=== PATIENT | male | born 1965 | race Caucasian/White ===

== ENCOUNTER 2017-10-18 07:49 | Emergency (ER) | payer BC ==
[~2017-10-18] VITALS: Ht 177.8 cm; Wt 150.3 kg
[~2017-10-18 07:49] MED LIST: ALBU1AER9 INH; ASPI81TA28 PO; ATOR-26 PO; CRG25 PO; LSX20 PO; MELO15TA4 PO
[2017-10-18 07:55] VITALS: TEMP 36.4; Ht 177.8 cm; Wt 150.3 kg
--- NOTE | 2017-10-18 08:31 | EMERGENCY ROOM VISIT NOTE ---
History First contact with patient: 07:56 Chief Complaint: KNEEPAIN Stated Complaint: PAIN IN LEFT KNEE History of Present Illness The patient is a 52 year old male who presents to the Emergency Room with complaints of left knee pain that started 2 days ago. He reports a general aching in his knee that has progressively worsened, now he is having increased pain in the leg with bending and walking, states it hurt too much to walk on the leg. He states the pain is constant, aching and throbbing, worse with bending the knee, better with straightening and resting the knee, 8/10. He has tried Tylenol without relief. He reports a history of a cracked knee Of the left knee approximately 20 years ago, but has not had any ongoing complications related to that. He denies any injuries, twisting motions or falling on the knee. He denies any fevers or chills, nausea, vomiting, chest pain, shortness of breath, swelling in the leg on a numbness or tingling in the leg, rashes. He does state that he has been out hunting, he is unsure of any exposure to tick bites. He also reports a possible history of gout. Review of Systems A complete 10 point review of systems was reviewed with the patient with pertinent positives and negatives as per history of present illness. All else were negative. Past Medical/Surgical History Medical Problems: (1) Calculus Of Ureter (2) Cardiac Dysrhythmias Nec (3) Congestive Heart Failure Nos (4) Diastolic heart failure Family History Diabetes mellitus FH: heart disease FHx: cancer FHx: gallbladder disease Hypertension Kidney disease Social History Smoking Status: Never Smoker Alcohol Use: heavy Drug Use: none Marital Status: Housing Status: lives with significant other Occupation Status: employed Current/Historical Medications Scheduled Cephalexin Monohydrate (Keflex), 500 MG PO QID Sulfamethoxazole-Trimethoprim (Bactrim Ds 800MG/160MG), 1 TAB PO BID Scheduled PRN Hydrocodone/Acetaminophen 5MG/325MG ([place] 5MG/325MG), 1-2 TABLET PO Q6 PRN for Pain Allergies Reviewed in chart Physical Exam Vital Signs Date Time Temp Pulse Resp B/P (MAP) Pulse Ox O2 Delivery O2 Flow Rate FiO2 10/18/17 11:09 98 20 138/79 97 10/18/17 10:09 70 20 183/103 96 10/18/17 07:55 36.4 76 22 205/125 97 Room Air Physical Exam CONSTITUTIONAL: No acute distress, but does appear in some pain. Nontoxic appearing. Well appearing and well nourished. Alert and oriented X 4 with normal affect. Morbidly obese. HEENT: Normocephalic, atraumatic. Pupils equal, round and reactive to light, EOMI. TMs normal. Pharynx normal. Moist mucous membranes. NECK: Supple, full active range of motion without discomfort. RESPIRATORY: Clear to auscultation bilaterally with no wheezing, crackles, rhonchi or stridor. Equal expansion bilaterally. CARDIOVASCULAR: Regular rate and rhythm with no murmurs, rubs or gallops. Normal peripheral perfusion. No edema. GASTROINTESTINAL: Soft, nontender, nondistended. Bowel sounds present in all quadrants. MUSCULOSKELETAL: There is an area of patchy erythema across the anterior knee, tender to palpation, hot to touch. No fluctuance or drainable abscess. No significant effusion within the left knee joint. Patient can fully extend his knee, but has pain with attempts to Floxin knee beyond 45. No pain or swelling in the left ankle. Full range of motion of all other joints without discomfort. INTEGUMENTARY: No rash or other significant dermatologic conditions noted. NEUROLOGIC: Cranial nerves II-XII grossly intact. No focal neurologic deficits noted. Medical Decision & Procedures ER Provider Diagnostic Interpretation: L KNEE 3 VIEWS CLINICAL HISTORY: Left knee pain. History of patellar fracture. COMPARISON: None FINDINGS: Alignment of the left knee is anatomic. No fracture or joint effusion is identified. No osseous lesion is noted. Joint spaces are preserved. There is minimal osteophytosis of the left knee. IMPRESSION: No acute fracture or joint effusion of the left knee. Laboratory Results 10/18/17 09:02 Red Blood Count 4.04, Mean Corpuscular Volume 100.7, Mean Corpuscular Hemoglobin 35.6, Mean Corpuscular Hemoglobin Concent 35.4, Mean Platelet Volume 10.2, Neutrophils (%) (Auto) 69.3, Lymphocytes (%) (Auto) 17.2, Monocytes (%) ( Auto) 11.3, Eosinophils (%) (Auto) 1.3, Basophils (%) (Auto) 0.7, Neutrophils # (Auto) 4.24, Lymphocytes # (Auto) 1.05, Monocytes # (Auto) 0.69, Eosinophils # ( Auto) 0.08, Basophils # (Auto) 0.04 10/18/17 09:02 Test 10/18/17 09:02 White Blood Count 6.11 K/uL (4.8-10.8) Red Blood Count 4.04 M/uL (4.7-6.1) Hemoglobin 14.4 g/dL (14.0-18.0) Hematocrit 40.7 % (42-52) Mean Corpuscular Volume 100.7 fL (80-100) Mean Corpuscular Hemoglobin 35.6 pg (25-34) Mean Corpuscular Hemoglobin Concent 35.4 g/dl (32-36) Platelet Count 197 K/uL (130-400) Mean Platelet Volume 10.2 fL (7.4-10.4) Neutrophils (%) (Auto) 69.3 % Lymphocytes (%) (Auto) 17.2 % Monocytes (%) (Auto) 11.3 % Eosinophils (%) (Auto) 1.3 % Basophils (%) (Auto) 0.7 % Neutrophils # (Auto) 4.24 K/uL (1.4-6.5) Lymphocytes # (Auto) 1.05 K/uL (1.2-3.4) Monocytes # (Auto) 0.69 K/uL (0.11-0.59) Eosinophils # (Auto) 0.08 K/uL (0-0.5) Basophils # (Auto) 0.04 K/uL (0-0.2) RDW Standard Deviation 46.8 fL (36.4-46.3) RDW Coefficient of Variation 12.7 % (11.5-14.5) Immature Granulocyte % (Auto) 0.2 % Immature Granulocyte # (Auto) 0.01 K/uL (0.00-0.02) Erythrocyte Sedimentation Rate 24 mm/hr (0-14) Anion Gap 5.0 mmol/L (3-11) Est Creatinine Clear Calc Drug Dose 156.7 ml/min Estimated GFR () 118.7 Estimated GFR (Non- 102.4 BUN/Creatinine Ratio 18.4 (10-20) Uric Acid 6.6 mg/dl (2.6-7.2) Calcium Level 9.1 mg/dl (8.5-10.1) Total Bilirubin 0.4 mg/dl (0.2-1) Aspartate Amino Transf (AST/SGOT) 64 U/L (15-37) Alanine Aminotransferase (ALT/SGPT) 78 U/L (12-78) Alkaline Phosphatase 70 U/L (45-117) C-Reactive Protein 0.93 mg/dl (0-0.29) Total Protein 6.7 gm/dl (6.4-8.2) Albumin 3.3 gm/dl (3.4-5.0) Globulin 3.4 gm/dl (2.5-4.0) Albumin/Globulin Ratio 1.0 (0.9-2) Lyme Disease IgG Antibody NEG (NEG) Lyme Disease IgM Antibody NEG (NEG) Medications Administered Medications (Trade) Dose Ordered Sig/Ashley Route Start Time Stop Time Status Last Admin Dose Admin Hydromorphone HCl (Dilaudid Inj) 0.5 mg NOW STAT IV 10/18/17 09:18 10/18/17 09:19 DC 10/18/17 09:36 0.5 MG Trimethoprim/ Sulfamethoxazole (Septra Ds 800/ 160MG Tab) 1 tab NOW STAT PO 10/18/17 09:19 10/18/17 09:20 DC 10/18/17 09:35 1 TAB Ceftriaxone Sodium 2000 mg/ Dextrose 70 ml @ 140 mls/hr ONE ONCE IV 10/18/17 09:45 10/18/17 10:14 DC 10/18/17 10:08 140 MLS/HR Medical Decision CC: Patient presenting with complaint of left knee pain Interpretation of Labs: No leukocytosis, no anemia, no significant electrolyte abnormality, normal renal function. Mildly elevated CRP and ESR. Uric acid within normal limits. Negative Lyme testing. Differential Diagnosis: Includes, but not limited to knee sprain/strain, contusion, abrasion, ligamentous injury, fracture, cellulitis, gouty arthritis, Lyme, septic joint, among others. Medication Reconciliation: I attest that I have personally reviewed the patient' s current medication list. Vital signs review: I reviewed the patient's vital signs and interpret them as follows: T: Afebrile; BP: Hypertensive; HR: Tachycardic; RR: Mildly tachypneic; Pulse Ox: Within normal limits on room air. Blood pressure screening: The patient was found to have an elevated blood pressure and was referred to their primary doctor for recheck and further treatment. Summary: Patient was evaluated at bedside, history and physical exam performed. Patient alert and oriented, no acute distress but does appear uncomfortable and in pain. Resting comfortably in the stretcher. There is erythema of the anterior left knee, hot and tender to palpation, pain worsened with flexion, but improved with extension. There is no significant joint effusion or swelling of the knee. Neurovascularly intact distal to the knee. Orders were placed at bedside for labs, IV fluid for hydration, x-ray of the left knee to evaluate for bony abnormality. Patient discussed with Dr. Deleon, who agrees with my assessment and plan. Labs reviewed as above, no significant abnormalities. X-ray imaging negative for any bony abnormality. Exam findings consistent for cellulitis of the knee, I doubt septic knee joint at this time. Patient was covered with IV Rocephin and given a dose of PO Bactrim, sent out with Rx for Bactrim and Keflex. The patient was placed in a knee immobilizer and offered crutches, he states he has crutches at home. He is neurovascularly intact after placement of the immobilizer. Patient reassessed multiple times throughout ED stay, he reports improved pain after medications and immobilization. Tachycardia resolved. He remains afebrile. He was updated on all results and plan for discharge home, he was instructed to follow closely with his PCP and orthopedics. He was also given strict return precautions should his symptoms worsen in any way, he verbalized understanding. Patient was discharged home in stable condition and ambulatory with a knee immobilizer. Medication Reconcilliation Current Medication List: was personally reviewed by me Patient states he is currently not taking any medications Blood Pressure Screening Patient's blood pressure: Elevated blood pressure Blood pressure disposition: Referred to PCP Impression Primary Impression: Cellulitis of left knee Additional Impression: Left knee pain Departure Information Dispostion Home / Self-Care Condition GOOD Prescriptions Hydrocodone/Acetaminophen 5MG/325MG ([place] 5MG/325MG) Tab 1-2 TABLET PO Q6 Y for Pain, #20 TAB PRN PAIN Prov: Vee Bañuelos CRNP 10/18/17 Sulfamethoxazole-Trimethoprim (Bactrim Ds 800MG/160MG) 1 Tab Tab 1 TAB PO BID for 10 Days, #20 TAB Prov: Vee Bañuelos CRNP 10/18/17 Cephalexin Monohydrate (Keflex) 500 Mg Cap 500 MG PO QID for 10 Days, #40 CAP Prov: Abby Bañuelosah RICARDO Norton 10/18/17 Referrals No Doctor, Assigned (PCP) Tony Willett D.O. Patient Instructions ED Infec Skin Cellulitis, ED Knee Pain [place], [place]ine[facility] Additional Instructions You were seen in the Emergency Department for his left knee pain and was found to have cellulitis (skin infection). You have been prescribed Keflex and Bactrim to be taken for 10 days. Both of these medications are antibiotics. Stop these medications and contact a medical provider if you were to develop any significant adverse side effects including: wheezing, shortness of breath, passing out, vomiting, or a diffuse rash. Always take antibiotics as directed and COMPLETE the ENTIRE course regardless of the improvement of your symptoms. Look for signs of worsening infection of the wound including: increased pain, swelling, foul discharge, streaking up the leg, or fevers/chills/feeling ill. If any of these are noticed you should return to the Emergency Department for further assessment and treatment. For pain control, you can use the following [id number] medicines (if >12 yo): - Extra strength (500mg/tab) Tylenol (acetaminophen) 1-2 tabs every 6-8 hours as needed. Do not exceed 6 tablets in a 24 hour period. Avoid taking more than 3 grams (3000 mg) of Tylenol per day. This includes any other sources of acetaminophen you may take on a regular basis. - Regular strength (200 mg/tab) Advil (ibuprofen) 1-2 tabs every 4-6 hours as needed. Do not exceed a dose of 3200 mg per day. Apply warm compresses to the area to help with pain and also to help improve the infection. Review the knee immobilizer for comfort and a able to walk on the knee normally without any pain. Follow-up with the orthopedic surgeon if you continue have knee pain for more than 4-5 days. Follow up with your PCP in 2 days for recheck of your infection, or sooner for worsening symptoms. Return to the emergency department if your symptoms worsen despite treatment course outlined above. Work Instructions Return To Work: 1 day Problem Qualifiers Additional Impression: Left knee pain Chronicity: acute Qualified Codes: M25.562 - Pain in left knee
[2017-10-18] MEDS ORDERED: MoRPHine SULFATE 10 MG/ML CARP/VIAL IV STA (08:47)
--- NOTE | 2017-10-18 09:03 | DIAGNOSTIC IMAGING REPORT ---
L KNEE 3 VIEWS CLINICAL HISTORY: Left knee pain. History of patellar fracture. COMPARISON: None FINDINGS: Alignment of the left knee is anatomic. No fracture or joint effusion is identified. No osseous lesion is noted. Joint spaces are preserved. There is minimal osteophytosis of the left knee. IMPRESSION: No acute fracture or joint effusion of the left knee. Electronically signed by: Anmol Diaz M.D. 10/18/2017 9:02 AM Dictated Date/Time: 10/18/2017 9:01 AM
--- NOTE | 2017-10-18 09:13 | EMERGENCY ROOM VISIT NOTE ---
ED Visit Note First contact with patient: 07:56 I have seen and examined this patient with Vee Bañuelos and generally agree with the treatment plan as discussed. Problem List Medical Problems: (1) Calculus Of Ureter Status: Resolved (2) Cardiac Dysrhythmias Nec Status: Resolved (3) Congestive Heart Failure Nos Status: Chronic (4) Diastolic heart failure Status: Resolved Current/Historical Medications No Active Prescriptions or Reported Meds Allergies Coded Allergies: No Known Allergies (Unverified , 10/18/17) Vital Signs Date Time Temp Pulse Resp B/P (MAP) Pulse Ox O2 Delivery O2 Flow Rate FiO2 10/18/17 07:55 36.4 76 22 205/125 97 Room Air Laboratory Results Test 10/18/17 08:43 Departure Information Prescriptions No Active Prescriptions or Reported Meds Referrals No Doctor, Assigned (PCP) Patient Instructions [facility]
[2017-10-18] MEDS ORDERED: HYDROmorphone INJ 0.5 MG/0.5 ML SYR IV STA (09:18)
[2017-10-18] MEDS ORDERED: CEFTRIAXONE SOD INJ 1 GM ADDVIAL IV STA (09:19)
[2017-10-18] MEDS ORDERED: SULFAMETHOXAZOLE/TRIMETHOPRIM DS 800/160MG TAB PO STA (09:19)
[2017-10-18 09:24] LABS: BASO % 0.7 %; BASO ABS # 0.04 K/uL (0-0.2); COMPLETE YES; EOS % 1.3 %; HEMATOCRIT 40.7 % (42-52); IG% 0.2 %; LYMPH % 17.2 %; LYMPH ABS # 1.05 K/uL (1.2-3.4); MEAN CELL VOLUME 100.7 fL (80-100); MEAN CORPUSCULAR HEMOGLOBIN 35.6 pg (25-34); MEAN CORPUSCULAR HGB CONC 35.4 g/dl (32-36); MEAN PLATELET VOLUME 10.2 fL (7.4-10.4); MONO % 11.3 %; NEUT % 69.3 %; PLATELET COUNT 197 K/uL (130-400); RED BLOOD COUNT 4.04 M/uL (4.7-6.1); WHITE BLOOD COUNT 6.11 K/uL (4.8-10.8)
[2017-10-18] MEDS ORDERED: CEFTRIAXONE SOD INJ 2000 MG in DEXTROSE 5% 50ML IV ONE (09:45)
[2017-10-18 09:49] LABS: BUN/CREATININE RATIO 18.4 (10-20); C-REACTIVE PROTEIN 0.93 mg/dl (0-0.29); CALCIUM 9.1 mg/dl (8.5-10.1); CREATININE 0.82 mg/dl (0.60-1.40); POTASSIUM 4.3 mmol/L (3.5-5.1); URIC ACID 6.6 mg/dl (2.6-7.2)
[2017-10-18 10:16] LABS: LYME DISEASE AB IGG NEG (NEG); LYME DISEASE AB IGM NEG (NEG)
[2017-10-18] MEDS ORDERED: SULF800T23 PO (10:26)
[2017-10-18] MEDS ORDERED: CEPH500C PO (10:26)
[2017-10-18] MEDS ORDERED: HYDR-5688 PO (10:29)
[2017-10-18 11:09] VITALS: BP 138/79; PULSE 98; O2SAT 97
== END 2017-10-18 11:11 | disposition home or self-care (01) ==
LOC: C.EDB 07:50
DX: L03.116 Cellulitis of left lower limb (principal); I49.9 Cardiac arrhythmia, unspecified; I50.30 Unspecified diastolic (congestive) heart failure; Z87.442 Personal history of urinary calculi; Z72.89 Other problems related to lifestyle; Z83.3 Family history of diabetes mellitus; Z82.49 Family history of ischemic heart disease and other diseases of the circulatory system; Z80.9 Family history of malignant neoplasm, unspecified; Z83.79 Family history of other diseases of the digestive system; Z84.1 Family history of disorders of kidney and ureter

== ENCOUNTER → 2017-11-01 | Outpatient (CLI) | payer BC ==
[~2017-11-01] MED LIST changes: -ALBU1AER9 INH; -ASPI81TA28 PO; -ATOR-26 PO; -CRG25 PO; +HYDR-5688 PO; -LSX20 PO; -MELO15TA4 PO
--- NOTE | 2017-11-01 10:49 | DIAGNOSTIC IMAGING REPORT ---
MRI OF THE LEFT KNEE WITHOUT CONTRAST CLINICAL HISTORY: Left knee pain clicking and instability. COMPARISON STUDY: Left knee radiographs October 18, 2017. TECHNIQUE: Utilizing a 1.5 Marcie magnet and dedicated coil, multiplanar, multiecho imaging of the left knee was performed without intravenous or intraarticular contrast. FINDINGS: Alignment of the left knee is anatomic. Extensor mechanism is intact. There is a small left knee joint effusion. There is increased signal intensity within the fibers of the anterior cruciate ligament however the ACL appears intact. The posterior cruciate ligament is intact. The medial collateral ligament and lateral collateral ligament complex are intact. This study is mildly compromised by motion artifact. Lateral meniscus is intact with slight irregularity of the body. There is no definite lateral meniscal tear. There is a complex tear involving the body and posterior horn of the medial meniscus. The meniscus is diminutive. The meniscus is partially extruded and slightly extends into the meniscal gutter. There is mild chondrosis within the patellofemoral compartment. There is moderate chondrosis within the medial compartment. IMPRESSION: 1. Complex tear of the body and posterior horn the medial meniscus which is partially extruded and diminutive. Portion of medial meniscus extends into the meniscal gutter. 2. Moderate chondrosis of the medial compartment with mild chondrosis within the patellofemoral compartment. 3. Findings suggestive of mucoid degeneration of the anterior cruciate ligament. 4. Trace joint effusion. Electronically signed by: Anmol Diaz M.D. 11/01/2017 10:47 AM Dictated Date/Time: 11/01/2017 10:32 AM
== END | disposition home or self-care (01) ==
LOC: C.MRI 09:34
PROVIDERS: ATTEND Family Medicine
DX: S83.232A Complex tear of medial meniscus, current injury, left knee, initial encounter (principal); X58.XXXA Exposure to other specified factors, initial encounter

== ENCOUNTER 2019-05-22 20:23 | Inpatient (IN) ==
--- OUTSIDE RECORDS SUMMARY | 2019-05-22 20:25 | External Medical Summary | Continuity of Care Document ---
:1965 Author Name Sally Yancey Address Unavailable Unavailable , Care Team Providers Name Role Phone Sally Yancey Unavailable [email or web address] Unavailable Unavailable Problems Active medical history not documented Allergies and Adverse Reactions Allergy history not documented Medications Medications not documented Procedures Procedures not documented Immunizations Immunizations not documented Plan of Treatment Planned Observations Planned Goals not documented Results No Known Results Results not documented
[2019-05-22] MEDS ORDERED: SODIUM CHLORIDE 0.9% 1000ML 1,000 ML IV ONE (21:25)
[2019-05-22] MEDS ORDERED: MECLIZINE HCL 25 MG TAB PO STA (21:25)
[2019-05-22] MEDS ORDERED: SODIUM CHLORIDE 0.9% 1000ML 1,000 ML IV SCH (21:30)
--- NOTE | 2019-05-22 21:58 | CT Scan Report ---
CT head/brain wo con CLINICAL HISTORY: 53 years-old Male presenting with gait instability. TECHNIQUE: Multidetector CT imaging of the head was performed without the use of intravenous contrast . IV contrast: None. One or more dose lowering techniques were used consistent with the principles of ALARA (as low as reasonably achievable), including automatic exposure control, mA or kV adjustment t o individual patient size, and/or use of iterative reconstruction. COMPARISON: 07/12/2015. CT DOSE (mGy.cm): The estimated cumulative dose is 537.48 mGy.cm. FINDINGS: Alkylation Operator topogram: Unremarkable. Ventricles and sulci normal in size. No hemorrhage. Brain parenchyma normal in appearance with preser chas robins-white differentiation. No acute territorial infarct. No mass effect or midline shift. No ext ra-axial fluid collection. Paranasal sinuses and mastoid air cells clear. Calvarium intact. IMPRESSION: 1. No acute intracranial abnormality. Electronically signed by: Aravind Herron M.D. 05/22/2019 9:56 PM
[2019-05-22 21:59] LABS: Basophils # (auto) 0.03 K/uL (0-0.2); Basophils % (auto) 0.4 %; Eosinophils # (auto) 0.04 K/uL (0-0.5); Eosinophils % (auto) 0.5 %; Hematocrit (blood only) 39.3 % (42-52); Hemoglobin 13.6 g/dL (14.0-18.0); Immature Granulocytes # (auto) 0.02 K/uL (0.00-0.02); Immature Granulocytes % (auto) 0.3 %; Lymphocytes # (auto) 1.25 K/uL (1.2-3.4); Lymphocytes % (auto) 16.4 %; Mean Corpuscular Hgb Conc 34.6 g/dL (32-36); Mean Corpuscular Volume 104.5 fL (80-100); Mean Platelet Volume 9.7 fL (7.4-10.4); Monocytes # (auto) 0.44 K/uL (0.11-0.59); Monocytes % (auto) 5.8 %; Neutrophils # (auto) 5.84 K/uL (1.4-6.5); Neutrophils % (auto) 76.6 %; Platelet Count 120 K/uL (130-400); RDW Coefficient of Variation 13.4 % (11.5-14.5); Red Blood Count 3.76 M/uL (4.7-6.1); White Blood Count 7.62 K/uL (4.8-10.8)
--- NOTE | 2019-05-22 22:12 | XRay Report ---
XR chest 1V portable CLINICAL HISTORY: 53 years-old Male presenting with weakness, dizziness. TECHNIQUE: Portable upright AP view of the chest was obtained. COMPARISON: 07/12/2015. FINDINGS: Cardiac silhouette top normal in size. No focal opacity. No large effusion or pneumothorax. Osseous s tructures normal. Upper abdomen normal. IMPRESSION: 1. Borderline cardiomegaly. No other evidence of acute cardiopulmonary disease. Electronically signed by: Aravind Herron M.D. 05/22/2019 10:10 PM
[2019-05-22 22:15] LABS: Albumin Level 3.7 gm/dl (3.4-5.0); BUN Creatinine Ratio 17.3 (10-20); Calcium 8.9 mg/dl (8.5-10.1); Creatinine Clr Calc Pharmacy 122.8 ml/min; Est GFR (African American) 110.4; Est GFR (Non-African American) 95.3; Magnesium 1.9 mg/dl (1.8-2.4)
[2019-05-22 22:26] LABS: Albumin Globulin Ratio 1.2 (0.9-2); Bilirubin,Total 0.4 mg/dl (0.2-1); Total Protein 6.7 gm/dl (6.4-8.2)
[2019-05-22] MEDS ORDERED: ASPIRIN CHEW 324 MG PO STA (22:38)
[2019-05-22] MEDS ORDERED: ASPIRIN 81 MG CHEW ONE (22:41)
[2019-05-22] MEDS ORDERED: GABAPENTIN 1200MG ALCOHOL WITHDRAWAL LOAD PO STA (23:22)
[2019-05-22] MEDS ORDERED: LORazepam 3 MG/6 ML VIAL IV PRN (23:22)
[2019-05-22] MEDS ORDERED: LORazepam 2 MG/4 ML VIAL IV PRN (23:22)
[2019-05-22] MEDS ORDERED: LORazepam 1 MG/2 ML VIAL IV PRN (23:22)
[2019-05-22] MEDS ORDERED: MULTI-VITAMIN INFUSION 10 ML, THIAMINE HCL 100 MG, FOLIC ACID 1 MG in SODIUM CHLORIDE 0... IV STA (23:23)
[2019-05-22] MEDS ORDERED: ATIVAN IV ALCOHOL WITHDRAWL IV SCH (23:30)
[2019-05-23] MEDS ORDERED: GABAPENTIN 600 MG TAB PO SCH (01:00)
--- NOTE | 2019-05-23 01:29 | History & Physical Report ---
Date of Service May 23, 2019 Assessment & Plan (1) Gait instability: Multifactorial : Alcoholism/beginning alcohol withdrawal Hypertensive urgency Rule out CVA, ? Aspirin failure Rule out neuropathy secondary to alcoholism Chronic diastolic heart failure, patient euvolemic to dry Thrombocytopenia, new onset, ? Secondary to alcohol liver disease Complicated bronchitis, no sepsis Chronic anemia, baseline hemoglobin of 13 Medical telemetry Neurochecks DT precautions MRI/MRA of the brain RE gait instability rule out stroke Continue home aspirin for stroke prevention Permissive hypertension until stroke ruled out May need Neurology eval pending work-up results Doxycycline, nebs for complicated bronchitis DVT prophylaxis. SCDs RE thrombocytopenia Full code History of Present Illness Chief Complaint: Gait imbalance Primary Care Provider: Toro Reyes MD History obtained from patient, family, and records. Medical history significant for chronic diastolic heart failure (EF 60%, TTE 2011 ), hypertension, hyperlipidemia, asthma as per records, alcohol abuse, chronic anemia baseline hemoglobin of 13. Recent confinement April 2011 for chest pain. ACS ruled out with normal coronaries on cardiac cath. Yesterday patient noted unsteady gait symptoms without dizziness. Patient having trouble with balance and focusing. Head pressure complaints. No chest pain, no S OB. Had to call off work because of illness. Junky cough symptoms for a few weeks now secondary to sinusitis symptoms. No fever, no chills, no aspiration. Patient admits to not being compliant with home aspirin Rx. Patient given aspirin upon arrival at the ER. 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 Allergies Allergy/AdvReac Type Severity Reaction Status Date / Time morphine AdvReac Intermediate ITCHING Verified 05/22/19 22:56 Home Medications Home Medications Medication Instructions Recorded Confirmed Type carvedilol 6.25 mg PO BID 05/22/19 05/22/19 History Past Med/Surg History Medical History Hypertension Tinnitus Social History Preferred Language: Greenlandic Communication Ability: Effective Door Person Required: No Beliefs That Will Affect Care: None Current Living Situation: Spouse Other Information That Helps Us Care for You: No Feels Safe at Home: Yes Safety Concerns: Feels Safe At This Time Smoking Status: Unknown if ever smoked Hx Alcohol Use: Yes Alcohol type: other Hx Substance Use: No Review of Systems Review of Systems: As per HPI, all 10 systems reviewed, all other ROS negative Physical Exam Physical Exam: GENERAL: uncomfortable, tremulous, obese, no respiratory distress, alcoholic fetor SKIN: Pallor normal color, warm HEENT: Partial alopecia, pale palpebral conjunctivae, no ptosis, dry buccal mucosa NECK : Supple, short, no tenderness CHEST : Occasional wheeze, no tenderness HEART : RRR, no obvious murmurs ABDOMEN: Some distention, nontender EXTREMITIES : Minimal LE swelling/tenderness, no other conspicuous deformities noted NEUROLOGIC : Coherent, no facial asymmetry, tremulous, gait and stance not asses sed Results & Data Vital Signs (Past 12 Hours) Vital Signs Temp Pulse Pulse Resp BP BP Pulse Ox 05/23/19 00:56 76 18 180/101 H 96 05/22/19 23:45 75 18 181/103 H 97 05/22/19 22:30 74 14 183/106 H 94 05/22/19 22:00 78 13 175/113 H 96 05/22/19 21:57 82 17 184/104 H 98 05/22/19 21:30 71 22 161/101 H 05/22/19 21:00 70 16 154/93 H 95 05/22/19 20:57 69 21 94 05/22/19 20:50 68 18 155/101 H 94 05/22/19 20:24 36.5 C 71 16 172/101 H 95 Laboratory Results Laboratory Results WBC 7.62 K/uL (4.8-10.8) 05/22/19 21:37 RBC 3.76 M/uL (4.7-6.1) L 05/22/19 21:37 Hgb 13.6 g/dL (14.0-18.0) L 05/22/19 21:37 Hct 39.3 % (42-52) L 05/22/19 21:37 MCV 104.5 fL (80-100) H 05/22/19 21:37 MCH 36.2 pg (25-34) H 05/22/19 21:37 MCHC 34.6 g/dL (32-36) 05/22/19 21:37 RDW Std Deviation 51.0 fL (36.4-46.3) H 05/22/19 21:37 RDW Coeff of Shayy 13.4 % (11.5-14.5) 05/22/19 21:37 Plt Count 120 K/uL (130-400) L 05/22/19 21:37 MPV 9.7 fL (7.4-10.4) 05/22/19 21:37 Immature Gran % (Auto) 0.3 % 05/22/19 21:37 Neut % (Auto) 76.6 % 05/22/19 21:37 Lymph % (Auto) 16.4 % 05/22/19 21:37 [place] % (Auto) 5.8 % 05/22/19 21:37 Eos % (Auto) 0.5 % 05/22/19 21:37 Baso % (Auto) 0.4 % 05/22/19 21:37 Immature Gran # (Auto) 0.02 K/uL (0.00-0.02) 05/22/19 21:37 Neut # (Auto) 5.84 K/uL (1.4-6.5) 05/22/19 21:37 Lymph # (Auto) 1.25 K/uL (1.2-3.4) 05/22/19 21:37 [place] # (Auto) 0.44 K/uL (0.11-0.59) 05/22/19 21:37 Eos # (Auto) 0.04 K/uL (0-0.5) 05/22/19 21:37 Baso # (Auto) 0.03 K/uL (0-0.2) 05/22/19 21:37 Sodium 142 mmol/L (136-145) 05/22/19 21:37 Potassium 4.0 mmol/L (3.5-5.1) 05/22/19 21:37 Chloride 108 mmol/L (98-107) H 05/22/19 21:37 Carbon Dioxide 27 mmol/L (21-32) 05/22/19 21:37 Anion Gap 7.0 (3-11) 05/22/19 21:37 BUN 16 mg/dl (7-18) 05/22/19 21:37 Creatinine 0.92 mg/dl (0.6-1.4) 05/22/19 21:37 Est Cr Clr Drug Dosing 122.8 ml/min 05/22/19 21:37 Est GFR ( Amer) 110.4 05/22/19 21:37 Est GFR (Non-Af Amer) 95.3 05/22/19 21:37 BUN/Creatinine Ratio 17.3 (10-20) 05/22/19 21:37 Glucose 106 mg/dl (70-99) H 05/22/19 21:37 Calcium 8.9 mg/dl (8.5-10.1) 05/22/19 21:37 Magnesium 1.9 mg/dl (1.8-2.4) 05/22/19 21:37 Total Bilirubin 0.4 mg/dl (0.2-1) 05/22/19 21:37 AST 42 U/L (15-37) H 05/22/19 21:37 ALT 25 U/L (12-78) 05/22/19 21:37 Alkaline Phosphatase 67 U/L (45-117) 05/22/19 21:37 Total Protein 6.7 gm/dl (6.4-8.2) 05/22/19 21:37 Albumin 3.7 gm/dl (3.4-5.0) 05/22/19 21:37 Globulin 3.0 gm/dl (2.5-4.0) 05/22/19 21:37 Albumin/Globulin Ratio 1.2 (0.9-2) 05/22/19 21:37 TSH 1.230 uIu/ml (0.300-4.500) 05/22/19 21:37 Ethyl Alcohol mg/dL 207.7 mg/dl (0-3) H 05/22/19 23:[address] head: No acute intracranial pathology Chest x-ray: Cardiomegaly EKG as per my interpretation : rate 70, NSR, normal axis, no ischemia
[2019-05-23] MEDS ORDERED: PHARMACIST DISCHARGE MED REC CONSULT PRN (02:31)
[2019-05-23] MEDS ORDERED: ACETAMINOPHEN 325 MG TAB PO PRN (02:31)
[2019-05-23] MEDS ORDERED: XOPENEX/ATROVENT 1.25mg/0.5MG NEB COMBO NEB SCH (02:31)
[2019-05-23] MEDS ORDERED: NITROGLYCERIN SL 0.4 MG/TAB TAB SL PRN (02:31)
[2019-05-23] MEDS: DOXYCYCLINE HYCLATE 100 MG CAP PO SCH ×3 (03:00→21:07)
[2019-05-23] MEDS: CARVEDILOL 6.25 MG TAB PO SCH ×3 (03:00→21:04)
[2019-05-23 03:16] LABS: Appearance Urine Clear (Clear); Bacteria Urine Automated Negative (Negative); Bilirubin Urine Negative (Negative); Blood Urine 1+ (Negative); Color Urine Yellow; Glucose Urine UA Negative (Negative); Ketones Urine Negative (Negative); Leukocyte Esterase Urine Negative (Negative); Nitrite Urine Negative (Negative); Protein Urine 1+ (Negative); RBC Urine Automated 0-4 /hpf (0-4); Specific Gravity Urine 1.014 (1.000-1.030); Urobilinogen Urine Negative (Negative); WBC Urine Automated 0 /hpf (0-5)
[2019-05-23] MEDS: GABAPENTIN 600 MG TAB PO SCH ×3 (05:29→21:46)
[2019-05-23 06:33] LABS: Basophils # (auto) 0.04 K/uL (0-0.2); Basophils % (auto) 0.8 %; Eosinophils # (auto) 0.05 K/uL (0-0.5); Hematocrit (blood only) 36.2 % (42-52); Hemoglobin 12.2 g/dL (14.0-18.0); Immature Granulocytes # (auto) 0.01 K/uL (0.00-0.02); Immature Granulocytes % (auto) 0.2 %; Lymphocytes # (auto) 1.85 K/uL (1.2-3.4); Lymphocytes % (auto) 35.3 %; Mean Corpuscular Hgb Conc 33.7 g/dL (32-36); Mean Corpuscular Volume 103.7 fL (80-100); Mean Platelet Volume 9.4 fL (7.4-10.4); Monocytes # (auto) 0.46 K/uL (0.11-0.59); Monocytes % (auto) 8.8 %; Neutrophils # (auto) 2.83 K/uL (1.4-6.5); Neutrophils % (auto) 53.9 %; Platelet Count 113 K/uL (130-400); RDW Coefficient of Variation 13.2 % (11.5-14.5); RDW Standard Deviation 49.9 fL (36.4-46.3); Red Blood Count 3.49 M/uL (4.7-6.1); White Blood Count 5.24 K/uL (4.8-10.8)
--- NOTE | 2019-05-23 06:41 | Magnetic Resonance Report ---
MR brain wo con HISTORY: 53 years-old Male stroke acute dizziness with gait instability COMPARISON: MRA of the head of same day, CT head 05/22/2019 TECHNIQUE: Multiplanar multisequence MRI of the brain was obtained without the use of IV contrast. FINDINGS: No restricted diffusion to suggest acute or subacute infarction. The midline structures including the corpus callosum, brainstem, optic chiasm, pituitary and pineal glands appear unremarkable on the sag ittal T1 series. No cerebellar tonsillar herniation. Degenerative changes noted about the imaged cerv ical spine. No acute intracranial hemorrhage, midline shift, abnormal extra-axial collection, hydrocephalus or in tracranial mass. Minimal patchy T2/FLAIR hyperintensities of the cerebral hemispheres bilaterally, li danna of no clinical significance. Findings may reflect early developing chronic microvascular ischemi c disease. Major flow voids at the level of the skull base appear patent. Mastoid air cells are clear . Minimal mucosal thickening of the paranasal sinuses. Skull, soft tissues and orbits are unremarkabl e. IMPRESSION: No acute intracranial abnormality. The above report was generated using voice recognition software. It may contain grammatical, syntax o r spelling errors. Electronically signed by: Abdulkadir Hutton M.D. 05/23/2019 6:40 AM
[2019-05-23 06:45] LABS: INR 1.1 (0.9-1.1)
--- NOTE | 2019-05-23 06:55 | Magnetic Resonance Report ---
MRA OF THE INTRACRANIAL CIRCULATION WITHOUT CONTRAST CLINICAL HISTORY: Stroke. Visual disturbance. Balance difficulties. COMPARISON STUDY: Head CT May 22, 2019. TECHNIQUE: Utilizing a 1.5 Marcie magnet and 3-D [id number] technique, unenhanced MRA of the intra cranial circulation was obtained. FINDINGS: The bilateral M1, M2, A1 and A2 segments are patent. There is no intracranial aneurysm. The intracranial portion of the right vertebral artery is diminutive. 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 The left vertebral artery is dominant. The basilar artery is diminutive, due to large bilate ral posterior communicating arteries. The bilateral posterior screw arteries are patent. No abrupt ve ssel cut off is identified. IMPRESSION: 1. No abrupt vessel cut off. No intracranial aneurysm. 2. 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 Diminutive basilar artery due to la rge bilateral posterior communicating arteries. Electronically signed by: Anmol Diaz M.D. 05/23/2019 6:53 AM
[2019-05-23 07:05] LABS: Albumin Level 3.2 gm/dl (3.4-5.0); BUN Creatinine Ratio 16.5 (10-20); Creatinine Clr Calc Pharmacy 151.4 ml/min; Est GFR (African American) 122.9; Est GFR (Non-African American) 106.1; Potassium 3.6 mmol/L (3.5-5.1)
[2019-05-23 07:08] LABS: Albumin Globulin Ratio 1.2 (0.9-2); Bilirubin,Total 0.6 mg/dl (0.2-1); Globulin 2.6 gm/dl (2.5-4.0); Total Protein 5.9 gm/dl (6.4-8.2)
[2019-05-23] MEDS: LEVALBUTEROL 1.25MG/0.5ML NEB INH SCH ×3 (07:09→19:06)
[2019-05-23] MEDS: IPRATROPIUM BROMIDE NEB SOLN 0.02% 2.5 ML VIAL INH SCH ×3 (07:09→19:06)
[2019-05-23] MEDS: ASPIRIN 81 MG ECTAB PO SCH (08:25)
[2019-05-23 08:55] LABS: Folate (Folic Acid) 3.42 ng/ml (>5.38)
[2019-05-23] MEDS ORDERED: ENOXAPARIN INJ 40 MG/0.4 ML SYR SQ SCH (09:00)
[2019-05-23 11:07] LABS: Lyme Ab IgG w/WB Rflx Negative (Negative); Lyme Ab IgM w/WB Rflx Negative (Negative)
[2019-05-23] MEDS ORDERED: HydrALAZINE HCL 20 MG/ML VIAL IV STA (13:04)
--- NOTE | 2019-05-23 13:43 | Communication Note ---
Date of Service: May 23, 2019 Pt was seen and examined Lying in bed with no distress Pt said that he feels fine He said that he had a few shot of alcohol yesterday morning He said that he never spent more than 3 days not drinking alcohol He denies any history of alcohol withdrawn or DT Currently denies any chest pain, palpitation, headache, dizziness, weakness and SOB General- No acute distress Head- atraumatic Eyes- PERRL, EOMI, ENT- oropharynx clear Neck- supple, no JVD Lungs- clear to auscultation Heart- regular rhythm; no murmur Abdomen- normal bowel sounds, soft, nontender Extremities- no calf tenderness Neuro- alert, oriented x 3; PERRL, EOMI; no facial palsy; no dysarthria Skin- warm & dry A/P Dizziness/Gait Instability Possible related to alcohol intoxication CT head negative MRI head showed no acute intracranial abnormality. 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 Diminutive basilar artery due to large bilateral posterior communicating arteries. No focal neuro deficit on exam Continue PT/OT Hypertensive Urgency BP elevated 209/116 Received IV Hydralazine stat dose Continue Carvedilol Will add on prn IV hydralazine Monitor BP Alcohol abuse Alcohol level 207 Denies any history of alcohol withdrawn or DT Continue gabapentin and lorazepam alcohol withdrawn protocol Continue monitor closely for sign of withdrawn and DT Counseling on alcohol cessation DVT px on Lovenox subq CODE STATUS FULL CODE
--- NOTE | 2019-05-23 23:26 | Emergency Department Note ---
Entered by Sara Biggs acting as a scribe for Ajay Alvarado MD History of Present Illness General Chief complaint: Dizziness Stated complaint: DIZZINESS, FEELS PRESSURE IN HEAD Time Seen by Provider: 05/22/19 21:01 Source: patient Limitations: no limitations History of Present Illness Onset (ago): hour(s) 2 Location: head Severity: similar to prior episodes Pain Consistency: + constant Quality: + other (dizziness) Exacerbated By: + other (change in vision ) Associated symptoms: + denies other symptoms (confusion, slurred speech, SOB, and CP) and + other ("pressure in his head," worsening ringing in his ears, a cough, and difficulty walking) The patient is a 53 white male w/ PMHx HTN and tinnitus who presents to the ED w/ CC of constant dizziness beginning at 1900 this evening, about 2 hours ago. The patient notes that the symptoms began while he was driving to work. The patient's , at bedside, reports that this is similar to previous episodes. He complains of "pressure in his head," worsening ringing in his ears, a cough, and difficulty walking. The patient denies any confusion, slurred speech, SOB, and CP. He notes that change in vision worsens the dizziness. The patient denies any recent head trauma/injury, recent change in elevation, and recent tick bites. Home Medications Home Medications Medication Instructions Recorded Confirmed Type carvedilol 6.25 mg PO BID 05/22/19 05/22/19 History Allergies Allergy/AdvReac Type Severity Reaction Status Date / Time morphine AdvReac Intermediate ITCHING Verified 05/22/19 22:56 Past Med/Surg History Medical History Hypertension Tinnitus Social History Preferred Language: Lithuanian Communication Ability: Effective Podiatrist Required: No Beliefs That Will Affect Care: None Current Living Situation: Spouse Other Information That Helps Us Care for You: No Feels Safe at Home: Yes Safety Concerns: Feels Safe At This Time Smoking Status: Unknown if ever smoked Hx Alcohol Use: Yes Alcohol type: other Hx Substance Use: No Review of Systems See HPI for pertinent positives & negatives. and A total of 10 systems reviewed and were otherwise negative Physical Exam Vital Signs Vital Signs - 24 hr 05/22/19 23:45 05/23/19 00:56 Pulse Rate [Right Finger] 75 76 Respiratory Rate 18 18 Respiratory Effort / Characteristics Non-Labored Spontaneous Non-Labored Spontaneous Respiratory Depth Normal Normal Respiratory Pattern Regular Regular Blood Pressure [Right Arm] 181/103 H 180/101 H Blood Pressure Mean [Right Arm] 129 127 Blood Pressure Position [Right Arm] Lying Lying Pulse Oximetry 97 96 Oxygen Delivery Method Room Air Room Air GENERAL: Well appearing, well nourished, NAD, non-toxic. EYE EXAM: Normal conjunctiva. PERRL, no anisocoria and EOM's grossly intact w/o pain. No nystagmus. EARS: TMs clear, no effusions OROPHARYNX: Moist mucous membranes. Grossly normal dentition. NECK: Supple, no nuchal rigidity, no adenopathy, non-tender. No signs of meningismus. LUNGS: Clear to auscultation. Normal chest wall mechanics. HEART: NSR, no MRG. ABDOMEN: Abdomen soft, non-tender, normo-active bowel sounds, no masses, no rebound or guarding. BACK: No CVA TTP. SKIN: No rashes and no bruising. UPPER EXTREMITIES: Upper extremities are grossly normal. LOWER EXTREMITIES: No pitting edema. No calf pain. NEURO EXAM: A&O x3, cranial nerves II-XII grossly intact, normal speech, 5/5 st rength throughout, no sensory deficits, good finger to nose, no pronator drift, moves all 4 extremities on command w/o issue. +Romberg. Course 2112: The patient was evaluated in room A11. A complete history and physical exam was performed. 2237: I reassessed the patient, and his symptoms were no better. 2254: I spoke with Dr. Treviño, [facility]ist, about the patient's case. He will further evaluate the patient. Consultations Consultation #1: The patient is a 27 white female w/ PMHx migraines who presents to the ED w/ CC of a persistent rash on her upper extremities beginning about an hour ago. Time: 22:55 Administered Medications Aspirin (Ecotrin Ectab) 81 mg PO QAM [facility] Stop: 06/22/19 08:59 Last Admin: 05/23/19 08:25 Dose: 81 mg Documented by: [id number] Carvedilol (Coreg) 6.25 mg PO BID [facility] Stop: 06/22/19 19:59 Last Admin: 05/23/19 21:04 Dose: 6.25 mg Documented by: [id number] Doxycycline Hyclate (Vibramycin) 100 mg PO BID [facility] Stop: 05/30/19 01:34 Last Admin: 05/23/19 21:07 Dose: 100 mg Documented by: [id number] Admin: 05/23/19 13:20 Dose: Not Given Documented by: [id number] Admin: 05/23/19 03:00 Dose: 100 mg Documented by: [id number] Gabapentin (Neurontin) 600 mg PO Q8H [facility] Stop: 05/24/19 12:01 Last Admin: 05/23/19 21:46 Dose: 600 mg Documented by: [id number] Ipratropium Perry (Atrovent 0.02% 0.5mg/2.5ml) 0.5 mg INH Q6R [facility] Stop: 06/22/19 07:59 Last Admin: 05/23/19 19:06 Dose: 0.5 mg Documented by: [id number] Admin: 05/23/19 14:04 Dose: 0.5 mg Documented by: [id number] Admin: 05/23/19 07:09 Dose: 0.5 mg Documented by: [id number] Levalbuterol HCl (Xopenex 1.25mg/0.5ml Neb) 1.25 mg INH Q6R [facility] Stop: 06/22/19 07:59 Last Admin: 05/23/19 19:06 Dose: 1.25 mg Documented by: [id number] Admin: 05/23/19 14:04 Dose: 1.25 mg Documented by: [id number] Admin: 05/23/19 07:09 Dose: 1.25 mg Documented by: [id number] Discontinued Medications Aspirin (Aspirin) 324 mg PO NOW STA Stop: 05/22/19 22:39 Last Admin: 05/22/19 22:42 Dose: Not Given Documented by: [id number] Aspirin (Aspirin Chew) Confirm Administered Dose 324 mg .ROUTE .STK-MED ONE Stop: 05/22/19 22:42 Last Admin: 05/22/19 22:42 Dose: 324 mg Documented by: [id number] Carvedilol (Coreg) 3.125 mg PO BID [facility] Stop: 06/22/19 01:44 Last Admin: 05/23/19 08:25 Dose: 3.125 mg Documented by: [id number] Admin: 05/23/19 03:00 Dose: 3.125 mg Documented by: [id number] Enoxaparin Sodium (Lovenox) 40 mg SQ QAM [facility] Stop: 06/22/19 08:59 Last Admin: 05/23/19 08:24 Dose: 40 mg Documented by: [id number] Gabapentin (Neurontin) 1,200 mg PO TODAY@0100 [facility] Stop: 05/23/19 01:01 Last Admin: 05/23/19 00:54 Dose: 1,200 mg Documented by: [id number] Gabapentin (Neurontin) 600 mg PO Q6H [facility] Stop: 05/23/19 12:01 Last Admin: 05/23/19 13:18 Dose: 600 mg Documented by: [id number] Admin: 05/23/19 05:29 Dose: 600 mg Documented by: [id number] Hydralazine HCl (Hydralazine Hcl) 10 mg IV NOW STA Stop: 05/23/19 13:05 Last Admin: 05/23/19 13:19 Dose: 10 mg Documented by: [id number] Sodium Chloride (Nss 1000ml) 1,000 mls @ 999 mls/hr IV .Q1H1M ONE Stop: 05/22/19 22:25 Last Infusion: 05/22/19 22:53 Dose: 0 mls/hr Documented by: [id number] Infusion: 05/22/19 22:53 Dose: 0 mls/hr Documented by: [id number] Admin: 05/22/19 21:40 Dose: 999 mls/hr Documented by: [id number] Sodium Chloride (Nss 1000ml) 1,000 mls @ 999 mls/hr IV .Q1H1M [facility] Stop: 05/22/19 22:30 Last Infusion: 05/22/19 22:53 Dose: 0 mls/hr Documented by: [id number] Admin: 05/22/19 21:40 Dose: 999 mls/hr Documented by: [id number] Multivitamins 10 ml/ Thiamine HCl 100 mg/ Folic Acid 1 mg/Sodium Chloride 1,011.2 mls @ 50 mls/hr IV .[id number] STA Stop: 05/23/19 19:36 Last Infusion: 05/23/19 21:33 Dose: 0 mls/hr Documented by: [id number] Admin: 05/23/19 00:47 Dose: 50 mls/hr Documented by: [id number] Meclizine HCl (Antivert) 25 mg PO NOW STA Stop: 05/22/19 21:26 Last Admin: 05/22/19 21:39 Dose: 25 mg Documented by: [id number] Medical Decision Making Differential Diagnosis Etiologies such as benign positional vertigo, labrynthitis, dehydration, hypovolemia, anemia, tumor, infection, hypoglycemia, electrolyte abnormalities, cardiac sources, toxicological sources, central neurologic process, as well as others were entertained. Medical Records Attestation: I reviewed the patient's medical records. Home Medications Current Medication List: was personally reviewed by me Laboratory Data Attestation: I reviewed the patient's lab results. Result diagrams: 05/23/19 06:10 05/23/19 06:10 Lab Results 05/22/19 05/22/19 05/22/19 Range/Units 21:37 21:37 23:17 WBC 7.62 (4.8-10.8) K/uL RBC 3.76 L (4.7-6.1) M/uL Hgb 13.6 L (14.0-18.0) g/dL Hct 39.3 L (42-52) % MCV 104.5 H (80-100) fL MCH 36.2 H (25-34) pg MCHC 34.6 (32-36) g/dL RDW Std Deviation 51.0 H (36.4-46.3) fL RDW Coeff of Shayy 13.4 (11.5-14.5) % Plt Count 120 L (130-400) K/uL MPV 9.7 (7.4-10.4) fL Immature Gran % (Auto) 0.3 % Neut % (Auto) 76.6 % Lymph % (Auto) 16.4 % [place] % (Auto) 5.8 % Eos % (Auto) 0.5 % Baso % (Auto) 0.4 % Immature Gran # (Auto) 0.02 (0.00-0.02) K/uL Neut # (Auto) 5.84 (1.4-6.5) K/uL Lymph # (Auto) 1.25 (1.2-3.4) K/uL [place] # (Auto) 0.44 (0.11-0.59) K/uL Eos # (Auto) 0.04 (0-0.5) K/uL Baso # (Auto) 0.03 (0-0.2) K/uL Sodium 142 (136-145) mmol/L Potassium 4.0 (3.5-5.1) mmol/L Chloride 108 H (98-107) mmol/L Carbon Dioxide 27 (21-32) mmol/L Anion Gap 7.0 (3-11) BUN 16 (7-18) mg/dl Creatinine 0.92 (0.6-1.4) mg/dl Est Cr Clr Drug Dosing 122.8 ml/min Est GFR ( Amer) 110.4 Est GFR (Non-Af Amer) 95.3 BUN/Creatinine Ratio 17.3 (10-20) Glucose 106 H (70-99) mg/dl Calcium 8.9 (8.5-10.1) mg/dl Magnesium 1.9 (1.8-2.4) mg/dl Total Bilirubin 0.4 (0.2-1) mg/dl AST 42 H (15-37) U/L ALT 25 (12-78) U/L Alkaline Phosphatase 67 (45-117) U/L Total Protein 6.7 (6.4-8.2) gm/dl Albumin 3.7 (3.4-5.0) gm/dl Globulin 3.0 (2.5-4.0) gm/dl Albumin/Globulin Ratio 1.2 (0.9-2) TSH 1.230 (0.300-4.500) uIu/ml Ethyl Alcohol mg/dL 207.7 H (0-3) mg/dl Imaging Data Radiologist's Impression: Radiology results as stated below per my review and the radiologist's interpretation: CT head/brain wo con CLINICAL HISTORY: 53 years-old Male presenting with gait instability. TECHNIQUE: Multidetector CT imaging of the head was performed without the use of intravenous contrast. IV contrast: None. One or more dose lowering techniques were used consistent with the principles of ALARA (as low as reasonably achievable), including automatic exposure control, mA or kV adjustment to individual patient size, and/or use of iterative reconstruction. COMPARISON: 07/12/2015. CT DOSE (mGy.cm): The estimated cumulative dose is 537.48 mGy.cm. FINDINGS: [employer] topogram: Unremarkable. Ventricles and sulci normal in size. No hemorrhage. Brain parenchyma normal in appearance with preserved robins-white differentiation. No acute territorial infarct. No mass effect or midline shift. No extra-axial fluid collection. Paranasal sinuses and mastoid air cells clear. Calvarium intact. IMPRESSION: 1. No acute intracranial abnormality. Electronically signed by: Aravind Herron M.D. 05/22/2019 9:56 PM XR chest 1V portable CLINICAL HISTORY: 53 years-old Male presenting with weakness, dizziness. TECHNIQUE: Portable upright AP view of the chest was obtained. COMPARISON: 07/12/2015. FINDINGS: Cardiac silhouette top normal in size. No focal opacity. No large effusion or pneumothorax. Osseous structures normal. Upper abdomen normal. IMPRESSION: 1. Borderline cardiomegaly. No other evidence of acute cardiopulmonary disease. Electronically signed by: Aravind Herron M.D. 05/22/2019 10:10 PM ECG Data Attestation: I personally reviewed and interpreted this ECG as follows: Indication: other (dizziness) Rate (beats per minute): 69 Rhythm: normal sinus Findings: + other (normal intervals, normal axis); no acute ischemic change Blood Pressure Blood Pressure Findings: Elevated blood pressure Blood Pressure Disposition: further management by hospitalist [facility] Narrative The patient is a 53 white male w/ PMHx HTN and tinnitus who presents to the ED w/ CC of constant dizziness beginning at 1900 this evening, about 2 hours ago. Patient was seen and evaluated the bedside. The patient was complaining some dizziness. The patient was stating that he was having some difficulty with ambulatory distance dysfunction. The patient is a fairly unremarkable exam but when asked to stand the patient does have a positive Romberg. [id number] is normal. Patient does have a smoking history as well as a history of hypertension. The patient reported completed. The patient's CT was negative. Given that the patient is not improved with symptomatic improvement and he does have risk factors for the possibility of posterior stroke I admitted the patient. The patient was given full dose aspirin and subsequently admitted to the medicine service. Pulmonary did asked the patient about alcohol use but he stated he had not had anything to drink since that morning. The patient does not appear clinically intoxicated but his gait instability could be related. I counseled the patient on smoking cessation for 5 minutes, was offered res ources as well as recommendations to help with smoking cessation, resources were provided, patient understood. Impression & Plan Vestibular dizziness, Encounter for smoking cessation counseling Discharge Plan Visit Data *Final* Discharge Date/Time: 05/23/19 02:00 Chief Complaint: Dizziness Stated Complaint: DIZZINESS, FEELS PRESSURE IN HEAD ED Provider: Ajay Alvarado Discharge Problem: Vestibular dizziness, Encounter for smoking cessation counseling Patient Disposition: Admitted As Inpatient Discharge Instructions Interventions: ED Discharge Assessment Last Done: 05/23/19 02:00 The scribe's documentation has been prepared under my direction and personally reviewed by me in its entirety. I confirm that the note above accurately reflects all work, treatment, procedures, and medical decision making performed by me.
[2019-05-24] MEDS: LEVALBUTEROL 1.25MG/0.5ML NEB INH SCH ×2 (01:50→07:07)
[2019-05-24] MEDS: IPRATROPIUM BROMIDE NEB SOLN 0.02% 2.5 ML VIAL INH SCH ×2 (01:50→07:05)
[2019-05-24] MEDS ORDERED: LISINOPRIL 5 MG TAB PO SCH (04:05)
[2019-05-24] MEDS: GABAPENTIN 600 MG TAB PO SCH ×2 (04:34→15:07)
--- NOTE | 2019-05-24 06:01 | Hospitalist Progress Note ---
Date of Service May 24, 2019 Subjective Made aware by RN of uncontrolled blood pressure. SBP 170-200s the last 24 hours. 60s. Patient asymptomatic as per RN. AP Hypertensive urgency Continue Coreg at current dose. Add lisinopril to regimen. Will relay to AM provider. Results & Data Vital Signs (Past 12 Hours) Vital Signs Temp Pulse Pulse Resp BP BP Pulse Ox 05/24/19 03:31 36.6 C 60 20 203/127 H 97 05/24/19 01:52 67 18 97 05/23/19 23:20 36.8 C 57 L 18 187/109 H 97 05/23/19 21:09 74 199/103 H 05/23/19 19:36 36.6 C 74 18 191/110 H 96 05/23/19 19:06 73 18 95 05/23/19 18:11 78
[2019-05-24] MEDS: MULTIVITAMIN TAB PO SCH (07:49)
[2019-05-24] MEDS: CARVEDILOL 6.25 MG TAB PO SCH ×2 (07:49→20:44)
[2019-05-24] MEDS: THIAMINE HCL 100 MG TAB PO SCH (07:50)
[2019-05-24] MEDS: DOXYCYCLINE HYCLATE 100 MG CAP PO SCH ×2 (07:50→20:45)
[2019-05-24] MEDS: ASPIRIN 81 MG ECTAB PO SCH (07:50)
[2019-05-24] MEDS: FOLIC ACID 1 MG TAB PO SCH (07:50)
--- NOTE | 2019-05-24 15:05 | Hospitalist Progress Note ---
Date of Service May 24, 2019 Assessment & Plan (1) Gait instability: Multifactorial : Alcoholism/ alcohol withdrawal Secondary to alcohol intoxication, No evidence of active withdrawal, Patient was treated with IV PRN Ativan, p.o. Neurontin protocol Gait, activities at baseline MRI/MRA of the brain: No evidence of stroke Alcohol intoxication/alcohol abuse History of longtime heavy alcohol abuse Had severe alcohol withdrawal in past Patient was treated with p.o. Neurontin alcohol withdrawal protocol Vitals remained stable, no evidence of active withdrawal noted Patient is counseled for seeking help for alcohol dependency Hypertensive urgency Resolved, blood pressure remains within normal limit Possible secondary to alcohol withdrawal Chronic diastolic heart failure No evidence of volume overload No hypoxia, no shortness of breath no dyspnea on exertion Thrombocytopenia, -Possible secondary to alcohol liver disease Patient is counseled numerous time for risk of liver disease, liver failure with excessive alcohol drinking Patient wants to consider quitting alcohol drinking by himself, not interested to go to any rehab Will DC antiplatelet/aspirin Bronchitis: Cough has improved, on empiric antibiotic with doxycycline complete 5 days course DVT prophylaxis. SCDs RE thrombocytopenia Full code Disposition: Possible discharge home tomorrow if remains medically stable Subjective Patient denies of any anxiety, no tremors, no agitation No evidence of any alcohol withdrawal Had long discussion regarding alcohol abuse, withdrawal symptoms Patient reports he quit drinking alcohol few months earlier, started to drink back again Never went to any alcohol rehab, not interested to go to a rehab present at bedside, reports patient is at his baseline Physical Exam Physical Exam: GENERAL: No sign of distress, HEENT: Sclera nonicteric, pink-purple bilateral equal reactive to light extraocular muscle intact Normal oral mucosa, neck: No JVD, no thyromegaly, trachea midline Lungs: Clear to auscultate, no wheeze or rales Cardiovascular: Regular S1 and S2, no murmur or gallop, no JVD, no lower extremity edema Abdomen: Soft, nontender, bowel sounds active, no hepatosplenomegaly Extremities: No rash or deformity, normal joint, Neuro: No focal neurological deficit, no dysarthria, no facial droop Psych: Alert awake oriented x3: Euthymic Skin: No rash LYMPH NODES: No cervical lymphadenopathy Results & Data Vital Signs (Past 12 Hours) Vital Signs Temp Pulse Pulse Resp BP BP Pulse Ox 05/24/19 13:11 36.9 C 66 18 154/89 H 97 07/12/19 12:57 57 L 05/24/19 07:16 36.6 C 59 L 20 181/116 H 176/112 H 96 05/24/19 07:07 60 14 98 05/24/19 03:31 36.6 C 60 20 203/127 H 97
[2019-05-24] MEDS ORDERED: ALBUT/IPRATROP 3MG/0.5MG NEB 3 ML VIAL NEB STA (23:40)
[2019-05-25] MEDS: GABAPENTIN 600 MG TAB PO SCH ×2 (00:02→11:56)
[2019-05-25] MEDS ORDERED: LISINOPRIL 5 MG TAB PO SCH (00:15)
[2019-05-25] MEDS: IPRATROPIUM BROMIDE NEB SOLN 0.02% 2.5 ML VIAL INH SCH ×2 (02:11→07:30)
[2019-05-25] MEDS: LEVALBUTEROL 1.25MG/0.5ML NEB INH SCH ×2 (02:11→07:30)
[2019-05-25 02:19] VITALS: O2SAT 98
[2019-05-25] MEDS ORDERED: CARVEDILOL 6.25 MG TAB PO SCH (04:15)
[2019-05-25 07:53] VITALS: TEMP 98.2
[2019-05-25] MEDS ORDERED: XOPENEX/ATROVENT 1.25mg/0.5MG NEB COMBO NEB SCH (08:00)
[2019-05-25] MEDS: DOXYCYCLINE HYCLATE 100 MG CAP PO SCH (08:15)
[2019-05-25] MEDS: FOLIC ACID 1 MG TAB PO SCH (08:15)
[2019-05-25] MEDS: THIAMINE HCL 100 MG TAB PO SCH (08:15)
[2019-05-25] MEDS: MULTIVITAMIN TAB PO SCH (08:16)
[2019-05-25] MEDS ORDERED: LISINOPRIL 10 MG TAB PO STA (11:24)
--- NOTE | 2019-05-25 12:09 | Hospitalist Progress Note ---
Date of Service May 25, 2019 Assessment & Plan (1) Alcohol intoxication: Presented with alcohol intoxication with gait disturbance, alcohol level was 207 History of long-term alcohol abuse with prior history of withdrawal symptoms in the past Never been to rehab, not interested to go to one now Once to quit alcohol drinking on its own It was treated with Neurontin p.o. alcohol withdrawal protocol, PRN IV Ativan Did not go through any severe withdrawal symptoms during hospital stay Patient is counseled numerous times regarding severe consequences of excessive alcohol abuse, alcohol dependency-can lead to liver failure, multiorgan failure- Patient understands Willing to seek support group, AAA Patient's was present at bedside, updated, in agreement with above plan (2) Gait instability: : Alcoholism/ alcohol withdrawal Secondary to alcohol intoxication, No evidence of active withdrawal, Patient was treated with IV PRN Ativan, p.o. Neurontin protocol Gait, activities at baseline MRI/MRA of the brain: No evidence of stroke Alcohol intoxication/alcohol abuse History of longtime heavy alcohol abuse Had severe alcohol withdrawal in past Patient was treated with p.o. Neurontin alcohol withdrawal protocol Vitals remained stable, no evidence of active withdrawal noted Patient is counseled for seeking help for alcohol dependency Hypertensive urgency Patient is on Coreg 3.125 twice daily Added lisinopril 10 mg daily blood pressure remains persistently elevated Lisinopril dose increased to 20 mg daily, with appropriate control of blood pressure Patient will need close follow-up with family physician Dr. Plasencia in clinic for follow-ups and adjustment of BP meds if indicated Chronic diastolic heart failure No evidence of volume overload No hypoxia, no shortness of breath no dyspnea on exertion Added ROCK inhibitor, lisinopril 20 mg daily Thrombocytopenia, -Possible secondary to alcohol liver disease Patient is counseled numerous time for risk of liver disease, liver failure with excessive alcohol drinking Patient wants to consider quitting alcohol drinking by himself, not interested to go to any rehab Avoid aspirin antiplatelets Bronchitis: Cough has improved, on empiric antibiotic with doxycycline Day#2 complete 5 days course DVT prophylaxis. SCDs RE thrombocytopenia Full code Disposition: Stable to be discharged home today Subjective Does not have any gait disturbance, ambulating independently without any balance issue, no tremors, no sign symptoms of alcohol withdrawal Blood pressure was elevated earlier this morning denies of any headache or shortness of breath Lisinopril dose increased to 20 mg daily Given extra dose of 10 mg p.o. now Repeat BP improved to 148/84 Patient is counseled for low salt diet , quitting ETOH verbalized understanding, stable to be discharged home today Physical Exam Physical Exam: GENERAL: No sign of distress, HEENT: Sclera nonicteric, pink-purple bilateral equal reactive to light extraocular muscle intact Normal oral mucosa, neck: No JVD, no thyromegaly, trachea midline Lungs: Clear to auscultate, no wheeze or rales Cardiovascular: Regular S1 and S2, no murmur or gallop, no JVD, no lower extremity edema Abdomen: Soft, nontender, bowel sounds active, no hepatosplenomegaly Extremities: No rash or deformity, normal joint, Neuro: No focal neurological deficit, no dysarthria, no facial droop Psych: Alert awake oriented x3: Euthymic Skin: No rash LYMPH NODES: No cervical lymphadenopathy Results & Data Vital Signs (Past 12 Hours) Vital Signs Temp Pulse Pulse Resp BP BP Pulse Ox 05/25/19 12:06 148/84 H 05/25/19 12:05 73 69 147/94 H 147/94 H 05/25/19 11:43 164/111 H 05/25/19 10:47 36.8 C 61 16 167/100 H 198/102 H 98 05/25/19 07:52 36.8 C 61 16 167/100 H 98 05/25/19 07:33 70 18 98 05/25/19 05:08 60 167/99 H 05/25/19 04:05 36.6 C 62 18 192/102 H 98 05/25/19 02:11 56 L 16 98 05/25/19 00:33 62 05/25/19 00:31 198/102 H (1) Alcohol intoxication Complication of substance-induced condition: with unspecified complication Qualified Code(s): F10.929 - Alcohol use, unspecified with intoxication, unspecified
--- NOTE | 2019-05-25 12:24 | Discharge Summary ---
Date of Service May 25, 2019 Admission HPI Per Admitting Provider History obtained from patient, family, and records. Medical history significant for chronic diastolic heart failure (EF 60%, TTE 2011 ), hypertension, hyperlipidemia, asthma as per records, alcohol abuse, chronic anemia baseline hemoglobin of 13. Recent confinement April 2011 for chest pain. ACS ruled out with normal coronaries on cardiac cath. Yesterday patient noted unsteady gait symptoms without dizziness. Patient having trouble with balance and focusing. Head pressure complaints. No chest pain, no S OB. Had to call off work because of illness. Junky cough symptoms for a few weeks now secondary to sinusitis symptoms. No fever, no chills, no aspiration. Patient admits to not being compliant with home aspirin Rx. Patient given aspirin upon arrival at the ER. 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 alcohol abuse/alcohol intoxication/withdrawal/HYPERTENSIVE URGENCY Discharge Exam GENERAL: No sign of distress, HEENT: Sclera nonicteric, pink-purple bilateral equal reactive to light extraocular muscle intact Normal oral mucosa, neck: No JVD, no thyromegaly, trachea midline Lungs: Clear to auscultate, no wheeze or rales Cardiovascular: Regular S1 and S2, no murmur or gallop, no JVD, no lower extremity edema Abdomen: Soft, nontender, bowel sounds active, no hepatosplenomegaly Extremities: No rash or deformity, normal joint, Neuro: No focal neurological deficit, no dysarthria, no facial droop Psych: Alert awake oriented x3: Euthymic Skin: No rash LYMPH NODES: No cervical lymphadenopathy Discharge Data Allergies Allergy/AdvReac Type Severity Reaction Status Date / Time morphine AdvReac Intermediate ITCHING Verified 05/22/19 22:56 Consultations 05/22/19 22:52 ED Decision to Admit Stat 05/23/19 02:31 Consult Case Management - Discharge Planning Routine Consult Case Management - Discharge Planning Routine Ordered Studies 05/22/19 21:25 CT head/brain wo con Stat 05/22/19 23:03 MR angio head wo con Urgent MR brain wo con Urgent Hospital Course (1) Alcohol intoxication: Presented with alcohol intoxication with gait disturbance, alcohol level was 207 History of long-term alcohol abuse with prior history of withdrawal symptoms in the past Never been to rehab, not interested to go to one now Once to quit alcohol drinking on its own It was treated with Neurontin p.o. alcohol withdrawal protocol, PRN IV Ativan Did not go through any severe withdrawal symptoms during hospital stay Patient is counseled numerous times regarding severe consequences of excessive alcohol abuse, alcohol dependency-can lead to liver failure, multiorgan failure- Patient understands Willing to seek support group, AAA Patient's was present at bedside, updated, in agreement with above plan (2) Gait instability: : Alcoholism/ alcohol withdrawal Secondary to alcohol intoxication, No evidence of active withdrawal, Patient was treated with IV PRN Ativan, p.o. Neurontin protocol Gait, activities at baseline MRI/MRA of the brain: No evidence of stroke Alcohol intoxication/alcohol abuse History of longtime heavy alcohol abuse Had severe alcohol withdrawal in past Patient was treated with p.o. Neurontin alcohol withdrawal protocol Vitals remained stable, no evidence of active withdrawal noted Patient is counseled for seeking help for alcohol dependency Hypertensive urgency Patient is on Coreg 3.125 twice daily Added lisinopril 10 mg daily blood pressure remains persistently elevated Lisinopril dose increased to 20 mg daily, with appropriate control of blood pressure Patient will need close follow-up with family physician Dr. Plasencia in clinic for follow-ups and adjustment of BP meds if indicated Chronic diastolic heart failure No evidence of volume overload No hypoxia, no shortness of breath no dyspnea on exertion Added ROCK inhibitor, lisinopril 20 mg daily Thrombocytopenia, -Possible secondary to alcohol liver disease Patient is counseled numerous time for risk of liver disease, liver failure with excessive alcohol drinking Patient wants to consider quitting alcohol drinking by himself, not interested to go to any rehab Avoid aspirin antiplatelets Bronchitis: Cough has improved, on empiric antibiotic with doxycycline Day#2 complete 5 days course DVT prophylaxis. SCDs RE thrombocytopenia Full code Disposition: Stable to be discharged home today Total Time Total Time Spent Total Time Spent (In Minutes): Approximate 45 minutes Total Time Includes: Examination of the Patient, Discharge Planning and Medication Reconciliation Discharge Plan Discharge Items Patient Disposition: Home - Self-Care Reason For Visit: ETOH WITHDRAWL,IMABALANCE Discharge Diagnosis: CHRONIC ALCOHOL ABUSE/ALCOHOL INTOXICATION/WITHDRAWAL/HYPERTENSIVE URGENCY Discharge Goals: Decrease discomfort, Improve function and Therapeutic intervention Activity: Resume your previous activity Non-emergency contact: Primary Care Provider Call non-emergency contact if: you have any medication questions Follow-up/Referrals: Toro Lao MD [Primary Care Provider] - Diet: Regular Addtl Provider Instructions: HOSPITAL FOLLOW UP WITH DR LAO IN A WEEK , OFFICE CAN CALL WITH APPOINTMENT Please seek health for your long-term chronic alcohol dependency With continued heavy alcohol drinking serious consequences of liver failure, stroke, renal failure, heart failure leading to can happen within few year New medications: 1. Lisinopril 20 mg by mouth daily for hypertension 2. Folic acid 1 tablet dailyfor alcohol withdrawal/chronic alcohol abuse 3. Thiamine 100 mg by mouth dailyfor alcohol withdrawal/chronic alcohol use abuse 4. Doxycycline 100 mg twice daily - 2 more days for bronchitis 5. Nebulizer solution: Albuterol sulfate use with nebulizer machine every 8 hours as needed for shortness of breath/wheeze You have high blood pressure, Need close follow-up with Dr. Plasencia for blood pressure management Avoid addition of salt and your food which can elevate your blood pressure Prescriptions: New thiamine HCl (vitamin B1) [Vitamin B-1] 100 mg Tablet 100 mg PO QAM 30 Days Qty: 30 RF: 3 folic acid 1 mg Tablet 1 mg PO QAM 30 Days Qty: 30 RF: 3 lisinopril 20 mg tablet 20 mg PO DAILY Qty: 30 RF: 3 albuterol sulfate 2.5 mg /3 mL (0.083 %) solution for nebulization 1.25 mg INH Q8H PRN (Reason: bronchospasm) 30 Days Qty: 90 RF: 3 doxycycline hyclate 100 mg tablet 100 mg PO BID 2 Days Qty: 4 RF: 0 Continued carvedilol 6.25 mg Tablet 6.25 mg PO BID RF: 0 Stand-Alone Forms: [facility], Work/School Release (Inpt) Discharge Orders: Discharge Order (Routine); Ordered 05/25/19 Ordered By: Pamella Caldwell Admission Data Admit Date/Time: 05/23/19 01:31 Attending Provider: Pamella Caldwell Admit Provider: Joel Treviño Primary Care Provider: Toro Lao Other Providers: Paulette Parish ; Joel Treviño Service: Medical Other Interventions: Discharge Summary Assessment (RN) Last Done: 05/25/19 10:47
[2019-05-25 12:31] VITALS: PULSE 73
[2019-05-25 12:32] VITALS: BP 148/84
[2019-05-26] MEDS ORDERED: GABAPENTIN 600 MG TAB PO SCH (12:00)
== END 2019-05-25 12:15 | disposition home or self-care (01) | DRG 202 ==
LOC: ED 20:23 → SUATTDRO 05-23 01:31 → 2W 05-23 01:31

== ENCOUNTER 2021-09-24 09:44 | Inpatient (IN) ==
[2021-09-24 10:35] LABS: Hematocrit (blood only) 38.5 % (42-52); Hemoglobin 12.9 g/dL (14.0-18.0); Mean Corpuscular Hemoglobin 31.4 pg (25-34); Mean Corpuscular Hgb Conc 33.5 g/dL (32-36); Mean Corpuscular Volume 93.7 fL (80-100); RDW Coefficient of Variation 12.9 % (11.5-14.5); RDW Standard Deviation 44.7 fL (36.4-46.3); Red Blood Count 4.11 M/uL (4.7-6.1); White Blood Count 4.27 K/uL (4.8-10.8)
--- NOTE | 2021-09-24 10:40 | Emergency Department Note ---
Impression & Plan Pneumonia due to 2019 novel coronavirus, Hypoxia, Leukopenia, Thrombocytopenia, Hypertension ED Provider Note NAME: SAMANTHA GUERRERO AGE: 55 SEX: M : 1965 ARRIVES VIA: Walk-In INFORMANT: Patient ED PROVIDER(S): Montana Han DO CHIEF COMPLAINT: Covid positive and low pulse ox HPI: Patient is a 55-year-old male who presents to the ER who is Covid positive about 9 days ago. He is not vaccinated. Symptoms started with cough and congestion but denies any fevers. He has no shortness of breath. No belly pain but did have some nausea which has abated. No dysuria, urgency, or frequency. Patient notes that he felt like he was sick and got a vomit and checked the pulse ox and it was down to 83 %. ROS: See above HPI for pertinent positives & negatives. A total of 10 systems reviewed and were otherwise negative. PAST MEDICAL HISTORY:See Below PAST SURGICAL HISTORY:See Below FAMILY HISTORY:See Below SOCIAL HISTORY:See Below HOME MEDICATIONS:See Below ALLERGIES:See Below VITALS:See Below PHYSICAL EXAMINATION: GENERAL: Sitting up in bed, alert, morbidly obese, disheveled EYE EXAM: normal conjunctiva. PERRL and EOM's grossly intact. OROPHARYNX: no exudate, no erythema, lips, buccal mucosa, and tongue normal and mucous membranes are moist NECK: supple, no nuchal rigidity, no adenopathy, non-tender LUNGS: Clear to auscultation. Normal chest wall mechanics HEART: no murmurs, S1 normal and S2 normal ABDOMEN: abdomen soft, non-tender, normo-active bowel sounds, no masses, no rebound or guarding. UPPER EXTREMITIES: upper extremities are grossly normal. LOWER EXTREMITIES: No pitting edema. NEURO EXAM: Normal sensorium, cranial nerves II-XII grossly intact, normal speech, no gross weakness of arms, no gross weakness of legs. MEDICAL DECISION MAKING: Patient is a 55-year-old male who presents ER for above-stated complaint. He was referred in for further evaluation. He is Covid positive. IV was established blood work was obtained. Labs show mild leukopenia 4.2 thousand. No significant anemia. BMP along with LFTs bilirubin and lipase was unremarkable. Patient is Covid test was positive. Chest x-ray with bilateral infiltrates. He was given steroids fluids and updated at bedside. Is placed on nasal cannula. He was discussed with the hospitalist admitted for further work- up of his Covid pneumonia and hypoxia. Triage Nursing notes reviewed. Limited review of prior medical records performed Vital Signs: reviewed and remarkable for hypoxia Differential diagnosis: Differential diagnoses includes but is not limited to pneumonia, bronchitis, [employer]EL[employer] D/Asthma exacerbation, pneumothorax, pulmonary embolism, congestive heart failure, acute coronary syndrome ER treatment provided: See below Diagnostics interpreted by me: ECG: Sinus rhythm rate 76 Normal axis No PVCs QTC 436 Cardiac Monitoring: An order was placed for continuous cardiac monitoring. The monitor shows a rate of 79 with sinus rhythm. Laboratory studies: As stated above and show below. Imaging studies: Chest x-ray shows bilateral infiltrates Consultation(s): Discussed with hospitalist for further evaluation Procedures: none Critical Care: None Past Med/Surg History Medical History Alcohol abuse Hypertension Surgical History No significant past surgical history S/P cardiac cath 07/2020-normal coronary arteries Family History Father Coronary heart disease Mother Coronary heart disease Social History (Updated 09/24/21 @ 13:51 by RICARDO Ferraro) Smoking Status: Never smoker Tobacco Type: Smokeless Tobacco (Dip or Chew) Hx Alcohol Use: Yes Alcohol type: hard liquor Alcohol type Comment: 1 bottle whiskey/2 days Hx Substance Use: No Preferred Language: Ukrainian Communication Ability: Effective Almond Pan Finisher Required: No Beliefs That Will Affect Care: None Current Living Situation: Spouse Feels Safe at Home: Yes Assistive Devices: None Allergies Allergies Allergy/AdvReac Type Severity Reaction Status Date / Time morphine AdvReac Intermediate ITCHING Verified 09/24/21 12:04 Home Meds Home Medications Medication Instructions Recorded Confirmed folic acid 1 mg tablet 1 mg PO DAILY 07/19/20 09/24/21 thiamine HCl (vitamin B1) 100 mg 100 mg PO DAILY 07/19/20 09/24/21 tablet carvedilol 12.5 mg tablet 12.5 mg PO BID 09/17/21 09/24/21 losartan 50 mg tablet 50 mg PO DAILY 09/17/21 09/24/21 Results & Data (ED) Vital Signs Vital Signs - 24 hr 09/24/21:56 09/24/21 10:25 09/24/21 11:40 Temperature 37.4 C Temperature Source Temporal Artery Scan Pulse Rate 85 Pulse Rate [Left Finger] 83 Respiratory Rate 26 H 18 Blood Pressure 166/79 H Blood Pressure [Left Arm] 142/76 H Blood Pressure Mean 108 Blood Pressure Mean [Left Arm] 98 Pulse Oximetry 93 93 98 Oxygen Delivery Method Room Air Room Air Room Air Sepsis Recent Fever Within 48 Hours Yes Sepsis New/Unexplained Change in Mental Status No Sepsis Action Taken by Nursing No Action Required Laboratory Data Result diagrams: 09/24/21 10:25 09/24/21 10:25 Lab Results 09/24/21 09/24/21 Range/Units 10:25 10:25 WBC 4.27 L (4.8-10.8) K/uL RBC 4.11 L (4.7-6.1) M/uL Hgb 12.9 L (14.0-18.0) g/dL Hct 38.5 L (42-52) % MCV 93.7 (80-100) fL MCH 31.4 (25-34) pg MCHC 33.5 (32-36) g/dL RDW Std Deviation 44.7 (36.4-46.3) fL RDW Coeff of Shayy 12.9 (11.5-14.5) % Plt Count 89 L (130-400) K/uL MPV 9.1 (7.4-10.4) fL Immature Gran % (Auto) 0.7 % Neut % (Auto) 72.6 % Lymph % (Auto) 14.1 % [place] % (Auto) 12.4 % Eos % (Auto) 0.0 % Baso % (Auto) 0.2 % Neut # (Auto) 3.10 (1.4-6.5) K/uL Lymph # (Auto) 0.60 L (1.2-3.4) K/uL [place] # (Auto) 0.53 (0.11-0.59) K/uL Eos # (Auto) 0.00 (0-0.5) K/uL Baso # (Auto) 0.01 (0-0.2) K/uL Immature Gran # (Auto) 0.03 H (0.00-0.02) K/uL Platelet Estimate Decreased L (Normal) Sodium 132 L (136-145) mmol/L Potassium 4.0 (3.5-5.1) mmol/L Chloride 101 (98-107) mmol/L Carbon Dioxide 21 (21-32) mmol/L Anion Gap 10.0 (3-11) BUN 10 (7-18) mg/dl Creatinine 0.83 (0.6-1.4) mg/dl Est Cr Clr Drug Dosing 151.5 ml/min Est GFR ( Amer) 115.6 ml/min Est GFR (Non-Af Amer) 99.8 ml/min BUN/Creatinine Ratio 12.0 (10-20) Glucose 118 H (70-99) mg/dl Calcium 8.2 L (8.5-10.1) mg/dl Total Bilirubin 0.2 (0.2-1) mg/dl AST 35 (15-37) U/L ALT 34 (12-78) U/L Alkaline Phosphatase 64 (45-117) U/L Troponin I < 0.015 (0-0.045) ng/ml Total Protein 6.5 (6.4-8.2) gm/dl Albumin 2.6 L (3.4-5.0) gm/dl Globulin 3.9 (2.5-4.0) gm/dl Albumin/Globulin Ratio 0.7 L (0.9-2) Lipase 172 (73-393) U/L Administered Medications Discontinued Medications Dexamethasone Sodium Phosphate (DexamethasonePf 10 Mg/Ml Vial) 10 mg IV NOW ONE Stop: 09/24/21 11:29 Last Admin: 09/24/21 12:18 Dose: 10 mg Documented by: [id number] Imaging Data Radiologist's Impression: Chest X-Ray 09/24/21 10:18 SINGLE VIEW CHEST CLINICAL HISTORY: Atypical chest pain. Covid FINDINGS: An AP, portable, upright chest radiograph is compared to study dated 09/17/2021. Correlation is made with chest CT dated 07/19/2020. The examination is degraded by portable technique and apical lordotic positioning. The heart is top normal for projection noting atherosclerotic calcification of the thoracic aorta. There is mild multifocal patchy airspace consolidation. No large pleural effusion or pneumothorax is seen. The bony thorax is grossly intact. IMPRESSION: Mild multifocal airspace consolidation is consistent with the reported history of viral pneumonia. Radiographic follow-up to resolution is recommended. ACT 112: Negative or not required by law. Electronically signed by: Sergio Lopes M.D. 09/24/2021 11:24 AM Discharge Plan Visit Data Chief Complaint: Shortness of Breath/Dyspnea Stated Complaint: SOB, COVID + ED Provider: Montana Han Discharge Problem: Pneumonia due to 2019 novel coronavirus, Hypoxia, Leukopenia, Thrombocytopenia, Hypertension Patient Disposition: Admitted As Inpatient Discharge Instructions Interventions: ED Discharge Assessment Last Done: 09/24/21 13:00
[2021-09-24 10:57] LABS: Alanine Aminotransferase 34 U/L (12-78); Albumin Level 2.6 gm/dl (3.4-5.0); Aspartate Aminotransferase 35 U/L (15-37); Blood Urea Nitrogen 10 mg/dl (7-18); Calcium 8.2 mg/dl (8.5-10.1); Carbon Dioxide 21 mmol/L (21-32); Chloride 101 mmol/L (98-107); Creatinine Clr Calc Pharmacy 151.5 ml/min; Est GFR (African American) 115.6 ml/min; Est GFR (Non-African American) 99.8 ml/min; Glucose 118 mg/dl (70-99); Lipase 172 U/L (73-393); Sodium 132 mmol/L (136-145)
[2021-09-24 11:01] LABS: Basophils # (auto) 0.01 K/uL (0-0.2); Basophils % (auto) 0.2 %; Immature Granulocytes # (auto) 0.03 K/uL (0.00-0.02); Immature Granulocytes % (auto) 0.7 %; Lymphocytes % (auto) 14.1 %; Mean Platelet Volume 9.1 fL (7.4-10.4); Monocytes # (auto) 0.53 K/uL (0.11-0.59); Monocytes % (auto) 12.4 %; Neutrophils % (auto) 72.6 %; Platelet Count 89 K/uL (130-400); Platelet Estimate Decreased (Normal)
[2021-09-24 11:02] LABS: Albumin Globulin Ratio 0.7 (0.9-2); Alkaline Phosphatase 64 U/L (45-117); Bilirubin,Total 0.2 mg/dl (0.2-1); Globulin 3.9 gm/dl (2.5-4.0); Total Protein 6.5 gm/dl (6.4-8.2); Troponin I < 0.015 ng/ml (0-0.045)
--- NOTE | 2021-09-24 11:25 | XRay Report ---
SINGLE VIEW CHEST CLINICAL HISTORY: Atypical chest pain. Covid FINDINGS: An AP, portable, upright chest radiograph is compared to study dated 09/17/2021. Correlation is made with chest CT dated 07/19/2020. The examination is degraded by portable technique and apical l ordotic positioning. The heart is top normal for projection noting atherosclerotic calcification of t he thoracic aorta. There is mild multifocal patchy airspace consolidation. No large pleural effusion or pneumothorax is seen. The bony thorax is grossly intact. IMPRESSION: Mild multifocal airspace consolidation is consistent with the reported history of viral p neumonia. Radiographic follow-up to resolution is recommended. ACT 112: Negative or not required by law. Electronically signed by: Sergio Lopes M.D. 09/24/2021 11:24 AM
[2021-09-24] MEDS ORDERED: dexAMETHasone**PF** 10 MG/ML VIAL IV ONE (11:28)
[2021-09-24] MEDS ORDERED: GABAPENTIN 1200MG ALCOHOL WITHDRAWAL LOAD PO STA (13:37)
--- NOTE | 2021-09-24 13:49 | Electrocardiogram Report ---
Test Reason : Blood Pressure : / mmHG Vent. Rate : 076 BPM Atrial Rate : 076 BPM P-R Int : 156 ms QRS Dur : 096 ms QT Int : 388 ms P-R-T Axes : 036 059 064 degrees QTc Int : 436 ms Normal sinus rhythm Normal ECG When compared with ECG of 17-SEP-2021 23:25, No significant change was found Confirmed by Sonu Francis ([id number]) on 09/24/2021 1:49:30 PM Referred By: Confirmed By:Sonu Francis
--- NOTE | 2021-09-24 13:52 | History & Physical Report ---
Date of Service September 24, 2021 Assessment & Plan (1) Hypoxia: (2) Pneumonia due to 2019 novel coronavirus: Plan: -Admit to telemetry -Patient presenting from home with reports of worsening shortness of breath and cough x 10 days. Seen in the ED on 09/17 and diagnosed with COVID-19. Patient is unvaccinated. During ED visit on 09/17, patient received IV Solu-Medrol and nebulizer treatment and was discharged home with COVID-19 kit including home pulse oximeter. Patient reports he was getting readings in the low 80s today. -In the ED, patient is saturating in the low 90s at rest and was 88% with ambulation -CXR shows multifocal pneumonia consistent with COVID-19 -S/p dexamethasone 10 mg IV in the ED, continue with dexamethasone 6 mg IV daily -Start remdesivir -CRP 6.82, procalcitonin 0.07 -Supportive care with flutter valve, incentive spirometer, nebs, encourage self proning (3) Hypertensive urgency: Plan: -Highest BP reading 215/125 despite use of home medications this morning -Alcohol withdrawal likely contributing -Continue home carvedilol and losartan -Give hydralazine 10 mg IV now, continue with as needed dosing (4) Alcohol abuse: Plan: -Patient reports drinking a bottle of whiskey every 2 days -Currently exhibiting signs of withdrawal with anxiety, tachycardia, hypertension -Start alcohol withdrawal protocol with gabapentin (5) Thrombocytopenia: Plan: -Platelets 89K -COVID-19 and/or chronic alcohol use likely contributing -No signs of bleeding -Monitor CBC (6) Morbid obesity: Plan: -BMI 47.4 (7) Tobacco use: Plan: -Patient reports using 1 can of smokeless tobacco per day -Counseled regarding tobacco cessation (8) DVT prophylaxis: Plan: -SCDs for now due to thrombocytopenia Admission and Anticipated Discharge Date Admission Date: September 24, 2021 History of Present Illness Chief Complaint: Cough, shortness of breath Primary Care Provider: Toro Reyes MD 55-year-old male with PMH HTN, alcohol abuse, and other problems listed below who presents the ED for evaluation of cough and shortness of breath. Patient seen in the ED on 09/17 for similar symptoms and was diagnosed with COVID-19. Patient is not vaccinated. During ED visit, patient received nebulizer treatment, IVF, IV Solu-Medrol. He had improvement in his symptoms and was discharged home. Patient reports worsening shortness of breath and cough since that time. Cough has been productive for a white sputum. Was also discharged home with a pulse oximeter and patient reports readings were in the low 80s today. Patient denies chest pain. No lightheadedness, dizziness, diaphoresis, syncopal events. Reports a poor appetite however denies abdominal pain, nausea, vomiting, diarrhea. Has been having generalized body aches however no fever or chills. Denies urinary symptoms. In the ED, patient is saturating in the low 90s at rest and with ambulation patient desaturated to 88%. CXR shows multifocal pneumonia consistent with COVID-19 pneumonia. Patient received IV dexamethasone 10 mg. Allergies Allergy/AdvReac Type Severity Reaction Status Date / Time morphine AdvReac Intermediate ITCHING Verified 09/24/21 12:04 Home Medications Medication Instructions Recorded Confirmed Type folic acid 1 mg tablet 1 mg PO DAILY 07/19/20 09/24/21 History thiamine HCl (vitamin B1) 100 mg 100 mg PO DAILY 07/19/20 09/24/21 History tablet carvedilol 12.5 mg tablet 12.5 mg PO BID 09/17/21 09/24/21 History losartan 50 mg tablet 50 mg PO DAILY 09/17/21 09/24/21 History Past Med/Surg History Medical History Alcohol abuse Hypertension Surgical History No significant past surgical history S/P cardiac cath 07/2020-normal coronary arteries Family History Father Coronary heart disease Mother Coronary heart disease Social History Smoking Status: Unknown if ever smoked Tobacco Type: Smokeless Tobacco (Dip or Chew) Do You Dip or Chew Tobacco: Yes; Hx Alcohol Use: Yes Alcohol type: hard liquor Alcohol type Comment: 1 bottle whiskey/2 days Hx Substance Use: No Preferred Language: Portuguese Communication Ability: Effective Producer Required: No Beliefs That Will Affect Care: None Current Living Situation: Spouse Feels Safe at Home: Yes Assistive Devices: None Review of Systems Review of Systems: ROS per HPI, all other systems reviewed and negative Physical Exam Constitutional: WD/WN, vitals as above + obese Eyes: PERRL, conjunctivae normal, anicteric sclerae ENMT: external ear and nose normal, oropharynx normal Respiratory: normal respiratory effort; no respiratory distress Auscultation: + wheezes (Bilateral, expiratory) Scattered coarse breath sounds Cardiovascular: Rate/Rhythm: regular rate and regular rhythm Vessels: normal peripheral pulses Extremities: no edema Gastrointestinal (Abdomen): normal bowel sounds, soft, nontender, no hepatosplenomegaly Musculoskeletal: no cyanosis or clubbing, extremities motor strength 5/5 Skin: no rashes, warm and dry Neurologic: PERRL, EOMI, accommodation nl, no face palsy, no dysarthria Psychiatric: A+Ox3, euthymic affect Results & Data Results & Data ([facility]) Vital Signs (Past 12 Hours) Vital Signs Temp Pulse Pulse Resp BP BP Pulse Ox 09/24/21 12:34 76 22 215/125 H 92 09/24/21 11:40 83 18 142/76 H 98 09/24/21 10:25 93 09/24/21 09:56 37.4 C 85 26 H 166/79 H 93 Laboratory Results Short CBC 09/24/21 Range/Units 10:25 WBC 4.27 L (4.8-10.8) K/uL Hgb 12.9 L (14.0-18.0) g/dL Hct 38.5 L (42-52) % Plt Count 89 L (130-400) K/uL BMP 09/24/21 10:25 Sodium 132 L Potassium 4.0 Chloride 101 Carbon Dioxide 21 BUN 10 Creatinine 0.83 Glucose 118 H Calcium 8.2 L Cardiac Enzymes 09/24/21 Range/Units 10:25 Troponin I < 0.015 (0-0.045) ng/ml Liver Function 09/24/21 Range/Units 10:25 Total Bilirubin 0.2 (0.2-1) mg/dl AST 35 (15-37) U/L ALT 34 (12-78) U/L Alkaline Phosphatase 64 (45-117) U/L Albumin 2.6 L (3.4-5.0) gm/dl Diagnostic Findings Chest X-Ray 09/24/21 10:18 SINGLE VIEW CHEST CLINICAL HISTORY: Atypical chest pain. Covid FINDINGS: An AP, portable, upright chest radiograph is compared to study dated 09/17/2021. Correlation is made with chest CT dated 07/19/2020. The examination is degraded by portable technique and apical lordotic positioning. The heart is top normal for projection noting atherosclerotic calcification of the thoracic aorta. There is mild multifocal patchy airspace consolidation. No large pleural effusion or pneumothorax is seen. The bony thorax is grossly intact. IMPRESSION: Mild multifocal airspace consolidation is consistent with the reported history of viral pneumonia. Radiographic follow-up to resolution is recommended. ACT 112: Negative or not required by law. Electronically signed by: Sergio Lopes M.D. 09/24/2021 11:24 AM Code Status & VTE Plan Code Status Patient is a full code as per my discussion with him. VTE Prophylaxis Plan VTE Prophylaxis will be ordered: Yes Supervising Physician Co-Signing Physician Notes I have seen and examined the patient and have discussed the case with the provider above. I agree with the assessment and plan as stated. Obese man with h/o heavy alcohol use at risk for progression to severe disease. Intermittent hypoxia prompting admission. Cont iwth decardon and remdesivir as above. Patient reported feeling sick to his stomach earlier today with an acute change overall this morning compared to earlier in his course of illness. He was tremulous, hypertensive and tachycardic on arrival to the floor and was given Ativan 1mg IV out of concern for alcohol withdrawal with some improvement. My physical exam reflects that above. Cont plan as above. DO Florian
[2021-09-24] MEDS ORDERED: LORazepam 1 MG/2 ML VIAL IV STA (13:56)
[2021-09-24] MEDS ORDERED: REMDESIVIR 200 MG in SODIUM CHLORIDE 0.9% 210 ML IV ONE (14:00)
[2021-09-24] MEDS ORDERED: LORazepam 2 MG/4 ML VIAL ONE (14:02)
[2021-09-24] MEDS ORDERED: ATIVAN IV ALCOHOL WITHDRAWL IV PRN (14:11)
[2021-09-24] MEDS ORDERED: LORazepam 3 MG/6 ML VIAL IV PRN (14:11)
[2021-09-24] MEDS ORDERED: LORazepam 2 MG/4 ML VIAL IV PRN (14:11)
[2021-09-24] MEDS ORDERED: ENOXAPARIN INJ 40 MG/0.4 ML SYR SQ SCH (14:11)
[2021-09-24] MEDS ORDERED: LORazepam 1 MG/2 ML VIAL IV PRN (14:11)
[2021-09-24] MEDS ORDERED: ALBUT/IPRATROP 3MG/0.5MG NEB 3 ML VIAL NEB PRN (14:11)
[2021-09-24] MEDS ORDERED: ACETAMINOPHEN 325 MG TAB PO PRN (14:11)
[2021-09-24] MEDS ORDERED: hydrALAZINE HCL 20 MG/ML VIAL IV PRN (14:23)
[2021-09-24] MEDS ORDERED: GABAPENTIN 600 MG TAB PO ONE (15:00)
[2021-09-24] MEDS ORDERED: hydrALAZINE HCL 20 MG/ML VIAL IV STA (15:30)
[2021-09-24] MEDS ORDERED: SODIUM CHLORIDE 0.9% 10ML FLUSH IV SCH (16:00)
[2021-09-24] MEDS: carvediloL 12.5 MG TAB PO SCH (20:11)
[2021-09-24] MEDS: GABAPENTIN 600 MG TAB PO SCH (20:12)
[2021-09-25 04:12] VITALS: O2SAT 92
[2021-09-25] MEDS: GABAPENTIN 600 MG TAB PO SCH (06:00)
[2021-09-25 07:23] LABS: Hematocrit (blood only) 40.1 % (42-52); Hemoglobin 13.4 g/dL (14.0-18.0); Mean Corpuscular Hemoglobin 31.6 pg (25-34); Mean Corpuscular Hgb Conc 33.4 g/dL (32-36); Mean Corpuscular Volume 94.6 fL (80-100); Mean Platelet Volume 9.6 fL (7.4-10.4); Platelet Count 125 K/uL (130-400); RDW Coefficient of Variation 13.1 % (11.5-14.5); RDW Standard Deviation 45.3 fL (36.4-46.3); Red Blood Count 4.24 M/uL (4.7-6.1)
[2021-09-25 07:42] LABS: BUN Creatinine Ratio 16.5 (10-20); Calcium 8.5 mg/dl (8.5-10.1); Est GFR (African American) 90.7 ml/min; Est GFR (Non-African American) 78.3 ml/min; Potassium 4.5 mmol/L (3.5-5.1)
[2021-09-25] MEDS: carvediloL 12.5 MG TAB PO SCH (08:35)
[2021-09-25] MEDS ORDERED: THIAMINE HCL 100 MG TAB PO SCH (09:00)
[2021-09-25] MEDS ORDERED: LOSARTAN POTASSIUM 50 MG TAB PO SCH (09:00)
[2021-09-25] MEDS ORDERED: dexAMETHasone 6 MG in SYRINGE 0 ML IV SCH (09:00)
[2021-09-25] MEDS ORDERED: FOLIC ACID 1 MG TAB PO SCH (09:00)
--- NOTE | 2021-09-25 09:00 | Discharge Summary ---
Date of Service September 25, 2021 Admission HPI Per Admitting Provider 55-year-old male with PMH HTN, alcohol abuse, and other problems listed below who presents the ED for evaluation of cough and shortness of breath. Patient seen in the ED on 09/17 for similar symptoms and was diagnosed with COVID-19. Patient is not vaccinated. During ED visit, patient received nebulizer treatment, IVF, IV Solu-Medrol. He had improvement in his symptoms and was discharged home. Patient reports worsening shortness of breath and cough since that time. Cough has been productive for a white sputum. Was also discharged home with a pulse oximeter and patient reports readings were in the low 80s today. Patient denies chest pain. No lightheadedness, dizziness, diaphoresis, syncopal events. Reports a poor appetite however denies abdominal pain, nausea, vomiting, diarrhea. Has been having generalized body aches however no fever or chills. Denies urinary symptoms. In the ED, patient is saturating in the low 90s at rest and with ambulation patient desaturated to 88%. CXR shows multifoc al pneumonia consistent with COVID-19 pneumonia. Patient received IV dexamethasone 10 mg. Admission Exam Per Admitting Provider Constitutional: WD/WN, vitals as above + obese Eyes: PERRL, conjunctivae normal, anicteric sclerae ENMT: external ear and nose normal, oropharynx normal Respiratory: normal respiratory effort; no respiratory distress Auscultation: + wheezes (Bilateral, expiratory) Scattered coarse breath sounds Cardiovascular: Rate/Rhythm: regular rate and regular rhythm Vessels: normal peripheral pulses Extremities: no edema Gastrointestinal (Abdomen): normal bowel sounds, soft, nontender, no hepatosplenomegaly Musculoskeletal: no cyanosis or clubbing, extremities motor strength 5/5 Skin: no rashes, warm and dry Neurologic: PERRL, EOMI, accommodation nl, no face palsy, no dysarthria Psychiatric: A+Ox3, euthymic affect Principal Diagnosis Covid pneumonia Hypertensive urgency Alcohol abuse Tobacco use Morbid obesity Discharge Exam CONSTITUTIONAL: obese, vitals as above, generally well-appearing EYES: normal conjunctivae, no scleral icterus ENT: external ear and nose normal NECK: trachea midline RESPIRATORY: clear to auscultation bilaterally, no crackles, rales or wheezes, normal respiratory effort CARDIOVASCULAR: regular rate and rhythm, S1 and 2 heard without murmurs, gallops or rubs, no JVD, no peripheral edema CHEST: inspection of chest was normal GASTROINTESTINAL: soft, nontender, ND MUSCULOSKELETAL: strength 5/5 throughout, head is normocephalic and atraumatic SKIN: warm and dry NEUROLOGIC: CN 2-12 grossly intact, no sensory deficit, normal cognition, normal speech, no tremor PSYCHIATRIC: alert cooperative and oriented to person, place and time. Discharge Data Allergies Allergy/AdvReac Type Severity Reaction Status Date / Time morphine AdvReac Intermediate ITCHING Verified 09/28/21 14:42 Consultations 09/24/21 11:28 ED Decision to Admit Stat Ordered Studies Laboratory Results WBC 2.90 K/uL (4.8-10.8) L 09/25/21 06:53 RBC 4.24 M/uL (4.7-6.1) L 09/25/21 06:53 Hgb 13.4 g/dL (14.0-18.0) L 09/25/21 06:53 Hct 40.1 % (42-52) L 09/25/21 06:53 MCV 94.6 fL (80-100) 09/25/21 06:53 MCH 31.6 pg (25-34) 09/25/21 06:53 MCHC 33.4 g/dL (32-36) 09/25/21 06:53 RDW Std Deviation 45.3 fL (36.4-46.3) 09/25/21 06:53 RDW Coeff of Shayy 13.1 % (11.5-14.5) 09/25/21 06:53 Plt Count 125 K/uL (130-400) L 09/25/21 06:53 MPV 9.6 fL (7.4-10.4) 09/25/21 06:53 Immature Gran % (Auto) 0.7 % 09/24/21 10:25 Neut % (Auto) 72.6 % 09/24/21 10:25 Lymph % (Auto) 14.1 % 09/24/21 10:25 [place] % (Auto) 12.4 % 09/24/21 10:25 Eos % (Auto) 0.0 % 09/24/21 10:25 Baso % (Auto) 0.2 % 09/24/21 10:25 Neut # (Auto) 3.10 K/uL (1.4-6.5) 09/24/21 10:25 Lymph # (Auto) 0.60 K/uL (1.2-3.4) L 09/24/21 10:25 [place] # (Auto) 0.53 K/uL (0.11-0.59) 09/24/21 10:25 Eos # (Auto) 0.00 K/uL (0-0.5) 09/24/21 10:25 Baso # (Auto) 0.01 K/uL (0-0.2) 09/24/21 10:25 Immature Gran # (Auto) 0.03 K/uL (0.00-0.02) H 09/24/21 10:25 Platelet Estimate Decreased (Normal) L 09/24/21 10:25 Sodium 134 mmol/L (136-145) L 09/25/21 06:53 Potassium 4.5 mmol/L (3.5-5.1) 09/25/21 06:53 Chloride 103 mmol/L (98-107) 09/25/21 06:53 Carbon Dioxide 26 mmol/L (21-32) 09/25/21 06:53 Anion Gap 5.0 (3-11) 09/25/21 06:53 BUN 18 mg/dl (7-18) D 09/25/21 06:53 Creatinine 1.07 mg/dl (0.6-1.4) 09/25/21 06:53 Est Cr Clr Drug Dosing 116.0 ml/min 09/25/21 06:53 Est GFR ( Amer) 90.7 ml/min 09/25/21 06:53 Est GFR (Non-Af Amer) 78.3 ml/min 09/25/21 06:53 BUN/Creatinine Ratio 16.5 (10-20) 09/25/21 06:53 Glucose 146 mg/dl (70-99) H 09/25/21 06:53 Calcium 8.5 mg/dl (8.5-10.1) 09/25/21 06:53 Total Bilirubin 0.2 mg/dl (0.2-1) 09/24/21 10:25 AST 35 U/L (15-37) 09/24/21 10:25 ALT 34 U/L (12-78) 09/24/21 10:25 Alkaline Phosphatase 64 U/L (45-117) 09/24/21 10:25 Troponin I < 0.015 ng/ml (0-0.045) 09/24/21 10:25 C-Reactive Protein 6.82 mg/dl (0-0.29) H 09/24/21 14:39 Total Protein 6.5 gm/dl (6.4-8.2) 09/24/21 10:25 Albumin 2.6 gm/dl (3.4-5.0) L 09/24/21 10:25 Globulin 3.9 gm/dl (2.5-4.0) 09/24/21 10:25 Albumin/Globulin Ratio 0.7 (0.9-2) L 09/24/21 10:25 Lipase 172 U/L (73-393) 09/24/21 10:25 Procalcitonin 0.07 ng/ml (0-0.5) 09/24/21 14:39 COVID-19 Eval Order Covid19 at [facility] 09/24/21 12:28 SARS-CoV-2 (PCR) POSITIVE (Negative) A* 09/24/21 12:28 Impressions Chest X-Ray 09/24/21 10:18 SINGLE VIEW CHEST CLINICAL HISTORY: Atypical chest pain. Covid FINDINGS: An AP, portable, upright chest radiograph is compared to study dated 09/17/2021. Correlation is made with chest CT dated 07/19/2020. The examination is degraded by portable technique and apical lordotic positioning. The heart is top normal for projection noting atherosclerotic calcification of the thoracic aorta. There is mild multifocal patchy airspace consolidation. No large pleural effusion or pneumothorax is seen. The bony thorax is grossly intact. IMPRESSION: Mild multifocal airspace consolidation is consistent with the reported history of viral pneumonia. Radiographic follow-up to resolution is recommended. ACT 112: Negative or not required by law. Electronically signed by: Sergio Lopes M.D. 09/24/2021 11:24 AM Hospital Course (1) Hypoxia: (2) Pneumonia due to 2019 novel coronavirus: -Admit to telemetry -Patient presenting from home with reports of worsening shortness of breath and cough x 10 days. Seen in the ED on 09/17 and diagnosed with COVID-19. Patient is unvaccinated. During ED visit on 09/17, patient received IV Solu-Medrol and nebulizer treatment and was discharged home with COVID-19 kit including home pulse oximeter. Patient reports he was getting readings in the low 80s at home. In the ER he was oxygenating low 90s at rest and 88% with ambulation. CXR shows multifocal pneumonia consistent with COVID-19. S/p dexamethasone 10 mg IV in the ED, he was treated with daily dexamethasone 6 mg IV. Remdesivir was started. His hypoxia resolved overnight, he reported a resolution of some n ausea, which he had felt prior to coming in, and he was eager to go home. Sent home with a short course of decadron to complet. (3) Hypertensive urgency: -Highest BP reading 215/125 despite use of home medications this morning, Alcohol withdrawal thought to be possibly contributing vs stress of hospitalization vs use of snuff Hydralazine was given inpatient and he was continued on home carvedilol and losartan with BP imporved into te 150s at time of discharge. (4) Alcohol abuse: Patient reports drinking a bottle of whiskey every 2 days Some signs of withdrawal with anxiety, tachycardia, hypertension Alcohol withdrawal protocol with scheduled gabapentin and PRN Ativan was utilized. (5) Thrombocytopenia: -Platelets 89K -COVID-19 and/or chronic alcohol use likely contributing but he has had thrombocytopenia in the past, also -No signs of bleeding -Monitor CBC (6) Morbid obesity: -BMI 47.4 putting him at higher risk of complications of covid-19 (7) Tobacco use: -Patient reports using 1 can of smokeless tobacco per day -Counseled regarding tobacco cessation (8) Alcohol abuse with withdrawal: Patient reports drinking a bottle of whiskey every 2 days Some signs of withdrawal with anxiety, tachycardia, hypertension Alcohol withdrawal protocol with scheduled gabapentin and PRN Ativan was utilized. Total Time Total Time Spent Total Time Spent (In Minutes): 60 Discharge Plan Discharge Items Patient Disposition: Home - Self-Care Reason For Visit: COVID 19 PNEUMONIA Discharge Diagnosis: Covid pneumonia Hypertensive urgency Alcohol abuse Tobacco use Morbid obesity Condition on Discharge: Good Activity: Resume your previous activity Non-emergency contact: Primary Care Provider Call non-emergency contact if: you have any medication questions and your symptoms worsen Follow-up/Referrals: Toro Reeys MD [Primary Care Provider] - Diet: Low Sodium (2gm) Addtl Attending Provider Instructions: Please take all medications as instructed on discharge list below. You are being given a short course of Decadron to take. It is recommended that you follow-up with your primary care doctor within 1 week of discharge from the hospital to ensure you are continuing to improve. Mucinex is being given as needed for help with congestion. It is strongly recommended that you cut down/quit using alcohol and cut down/quit using snuff as this is terrible for your health. Please remain on home isolation for 10 days beyond symptom onset, and after this follow all public health guidance for appropriate social distancing and masking when around others. You were found to have a pneumonia and should have a repeat chest x-ray in 4 weeks time to ensure complete resolution. This may be ordered by your primary care doctor. Please consider covid and flu vaccination. You are safe to have both and this is encouraged as soon as possible. It was a pleasure taking care of you! Please call if you have any questions or problems. You can reach a [facility] hospitalist on duty at [facility] 24 hours a day by calling [phone]. Take care of yourself. Luz Du, DO [facility]ist Pending Studies at Discharge: No Stand-Alone Forms: My [facility] Medications and DC Order Prescriptions: New guaifenesin [Mucinex] 600 mg tablet extended release 12hr 600 mg PO BID PRN (Reason: congestion) Qty: 30 RF: 0 Continued thiamine HCl (vitamin B1) 100 mg tablet 100 mg PO DAILY RF: 0 folic acid 1 mg tablet 1 mg PO DAILY RF: 0 losartan 50 mg tablet 50 mg PO DAILY RF: 0 carvedilol 12.5 mg tablet 12.5 mg PO BID RF: 0 No Action dexamethasone [Decadron] 6 mg tablet 6 mg PO QAM RF: 0 Discharge Orders: Discharge Order (Routine); Ordered 09/25/21 Ordered By: Luz Du Admission Data Admit Date/Time: 09/24/21 11:45 Attending Provider: Luz Du Admit Provider: Luz Du Primary Care Provider: Toro Reyes Other Providers: Luz Du Other Interventions: Discharge Summary Assessment (RN) Last Done: 09/25/21 13:22
[2021-09-25] MEDS ORDERED: REMDESIVIR 100 MG in SODIUM CHLORIDE 0.9% 230 ML IV SCH (12:00)
[2021-09-25 12:42] VITALS: PULSE 70; TEMP 97.7
[2021-09-25] MEDS ORDERED: SODIUM CHLORIDE 0.9% 10ML FLUSH IV SCH (13:00)
[2021-09-25 13:24] VITALS: BP 91/38
[2021-09-25] MEDS ORDERED: GABAPENTIN 600 MG TAB PO SCH (14:00)
[2021-09-26] MEDS ORDERED: GABAPENTIN 600 MG TAB PO SCH (18:00)
[2021-09-28] MEDS ORDERED: GABAPENTIN 600 MG TAB PO SCH (06:00)
== END 2021-09-25 16:06 | disposition home or self-care (01) | DRG 177 ==
LOC: ED 09:44 → 2S 11:45
DX: D69.6 Thrombocytopenia, unspecified; I16.0 Hypertensive urgency; J12.82 Pneumonia due to coronavirus disease 2019; U07.1 COVID-19; F17.290 Nicotine dependence, other tobacco product, uncomplicated; F10.131 Alcohol abuse with withdrawal delirium; R09.02 Hypoxemia; Z88.5 Allergy status to narcotic agent; E66.01 Morbid (severe) obesity due to excess calories; Z68.42 Body mass index [BMI] 45.0-49.9, adult; I10 Essential (primary) hypertension

== ENCOUNTER 2021-09-28 13:38 | Inpatient (IN) ==
[2021-09-28 14:37] LABS: Basophils # (auto) 0.01 K/uL (0-0.2); Basophils % (auto) 0.1 %; Eosinophils # (auto) 0.01 K/uL (0-0.5); Eosinophils % (auto) 0.1 %; Hematocrit (blood only) 41.8 % (42-52); Hemoglobin 14.1 g/dL (14.0-18.0); Immature Granulocytes # (auto) 0.13 K/uL (0.00-0.02); Immature Granulocytes % (auto) 1.2 %; Lymphocytes # (auto) 0.56 K/uL (1.2-3.4); Lymphocytes % (auto) 5.2 %; Mean Corpuscular Hemoglobin 31.7 pg (25-34); Mean Corpuscular Hgb Conc 33.7 g/dL (32-36); Mean Corpuscular Volume 93.9 fL (80-100); Mean Platelet Volume 9.3 fL (7.4-10.4); Monocytes # (auto) 0.57 K/uL (0.11-0.59); Monocytes % (auto) 5.3 %; Neutrophils # (auto) 9.57 K/uL (1.4-6.5); Neutrophils % (auto) 88.1 %; Platelet Count 218 K/uL (130-400); RDW Coefficient of Variation 13.2 % (11.5-14.5); RDW Standard Deviation 45.5 fL (36.4-46.3); Red Blood Count 4.45 M/uL (4.7-6.1); White Blood Count 10.85 K/uL (4.8-10.8)
[2021-09-28 14:42] LABS: Oxygen Saturation VBG 72.9 %; pH VBG 7.4 (7.36-7.41)
--- NOTE | 2021-09-28 14:49 | XRay Report ---
SINGLE VIEW CHEST CLINICAL HISTORY: Dyspnea. Covid FINDINGS: An AP, portable, upright chest radiograph is compared to study dated 09/24/2021. The examin ation is degraded by portable technique and apical lordotic positioning. The heart is top normal for projection noting atherosclerotic calcification of the thoracic aorta. The pulmonary vasculature is n oncongested. There is multifocal airspace consolidation. This has modestly increased as compared to 1 11/24/2020. No large pleural effusion or pneumothorax is identified. The bony thorax is grossly intact . IMPRESSION: Multifocal airspace consolidation is consistent with the reported history of a viral pneu monia. This has modestly worsened as compared to 09/24/2021. Continued follow-up to resolution is rec ommended. ACT 112: Negative or not required by law. Electronically signed by: Sergio Lopes M.D. 09/28/2021 2:48 PM
[2021-09-28 14:50] LABS: INR 0.9 (0.9-1.1); Partial Thromboplastin Time 25.1 Seconds (21.0-31.0); Prothrombin Time 9.3 Seconds (9.0-12.0)
[2021-09-28 14:59] LABS: Albumin Level 2.8 gm/dl (3.4-5.0); BUN Creatinine Ratio 15.9 (10-20); Blood Urea Nitrogen 12 mg/dl (7-18); Calcium 8.4 mg/dl (8.5-10.1); Carbon Dioxide 20 mmol/L (21-32); Chloride 107 mmol/L (98-107); Creatinine Clr Calc Pharmacy 163.2 ml/min; Est GFR (African American) 119.2 ml/min; Est GFR (Non-African American) 102.9 ml/min; Glucose 160 mg/dl (70-99); Magnesium 2.2 mg/dl (1.8-2.4); Potassium 4.1 mmol/L (3.5-5.1); Sodium 137 mmol/L (136-145)
[2021-09-28 15:04] LABS: Alanine Aminotransferase 23 U/L (12-78); Albumin Globulin Ratio 0.7 (0.9-2); Alkaline Phosphatase 66 U/L (45-117); Aspartate Aminotransferase 19 U/L (15-37); Bilirubin,Total 0.3 mg/dl (0.2-1); Globulin 4.3 gm/dl (2.5-4.0); NT Pro B Type Natriuretic Pept 156 pg/ml (0-900); Total Protein 7.1 gm/dl (6.4-8.2); Troponin I < 0.015 ng/ml (0-0.045)
[2021-09-28] MEDS ORDERED: OPTIRAY 320 125ml IV ONE (15:53)
--- NOTE | 2021-09-28 16:04 | CT Scan Report ---
CT angio chest PE protocol CLINICAL HISTORY: ro PE Covid pneumonia. Dyspnea. TECHNIQUE: Multidetector row helical CT of the chest was performed. Coronal and sagittal reformations were obtained. Automated dose lowering techniques and/or adjustment according to patient size were u tilized for this exam. Comparison: Comparison is made to CT thorax 07/19/2020 FINDINGS: Lungs and pleura: Multifocal groundglass opacities are seen. Heart and pericardium: Cardiomegaly is seen with biatrial enlargement. Reflux of contrast is seen int o the inferior vena cava. Vessels: No evidence of pulmonary embolism. Pulmonary trunk measures 36 mm in diameter. Mediastinum and mauri: Subcentimeter lymph nodes are seen. Chest wall and lower neck: Unremarkable. Abdomen: Unremarkable. Bones: Unremarkable. IMPRESSION: 1. No evidence of pulmonary embolism. 2. Cardiomegaly, pulmonary hypertension, and heart failure. 3. Multifocal groundglass opacities compatible with history of viral pneumonia. ACT 112: Negative or not required by law. Electronically signed by: Kalpesh Davies M.D. 09/28/2021 4:03 PM
[2021-09-28] MEDS ORDERED: GABAPENTIN 1200MG ALCOHOL WITHDRAWAL LOAD PO STA (17:10)
[2021-09-28] MEDS ORDERED: ALBUT/IPRATROP 3MG/0.5MG NEB 3 ML VIAL NEB STA (18:05)
--- NOTE | 2021-09-28 18:05 | Emergency Department Note ---
History of Present Illness General Chief Complaint: Respiratory Problems Stated Complaint: OXYGEN LEVEL HAS DROPPED TO 85,HAS COVID,PNUEMONIA Time Seen by Provider: 09/28/21 14:09 History of Present Illness Provider Complaint: shortness of breath and cough Onset (ago): day(s) (2) Consistency/Duration: + progressively worsening Maximum Pain Intensity: 0 Relieved By: + oxygen, + rest and + upright position Exacerbated By: + lying flat, + exertion and + coughing Context: + recent illness (Diagnosed with COVID-19 on September 17, 2021) Associated symptoms: + cough, + wheezing and + sputum production; no hemoptysis, no nausea/vomiting, no syncope or no abdominal pain Treatment prior to arrival: oxygen Home Medications Medication Instructions Recorded Confirmed Type folic acid 1 mg tablet 1 mg PO DAILY 07/19/20 09/28/21 History thiamine HCl (vitamin B1) 100 mg 100 mg PO DAILY 07/19/20 09/28/21 History tablet carvedilol 12.5 mg tablet 12.5 mg PO BID 09/17/21 09/28/21 History losartan 50 mg tablet 50 mg PO DAILY 09/17/21 09/28/21 History guaifenesin 600 mg tablet, 600 mg PO BID PRN #30 tab 09/25/21 09/28/21 Rx extended release 12 hr (Mucinex) dexamethasone 6 mg tablet 6 mg PO QAM 09/28/21 09/28/21 History (Decadron) Allergies Allergy/AdvReac Type Severity Reaction Status Date / Time morphine AdvReac Intermediate ITCHING Verified 09/28/21 14:42 Past Med/Surg History Medical History Alcohol abuse Hypertension Surgical History No significant past surgical history S/P cardiac cath 07/2020-normal coronary arteries Family History Father Coronary heart disease Mother Coronary heart disease Social History Smoking Status: Never smoker Tobacco Type: Smokeless Tobacco (Dip or Chew) Hx Alcohol Use: Yes Alcohol type: hard liquor Alcohol type Comment: 1 bottle whiskey/2 days Hx Substance Use: No Preferred Language: Slovenian Communication Ability: Effective Energy Project Manager Required: No Beliefs That Will Affect Care: None Current Living Situation: Spouse Feels Safe at Home: Yes Assistive Devices: None Review of Systems A total of 10 systems reviewed and were otherwise negative Physical Exam Vital Signs: Vital Signs - 24 hr 09/28/21 13:51 09/28/21 15:32 09/28/21 15:51 Temperature 36.9 C Temperature Source Temporal Artery Sc an Pulse Rate 80 Pulse Rate [Left F niall] 72 Pulse Rhythm [Left Finger] Regular Pulse Strength [Le ft Finger] Normal Respiratory Rate 22 18 Respiratory Effort / Characteristics Non-Labored Non-Labored Sponta neous Respiratory Depth Normal Normal Blood Pressure 181/99 H Blood Pressure [Le ft Arm] 152/76 H Blood Pressure Nasreen n 126 Blood Pressure Nasreen n [Left Arm] 101 Blood Pressure Pos ition [Left Arm] Sitting Pulse Oximetry 86 L 94 98 Oxygen Delivery Me thod Room Air Nasal Cannula Oxygen Flow Rate 2 Sepsis Recent Feve r Within 48 Hours No Sepsis New/Unexpla ined Change in Men danielle Status No Sepsis Action Take n by Nursing No Action Required 09/28/21 16:40 09/28/21 17:40 09/28/21 17:59 Temperature Temperature Source Pulse Rate Pulse Rate [Left F niall] 70 71 Pulse Rhythm [Left Finger] Pulse Strength [Le ft Finger] Respiratory Rate 20 18 Respiratory Effort / Characteristics Respiratory Depth Blood Pressure Blood Pressure [Le ft Arm] 161/76 H 178/105 H Blood Pressure Nasreen n Blood Pressure Nasreen n [Left Arm] 104 129 Blood Pressure Pos ition [Left Arm] Sitting Pulse Oximetry 98 88 L 94 Oxygen Delivery Me thod Nasal Cannula Nasal Cannula Nasal Cannula Oxygen Flow Rate 2 2 4 Sepsis Recent Feve r Within 48 Hours Sepsis New/Unexpla ined Change in Men danielle Status Sepsis Action Take n by Nursing 09/28/21 18:20 09/28/21 18:40 Temperature Temperature Source Pulse Rate Pulse Rate [Left F niall] 76 69 Pulse Rhythm [Left Finger] Pulse Strength [Le ft Finger] Respiratory Rate 20 16 Respiratory Effort / Characteristics Spontaneous Respiratory Depth Blood Pressure 186/98 H Blood Pressure [Le ft Arm] 186/98 H Blood Pressure Nasreen n 127 Blood Pressure Nasreen n [Left Arm] 127 Blood Pressure Pos ition [Left Arm] Sitting Pulse Oximetry 91 92 Oxygen Delivery Me thod Nasal Cannula Nasal Cannula Oxygen Flow Rate 4 4 Sepsis Recent Feve r Within 48 Hours Sepsis New/Unexpla ined Change in Men danielle Status Sepsis Action Take n by Nursing Physical Exam: Physical Exam GENERAL: He is oriented to person, place, and time. He appears well-developed and well-nourished. He does not appear distressed. HENT: Exam performed. - Head: Normocephalic and atraumatic. - Right Ear: External ear normal. No mastoid tenderness. - Left Ear: External ear normal. No mastoid tenderness. - Mouth/Throat: The oropharynx is clear and moist. No trismus in the jaw. No dental abscesses or uvula swelling. No oropharyngeal exudate or tonsillar abscesses. EYES: Conjunctivae and EOM are normal. Pupils are equal, round, and reactive to light. Right eye exhibits no discharge. Left eye exhibits no discharge. No scleral icterus. NECK: Normal range of motion. Neck supple. No JVD present. No spinous process tenderness present. No carotid bruit present. No rigidity. No tracheal deviation and normal range of motion present. No Brudzinski's sign and no Kernig's sign noted. CV: Normal rate, regular rhythm, normal heart sounds and intact distal pulses. There is no peripheral edema. Palpable radial pulses bue. PULM/CHEST: Diffuse rhonchi bilaterally. - Chest Wall: He exhibits no tenderness. ABD: The abdomen is soft and obese Bowel sounds are normal. He has no distension. No mass is present. There is no tenderness. There is no rebound, no guarding, no Travis's sign and no tenderness at McBurney's point. Rovsig negative. MUSC/SKEL: Normal range of motion. There is no peripheral edema, tenderness or deformity. LYMPH: No cervical adenopathy. NEURO: He is alert and oriented to person, place, and time. He has normal stren gth. No cranial nerve deficit or sensory deficit. Coordination and gait normal. GCS eye subscore is 4. GCS verbal subscore is 5. GCS motor subscore is 6. Cerebellar tests wnl. SKIN: Skin is warm and dry. He is not diaphoretic. PSYCH: He has a normal mood and affect. Behavior is normal. Judgment and thought content normal. Course Course 1409: The patient was evaluated in room C11. A complete history and physical exam was performed Cardiac monitoring: An order was placed for continuous cardiac monitoring. The monitor shows a rate of 60 with sinusrhythm. Patient was found to be hypoxic on room air at 83%. Supplemental oxygen was applied via nasal cannula which improved patient's oxygen saturation. EMR reviewed.Patient was admitted to the hospital from September 24 to September 25, 2021 for COVID-19 pneumonia. He was discharged with Decadron. 1615: Vital signs stable on supplemental oxygen via nasal cannula. Imaging shows a worsening multifocal pneumonia. No PE. Labs are within normal limits. Will admit the patient to the [facility] hospitalist team. 1745: Patient was evaluated by Dr. Du [facility] hospitalist team. She states she spoke with the patient she would like to discharge the patient with home oxygen. She states she is working with Roxie cobos to discharge patient home with oxygen. 1807: Roxie was able to get authorization for home oxygen and we will plan on discharging the patient home based off the recommendation of the [facility] hospitalist team. 1815: Patient is now stating that he would like to be admitted to the hospital does not feel comfortable going home after discussing with hospitalist team and case filler. Patient will be admitted to the [facility] hospitalist team Dr. Du was notified and she states she will admit the patient. Administered Medications Hydralazine HCl (Hydralazine Hcl 20 Mg/Ml Vial) 10 mg IV Q8H PRN PRN Reason: HTN Stop: 10/28/21 18:14 Last Admin: 09/28/21 18:25 Dose: 10 mg Documented by: [id number] Discontinued Medications Albuterol (Albut/Ipratrop 3mg/0.5mg Neb 3 Ml Vial) 3 ml NEB NOW STA Stop: 09/28/21 18:06 Last Admin: 09/28/21 18:19 Dose: 3 ml Documented by: [id number] Hydralazine HCl (Hydralazine Hcl 20 Mg/Ml Vial) 10 mg IV NOW STA Stop: 09/28/21 18:15 Last Admin: 09/28/21 19:09 Dose: Not Given Documented by: [id number] Ioversol (Optiray 320 125ml) 120 ml IV ONCE ONE Stop: 09/28/21 15:54 Last Admin: 09/28/21 15:54 Dose: 120 ml Documented by: [id number] Medical Decision Making Laboratory Data Result diagrams: 09/28/21 14:30 09/28/21 14:30 Lab Results 09/28/21 09/28/21 09/28/21 Range/Units 14:30 14:30 14:30 WBC 10.85 H (4.8-10.8) K/uL RBC 4.45 L (4.7-6.1) M/uL Hgb 14.1 (14.0-18.0) g/dL Hct 41.8 L (42-52) % MCV 93.9 (80-100) fL MCH 31.7 (25-34) pg MCHC 33.7 (32-36) g/dL RDW Std Deviation 45.5 (36.4-46.3) fL RDW Coeff of Shayy 13.2 (11.5-14.5) % Plt Count 218 (130-400) K/uL MPV 9.3 (7.4-10.4) fL Immature Gran % (Auto) 1.2 % Neut % (Auto) 88.1 % Lymph % (Auto) 5.2 % [place] % (Auto) 5.3 % Eos % (Auto) 0.1 % Baso % (Auto) 0.1 % Neut # (Auto) 9.57 H (1.4-6.5) K/uL Lymph # (Auto) 0.56 L (1.2-3.4) K/uL [place] # (Auto) 0.57 (0.11-0.59) K/uL Eos # (Auto) 0.01 (0-0.5) K/uL Baso # (Auto) 0.01 (0-0.2) K/uL Immature Gran # (Auto) 0.13 H (0.00-0.02) K/uL PT 9.3 (9.0-12.0) Seconds INR 0.9 (0.9-1.1) APTT 25.1 (21.0-31.0) Seconds PTT Ratio 1.0 VBG pH (7.36-7.41) VBG pCO2 (38-50) mmHg VBG pO2 mmHg VBG HCO3 mmol/L VBG O2 Saturation % VBG Base Excess mEq/L Barometric Pressure mm/Hg Sodium 137 (136-145) mmol/L Potassium 4.1 (3.5-5.1) mmol/L Chloride 107 (98-107) mmol/L Carbon Dioxide 20 L (21-32) mmol/L Anion Gap 10.0 (3-11) BUN 12 (7-18) mg/dl Creatinine 0.77 (0.6-1.4) mg/dl Est Cr Clr Drug Dosing 163.2 ml/min Est GFR ( Amer) 119.2 ml/min Est GFR (Non-Af Amer) 102.9 ml/min BUN/Creatinine Ratio 15.9 (10-20) Glucose 160 H (70-99) mg/dl Lactate (0.4-2.0) mmol/L Calcium 8.4 L (8.5-10.1) mg/dl Magnesium 2.2 (1.8-2.4) mg/dl Total Bilirubin 0.3 (0.2-1) mg/dl AST 19 (15-37) U/L ALT 23 (12-78) U/L Alkaline Phosphatase 66 (45-117) U/L Troponin I < 0.015 (0-0.045) ng/ml C-Reactive Protein (0-0.29) mg/dl NT-Pro-B Natriuret Pep 156 (0-900) pg/ml Total Protein 7.1 (6.4-8.2) gm/dl Albumin 2.8 L (3.4-5.0) gm/dl Globulin 4.3 H (2.5-4.0) gm/dl Albumin/Globulin Ratio 0.7 L (0.9-2) Procalcitonin (0-0.5) ng/ml 09/28/21 09/28/21 09/28/21 Range/Units 14:30 14:30 14:30 WBC (4.8-10.8) K/uL RBC (4.7-6.1) M/uL Hgb (14.0-18.0) g/dL Hct (42-52) % MCV (80-100) fL MCH (25-34) pg MCHC (32-36) g/dL RDW Std Deviation (36.4-46.3) fL RDW Coeff of Shayy (11.5-14.5) % Plt Count (130-400) K/uL MPV (7.4-10.4) fL Immature Gran % (Auto) % Neut % (Auto) % Lymph % (Auto) % [place] % (Auto) % Eos % (Auto) % Baso % (Auto) % Neut # (Auto) (1.4-6.5) K/uL Lymph # (Auto) (1.2-3.4) K/uL [place] # (Auto) (0.11-0.59) K/uL Eos # (Auto) (0-0.5) K/uL Baso # (Auto) (0-0.2) K/uL Immature Gran # (Auto) (0.00-0.02) K/uL PT (9.0-12.0) Seconds INR (0.9-1.1) APTT (21.0-31.0) Seconds PTT Ratio VBG pH 7.40 (7.36-7.41) VBG pCO2 42 (38-50) mmHg VBG pO2 40 mmHg VBG HCO3 25 mmol/L VBG O2 Saturation 72.9 % VBG Base Excess 0 mEq/L Barometric Pressure 735.3 mm/Hg Sodium (136-145) mmol/L Potassium (3.5-5.1) mmol/L Chloride (98-107) mmol/L Carbon Dioxide (21-32) mmol/L Anion Gap (3-11) BUN (7-18) mg/dl Creatinine (0.6-1.4) mg/dl Est Cr Clr Drug Dosing ml/min Est GFR ( Amer) ml/min Est GFR (Non-Af Amer) ml/min BUN/Creatinine Ratio (10-20) Glucose (70-99) mg/dl Lactate 1.7 (0.4-2.0) mmol/L Calcium (8.5-10.1) mg/dl Magnesium (1.8-2.4) mg/dl Total Bilirubin (0.2-1) mg/dl AST (15-37) U/L ALT (12-78) U/L Alkaline Phosphatase (45-117) U/L Troponin I (0-0.045) ng/ml C-Reactive Protein 2.23 H (0-0.29) mg/dl NT-Pro-B Natriuret Pep (0-900) pg/ml Total Protein (6.4-8.2) gm/dl Albumin (3.4-5.0) gm/dl Globulin (2.5-4.0) gm/dl Albumin/Globulin Ratio (0.9-2) Procalcitonin (0-0.5) ng/ml 09/28/21 Range/Units 14:40 WBC (4.8-10.8) K/uL RBC (4.7-6.1) M/uL Hgb (14.0-18.0) g/dL Hct (42-52) % MCV (80-100) fL MCH (25-34) pg MCHC (32-36) g/dL RDW Std Deviation (36.4-46.3) fL RDW Coeff of Shayy (11.5-14.5) % Plt Count (130-400) K/uL MPV (7.4-10.4) fL Immature Gran % (Auto) % Neut % (Auto) % Lymph % (Auto) % [place] % (Auto) % Eos % (Auto) % Baso % (Auto) % Neut # (Auto) (1.4-6.5) K/uL Lymph # (Auto) (1.2-3.4) K/uL [place] # (Auto) (0.11-0.59) K/uL Eos # (Auto) (0-0.5) K/uL Baso # (Auto) (0-0.2) K/uL Immature Gran # (Auto) (0.00-0.02) K/uL PT (9.0-12.0) Seconds INR (0.9-1.1) APTT (21.0-31.0) Seconds PTT Ratio VBG pH (7.36-7.41) VBG pCO2 (38-50) mmHg VBG pO2 mmHg VBG HCO3 mmol/L VBG O2 Saturation % VBG Base Excess mEq/L Barometric Pressure mm/Hg Sodium (136-145) mmol/L Potassium (3.5-5.1) mmol/L Chloride (98-107) mmol/L Carbon Dioxide (21-32) mmol/L Anion Gap (3-11) BUN (7-18) mg/dl Creatinine (0.6-1.4) mg/dl Est Cr Clr Drug Dosing ml/min Est GFR ( Amer) ml/min Est GFR (Non-Af Amer) ml/min BUN/Creatinine Ratio (10-20) Glucose (70-99) mg/dl Lactate (0.4-2.0) mmol/L Calcium (8.5-10.1) mg/dl Magnesium (1.8-2.4) mg/dl Total Bilirubin (0.2-1) mg/dl AST (15-37) U/L ALT (12-78) U/L Alkaline Phosphatase (45-117) U/L Troponin I (0-0.045) ng/ml C-Reactive Protein (0-0.29) mg/dl NT-Pro-B Natriuret Pep (0-900) pg/ml Total Protein (6.4-8.2) gm/dl Albumin (3.4-5.0) gm/dl Globulin (2.5-4.0) gm/dl Albumin/Globulin Ratio (0.9-2) Procalcitonin < 0.05 (0-0.5) ng/ml Imaging Data Radiologist's Impression: Chest X-Ray 09/28/21 13:55 SINGLE VIEW CHEST CLINICAL HISTORY: Dyspnea. Covid FINDINGS: An AP, portable, upright chest radiograph is compared to study dated 09/24/2021. The examination is degraded by portable technique and apical lordotic positioning. The heart is top normal for projection noting atherosclerotic calcification of the thoracic aorta. The pulmonary vasculature is noncongested. There is multifocal airspace consolidation. This has modestly increased as compared to 09/24/2021. No large pleural effusion or pneumothorax is identified. The bony thorax is grossly intact. IMPRESSION: Multifocal airspace consolidation is consistent with the reported history of a viral pneumonia. This has modestly worsened as compared to 09/24/2021. Continued follow-up to resolution is recommended. ACT 112: Negative or not required by law. Electronically signed by: Sergio Lopes M.D. 09/28/2021 2:48 PM Chest CTA 09/28/21 14:11 CT angio chest PE protocol CLINICAL HISTORY: ro PE Covid pneumonia. Dyspnea. TECHNIQUE: Multidetector row helical CT of the chest was performed. Coronal and sagittal reformations were obtained. Automated dose lowering techniques and/or adjustment according to patient size were utilized for this exam. Comparison: Comparison is made to CT thorax 07/19/2020 FINDINGS: Lungs and pleura: Multifocal groundglass opacities are seen. Heart and pericardium: Cardiomegaly is seen with biatrial enlargement. Reflux of contrast is seen into the inferior vena cava. Vessels: No evidence of pulmonary embolism. Pulmonary trunk measures 36 mm in diameter. Mediastinum and mauri: Subcentimeter lymph nodes are seen. Chest wall and lower neck: Unremarkable. Abdomen: Unremarkable. Bones: Unremarkable. IMPRESSION: 1. No evidence of pulmonary embolism. 2. Cardiomegaly, pulmonary hypertension, and heart failure. 3. Multifocal groundglass opacities compatible with history of viral pneumonia. ACT 112: Negative or not required by law. Electronically signed by: Kalpesh Davies M.D. 09/28/2021 4:03 PM ECG Data Interpretation: Sinus rhythm with rate of 61. QRS 78. IL QTC intervals within normal limits. No ST elevation or ST depression. [facility] Narrative 1409: The patient was evaluated in room C11. A complete history and physical exam was performed Cardiac monitoring: An order was placed for continuous cardiac monitoring. The monitor shows a rate of 60 with sinusrhythm. Patient was found to be hypoxic on room air at 83%. Supplemental oxygen was applied via nasal cannula which improved patient's oxygen saturation. EMR reviewed.Patient was admitted to the hospital from September 24 to September 25, 2021 for COVID-19 pneumonia. He was discharged with Decadron. 1615: Vital signs stable on supplemental oxygen via nasal cannula. Imaging sh ows a worsening multifocal pneumonia. No PE. Labs are within normal limits. Will admit the patient to the [facility] hospitalist team. 1745: Patient was evaluated by Dr. Du [facility] hospitalist team. She states she spoke with the patient she would like to discharge the patient with home oxygen. She states she is working with Roxie cobos to discharge patient home with oxygen. 1807: Roxie was able to get authorization for home oxygen and we will plan on discharging the patient home based off the recommendation of the [facility] hospitalist team. 1815: Patient is now stating that he would like to be admitted to the hospital does not feel comfortable going home after discussing with hospitalist team and case filler. Patient will be admitted to the [facility] hospitalist team Dr. Du was notified and she states she will admit the patient. Impression & Plan Hypoxia, Pneumonia due to 2019 novel coronavirus Critical Care Time Critical Care Time: Yes Total Critical Care Time: 62 I have personally spent greater than 62 minutes of critical care time in the direct management of this patient. This includes bedside care, interpretation of diagnostic studies, and testing, discussion with consultants, patient, and family members, and other required patient management activities. This 62 minutes is in excess of all separately billable procedures. Discharge Plan Visit Data Chief Complaint: Respiratory Problems Stated Complaint: OXYGEN LEVEL HAS DROPPED TO 85,HAS COVID,PNUEMONIA Discharge Problem: Hypoxia, Pneumonia due to 2019 novel coronavirus Patient Disposition: Admitted As Inpatient Forms Stand Alone Forms: [facility] Prescriptions Prescriptions: No Action thiamine HCl (vitamin B1) 100 mg tablet 100 mg PO DAILY RF: 0 folic acid 1 mg tablet 1 mg PO DAILY RF: 0 losartan 50 mg tablet 50 mg PO DAILY RF: 0 carvedilol 12.5 mg tablet 12.5 mg PO BID RF: 0 guaifenesin [Mucinex] 600 mg tablet extended release 12hr 600 mg PO BID PRN (Reason: congestion) Qty: 30 RF: 0 dexamethasone [Decadron] 6 mg tablet 6 mg PO QAM RF: 0 Referrals Referrals: Toro Reyes MD [Primary Care Provider] -
[2021-09-28] MEDS ORDERED: hydrALAZINE HCL 20 MG/ML VIAL IV STA ×2 (18:14→23:51)
[2021-09-28] MEDS ORDERED: hydrALAZINE HCL 20 MG/ML VIAL IV PRN ×2 (18:15→19:05)
--- NOTE | 2021-09-28 19:07 | History & Physical Report ---
Date of Service September 28, 2021 Assessment & Plan (1) Pneumonia due to 2019 novel coronavirus: Plan: Diagnosed in early Sep, currently out of the window for treatment with remdesivir. Cont with decadron for total 10 days. Cont with supportive care. (2) Hypoxia: Plan: found to be oxygenating 83% at rest on arrival to the ER. (3) Hypertensive urgency: Plan: Uncontrolled, likely related to alcohol use and ongoing snuff use Cont gabapentin and Ativan as needed. Cont carvedilol and losartan per home regimen. USe hydralazine to bring it down. (4) Tobacco use: Plan: dips snuff, has on his personl. (5) Morbid obesity: (6) Alcohol abuse: Plan: did set expectation that she would quit (7) DVT prophylaxis: Plan: Lovenox Full Code Dispo-to PCU DO Marcello Shane Hospitalist History of Present Illness Chief Complaint: SOB, hypoxia Primary Care Provider: Toro Reyes MD 55 yo obese man with recent admission for covid pneumonia returns for worsening shortness of breath and hypoxia. He is obese with a history of alcohol abuse and tobacco use. He is coughing and wheezing with covid-19 diagnosed on 09/17. He was recently admitted for 2 days and was given decadron and remdesivir. He was discharged on decadron and returns with worsened respiratory symptoms. He denies diarrhea or other GI side effects. He does admit to continued liquor use and using snuff since returning home. He denies chest pain, fever, or chills. Allergies Allergy/AdvReac Type Severity Reaction Status Date / Time morphine AdvReac Intermediate ITCHING Verified 09/28/21 14:42 Home Medications Medication Instructions Recorded Confirmed Type folic acid 1 mg tablet 1 mg PO DAILY 07/19/20 09/28/21 History thiamine HCl (vitamin B1) 100 mg 100 mg PO DAILY 07/19/20 09/28/21 History tablet carvedilol 12.5 mg tablet 12.5 mg PO BID 09/17/21 09/28/21 History losartan 50 mg tablet 50 mg PO DAILY 09/17/21 09/28/21 History guaifenesin 600 mg tablet, 600 mg PO BID PRN #30 tab 09/25/21 09/28/21 Rx extended release 12 hr (Mucinex) dexamethasone 6 mg tablet 6 mg PO QAM 09/28/21 09/28/21 History (Decadron) Past Med/Surg History Medical History Alcohol abuse Hypertension Surgical History No significant past surgical history S/P cardiac cath 07/2020-normal coronary arteries Family History Father Coronary heart disease Mother Coronary heart disease Social History Smoking Status: Never smoker Tobacco Type: Smokeless Tobacco (Dip or Chew) Hx Alcohol Use: Yes Alcohol type: hard liquor Alcohol type Comment: 1 bottle whiskey/2 days Hx Substance Use: No Preferred Language: Arabic Communication Ability: Effective 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 Physical Exam Physical Exam: CONSTITUTIONAL: obese, vitals as above, generally well- appearing, NAD EYES: pupils are round and equal bilaterally, normal conjunctivae, no scleral icterus ENT: external ear and nose normal, MMM NECK: trachea midline RESPIRATORY: coarse rhonchi and wheezing throughout all lung marie. Normal respiratory effort CARDIOVASCULAR: regular rate and rhythm, S1 and 2 heard without murmurs, gallops or rubs, no JVD, no peripheral edema CHEST: inspection of chest was normal GASTROINTESTINAL: soft, nontender, ND, no guarding MUSCULOSKELETAL: strength 5/5 throughout, head is normocephalic and atraumatic, ambulating independently SKIN: warm and dry NEUROLOGIC: CN 2-12 grossly intact, normal cognition, normal speech, no tremor, no gross focal deficits. PSYCHIATRIC: alert cooperative and oriented to person, place and time. Results & Data Results & Data ([facility]) Vital Signs (Past 12 Hours) Vital Signs Temp Pulse Pulse Resp BP BP Pulse Ox 09/28/21 18:40 69 20 186/98 H 92 09/28/21 18:20 76 20 91 09/28/21 17:59 94 09/28/21 17:40 71 18 178/105 H 88 L 09/28/21 16:40 70 20 161/76 H 98 09/28/21 15:51 72 18 152/76 H 98 09/28/21 15:32 94 09/28/21 13:51 36.9 C 80 22 181/99 H 86 L Laboratory Results Short CBC 09/28/21 Range/Units 14:30 WBC 10.85 H (4.8-10.8) K/uL Hgb 14.1 (14.0-18.0) g/dL Hct 41.8 L (42-52) % Plt Count 218 (130-400) K/uL BMP 09/28/21 14:30 Sodium 137 Potassium 4.1 Chloride 107 Carbon Dioxide 20 L BUN 12 Creatinine 0.77 Glucose 160 H Calcium 8.4 L Cardiac Enzymes 09/28/21 Range/Units 14:30 Troponin I < 0.015 (0-0.045) ng/ml Liver Function 09/28/21 Range/Units 14:30 Total Bilirubin 0.3 (0.2-1) mg/dl AST 19 (15-37) U/L ALT 23 (12-78) U/L Alkaline Phosphatase 66 (45-117) U/L Albumin 2.8 L (3.4-5.0) gm/dl Diagnostic Findings Chest X-Ray 09/28/21 13:55 SINGLE VIEW CHEST CLINICAL HISTORY: Dyspnea. Covid FINDINGS: An AP, portable, upright chest radiograph is compared to study dated 09/24/2021. The examination is degraded by portable technique and apical l ordotic positioning. The heart is top normal for projection noting atherosclerotic calcification of the thoracic aorta. The pulmonary vasculature is noncongested. There is multifocal airspace consolidation. This has modestly increased as compared to 09/24/2021. No large pleural effusion or pneumothorax is identified. The bony thorax is grossly intact. IMPRESSION: Multifocal airspace consolidation is consistent with the reported history of a viral pneumonia. This has modestly worsened as compared to 09/24/2021. Continued follow-up to resolution is recommended. ACT 112: Negative or not required by law. Electronically signed by: Sergio Lopes M.D. 09/28/2021 2:48 PM Chest CTA 09/28/21 14:11 CT angio chest PE protocol CLINICAL HISTORY: ro PE Covid pneumonia. Dyspnea. TECHNIQUE: Multidetector row helical CT of the chest was performed. Coronal and sagittal reformations were obtained. Automated dose lowering techniques and/or adjustment according to patient size were utilized for this exam. Comparison: Comparison is made to CT thorax 07/19/2020 FINDINGS: Lungs and pleura: Multifocal groundglass opacities are seen. Heart and pericardium: Cardiomegaly is seen with biatrial enlargement. Reflux of contrast is seen into the inferior vena cava. Vessels: No evidence of pulmonary embolism. Pulmonary trunk measures 36 mm in diameter. Mediastinum and mauri: Subcentimeter lymph nodes are seen. Chest wall and lower neck: Unremarkable. Abdomen: Unremarkable. Bones: Unremarkable. IMPRESSION: 1. No evidence of pulmonary embolism. 2. Cardiomegaly, pulmonary hypertension, and heart failure. 3. Multifocal groundglass opacities compatible with history of viral pneumonia. ACT 112: Negative or not required by law. Electronically signed by: Kalpesh Davies M.D. 09/28/2021 4:03 PM Medications Administered Current Inpatient Medications Hydralazine HCl (Hydralazine Hcl 20 Mg/Ml Vial) 10 mg IV Q8H PRN PRN Reason: HTN Stop: 10/28/21 18:14 Last Admin: 09/28/21 18:25 Dose: 10 mg Documented by: Hydralazine HCl (Hydralazine Hcl 20 Mg/Ml Vial) 10 mg IV Q6H PRN PRN Reason: SBP>170 Stop: 10/28/21 19:14 Code Status & VTE Plan VTE Prophylaxis Plan VTE Prophylaxis will be ordered: Yes
[2021-09-28] MEDS ORDERED: LORazepam 3 MG/6 ML VIAL IV PRN (23:09)
[2021-09-28] MEDS ORDERED: LORazepam 2 MG/4 ML VIAL IV PRN (23:09)
[2021-09-28] MEDS ORDERED: ATIVAN IV ALCOHOL WITHDRAWL IV PRN (23:09)
[2021-09-28] MEDS ORDERED: ACETAMINOPHEN 325 MG TAB PO PRN (23:09)
[2021-09-28] MEDS ORDERED: GABAPENTIN 600 MG TAB PO ONE (23:09)
[2021-09-28] MEDS ORDERED: LORazepam 1 MG/2 ML VIAL IV PRN (23:09)
[2021-09-29] MEDS: dexAMETHasone 6 MG in SYRINGE 0 ML IV SCH ×2 (00:04→19:44)
[2021-09-29] MEDS: ENOXAPARIN INJ 40 MG/0.4 ML SYR SQ SCH ×3 (00:04→19:48)
[2021-09-29] MEDS: carvediloL 12.5 MG TAB PO SCH ×3 (00:04→19:44)
[2021-09-29] MEDS: ALBUT/IPRATROP 3MG/0.5MG NEB 3 ML VIAL NEB SCH ×5 (00:11→15:58)
[2021-09-29] MEDS: GABAPENTIN 600 MG TAB PO SCH ×3 (06:05→19:45)
[2021-09-29 06:24] LABS: Hematocrit (blood only) 39.3 % (42-52); Hemoglobin 13.2 g/dL (14.0-18.0); Mean Corpuscular Hemoglobin 31.5 pg (25-34); Mean Corpuscular Hgb Conc 33.6 g/dL (32-36); Mean Corpuscular Volume 93.8 fL (80-100); Mean Platelet Volume 9.4 fL (7.4-10.4); Platelet Count 217 K/uL (130-400); RDW Coefficient of Variation 13.3 % (11.5-14.5); RDW Standard Deviation 45.8 fL (36.4-46.3); Red Blood Count 4.19 M/uL (4.7-6.1); White Blood Count 13.42 K/uL (4.8-10.8)
[2021-09-29 07:07] LABS: BUN Creatinine Ratio 19.1 (10-20); Calcium 8.6 mg/dl (8.5-10.1); Creatinine Clr Calc Pharmacy 132.7 ml/min; Est GFR (African American) 106.1 ml/min; Est GFR (Non-African American) 91.6 ml/min; Potassium 4.3 mmol/L (3.5-5.1)
--- NOTE | 2021-09-29 08:37 | Electrocardiogram Report ---
Test Reason : Blood Pressure : / mmHG Vent. Rate : 061 BPM Atrial Rate : 061 BPM P-R Int : 164 ms QRS Dur : 078 ms QT Int : 430 ms P-R-T Axes : 043 061 074 degrees QTc Int : 432 ms Normal sinus rhythm Normal ECG When compared with ECG of 24-SEP-2021 10:27, No significant change was found Confirmed by Marcelo Paez ([id number]) on 09/29/2021 8:36:39 AM Referred By: REFERRED SELF Confirmed By:Marcelo Paez
[2021-09-29] MEDS: FOLIC ACID 1 MG TAB PO SCH (08:40)
[2021-09-29] MEDS: THIAMINE HCL 100 MG TAB PO SCH (08:40)
[2021-09-29] MEDS ORDERED: LOSARTAN POTASSIUM 50 MG TAB PO SCH (09:00)
[2021-09-29] MEDS ORDERED: hydrALAZINE HCL 20 MG/ML VIAL IV STA (10:18)
--- NOTE | 2021-09-29 19:45 | Hospitalist Progress Note ---
Date of Service September 29, 2021 Assessment & Plan (1) Pneumonia due to 2019 novel coronavirus: Plan: Diagnosed in early Nov, currently out of the window for treatment with remdesivir. Cont with decadron for total 10 days. Cont with supportive care. (2) Hypoxia: Plan: found to be oxygenating 83% at rest on arrival to the ER. Currently requiring 4 L/min continuously. (3) Hypertensive urgency: Plan: Uncontrolled, likely related to alcohol use and ongoing snuff use and steroids. Cont carvedilol and losartan per home regimen. Hydralazine PRN. Will increase losartan to 100mg daily and start adding Lasix daily in am. (4) Tobacco use: Plan: dips snuff, has on his person. (5) Morbid obesity: (6) Alcohol abuse: Plan: gabapentin/Lorazepam as needed. Aside from hypertension and intermittent anxiety that is reported there is no evidence of active withdrawl. (7) DVT prophylaxis: Plan: Lovenox Full Code Dispo-to PCU DO Marcello Shane Hospitalist Admission and Anticipated Discharge Date Admission Date: September 28, 2021 Subjective 55-year-old obese man with hypertension and history of alcohol abuse presents with Covid pneumonia. He is a readmission after being discharged with a couple days ago. Overnight he had an increased need for oxygen to 4 L/min Reports no changes in his breathing with intermittent cough that is not requiring medication Denies fevers or chills, snuff is on his side table Declines to prone Review of Systems Review of Systems: All systems reviewed and negative except as indicated above Physical Exam Physical Exam: CONSTITUTIONAL: obese, vitals as above, generally well- appearing, NAD EYES: pupils are round and equal bilaterally, normal conjunctivae, no scleral icterus ENT: external ear and nose normal, MMM NECK: trachea midline RESPIRATORY: coarse rhonchi and wheezing throughout all lung marie. Normal respiratory effort CARDIOVASCULAR: regular rate and rhythm, S1 and 2 heard without murmurs, gallops or rubs, no JVD, no peripheral edema CHEST: inspection of chest was normal GASTROINTESTINAL: soft, nontender, ND, no guarding MUSCULOSKELETAL: strength 5/5 throughout, head is normocephalic and atraumatic, ambulating independently SKIN: warm and dry NEUROLOGIC: CN 2-12 grossly intact, normal cognition, normal speech, no tremor, no gross focal deficits. PSYCHIATRIC: alert cooperative and oriented to person, place and time. Results & Data Results & Data ([facility]) Vital Signs (Past 12 Hours) Vital Signs Temp Pulse Pulse Resp BP Pulse Ox 09/29/21 15:58 61 22 88 L 09/29/21 15:46 36.8 C 64 22 177/97 H 92 09/29/21 15:38 177/97 H 09/29/21 13:48 57 L 19 145/82 H 93 09/29/21 11:23 37.0 C 61 23 145/79 H 93 09/29/21 10:51 64 16 94 09/29/21 10:00 149/91 H 09/29/21 08:39 36.8 C 66 22 188/108 H 91 09/29/21 08:00 67 Laboratory Results Short CBC 09/29/21 Range/Units 05:59 WBC 13.42 H (4.8-10.8) K/uL Hgb 13.2 L (14.0-18.0) g/dL Hct 39.3 L (42-52) % Plt Count 217 (130-400) K/uL BMP 09/29/21 05:59 Sodium 134 L Potassium 4.3 Chloride 101 Carbon Dioxide 24 BUN 18 Creatinine 0.94 Glucose 142 H Calcium 8.6 Medications Administered Current Inpatient Medications Acetaminophen (Acetaminophen 325 Mg Tab) 650 mg PO Q4H PRN PRN Reason: Pain or Fever Stop: 10/28/21 23:08 Albuterol (Albut/Ipratrop 3mg/0.5mg Neb 3 Ml Vial) 3 ml NEB Q4R PRN PRN Reason: SOB/wheezing Stop: 10/28/21 23:08 Carvedilol (Carvedilol 12.5 Mg Tab) 12.5 mg PO BID SUSAN Stop: 10/28/21 23:08 Last Admin: 09/29/21 08:40 Dose: 12.5 mg Documented by: Enoxaparin Sodium (Enoxaparin Inj 40 Mg/0.4 Ml Syr) 40 mg SQ HS SUSAN Stop: 10/28/21 23:29 Last Admin: 09/29/21 00:04 Dose: 40 mg Documented by: Folic Acid (Folic Acid 1 Mg Tab) 1 mg PO DAILY SUSAN Stop: 10/29/21 08:59 Last Admin: 09/29/21 08:40 Dose: 1 mg Documented by: Furosemide (Furosemide Inj 20 Mg/2 Ml Vial) 20 mg IV DAILY [facility] Stop: 10/30/21 08:59 Gabapentin (Gabapentin 600 Mg Tab) 600 mg PO Q8H SUSAN Stop: 09/30/21 12:01 Gabapentin (Gabapentin 600 Mg Tab) 600 mg PO Q12H SUSAN Stop: 10/01/21 12:01 Gabapentin (Gabapentin 600 Mg Tab) 600 mg PO Q24H [facility] Stop: 10/02/21 05:16 Hydralazine HCl (Hydralazine Hcl 20 Mg/Ml Vial) 10 mg IV Q6H PRN PRN Reason: SBP>170 Stop: 10/28/21 19:14 Last Admin: 09/29/21 15:38 Dose: 10 mg Documented by: Dexamethasone 6 mg/ Syringe 1.5 mls @ 1 mls/min IV Q24H [facility] Stop: 10/28/21 23:29 Last Admin: 09/29/21 00:04 Dose: 1 mls/min Documented by: Lorazepam (Ativan) 1 mg in 2 mls @ 2 mls/min IV UD PRN; Protocol PRN Reason: EtOH Withdrawl AWSS Score 6,7 Stop: 10/28/21 23:08 Lorazepam (Ativan) 2 mg in 4 mls @ 4 mls/min IV UD PRN; Protocol PRN Reason: EtOH Withdrawl AWSS Score 8,9 Stop: 10/28/21 23:08 Lorazepam (Ativan) 3 mg in 6 mls @ 4 mls/min IV ONCE PRN; Protocol PRN Reason: EtOH Withdrawl AWSS Score >=10 Stop: 10/28/21 23:08 Losartan Potassium (Losartan Potassium 50 Mg Tab) 50 mg PO DAILY SUSAN Stop: 10/29/21 08:59 Last Admin: 09/29/21 08:40 Dose: 50 mg Documented by: Thiamine HCl (Thiamine Hcl 100 Mg Tab) 100 mg PO DAILY [facility] Stop: 10/29/21 08:59 Last Admin: 09/29/21 08:40 Dose: 100 mg Documented by:
[2021-09-30] MEDS: GABAPENTIN 600 MG TAB PO SCH ×2 (05:42→12:06)
[2021-09-30 06:30] LABS: Hemoglobin 14.4 g/dL (14.0-18.0); Mean Corpuscular Hemoglobin 31.6 pg (25-34); Mean Corpuscular Hgb Conc 33.5 g/dL (32-36); Mean Corpuscular Volume 94.3 fL (80-100); Mean Platelet Volume 9.5 fL (7.4-10.4); Platelet Count 268 K/uL (130-400); RDW Coefficient of Variation 13.1 % (11.5-14.5); RDW Standard Deviation 45.2 fL (36.4-46.3); Red Blood Count 4.56 M/uL (4.7-6.1); White Blood Count 9.75 K/uL (4.8-10.8)
[2021-09-30 07:02] LABS: BUN Creatinine Ratio 25.3 (10-20); C Reactive Protein 5.5 mg/dl (0-0.29); Calcium 8.1 mg/dl (8.5-10.1); Creatinine Clr Calc Pharmacy 132.4 ml/min; Est GFR (African American) 106.1 ml/min; Est GFR (Non-African American) 91.6 ml/min; Magnesium 2.2 mg/dl (1.8-2.4); Potassium 4.3 mmol/L (3.5-5.1)
[2021-09-30] MEDS: FOLIC ACID 1 MG TAB PO SCH (09:33)
[2021-09-30] MEDS: FUROSEMIDE INJ 20 MG/2 ML VIAL IV SCH (09:33)
[2021-09-30] MEDS: carvediloL 12.5 MG TAB PO SCH ×2 (09:33→20:09)
[2021-09-30] MEDS: THIAMINE HCL 100 MG TAB PO SCH (09:34)
[2021-09-30] MEDS: LOSARTAN POTASSIUM 50 MG TAB PO SCH (09:48)
[2021-09-30] MEDS ORDERED: dexAMETHasone 6 MG in SYRINGE 0 ML IV ONE (18:03)
--- NOTE | 2021-09-30 20:00 | Hospitalist Progress Note ---
Date of Service September 30, 2021 Assessment & Plan (1) Acute and chronic respiratory failure with hypoxia: Plan: 2/2 covid pneumonia. (2) Pneumonia due to 2019 novel coronavirus: Plan: Diagnosed in early Sep, currently out of the window for treatment with remdesivir. Cont with decadron for total 10 days. Cont with supportive care. (3) Hypertensive urgency: Plan: Uncontrolled, likely related to alcohol use and ongoing snuff use and steroids. Cont carvedilol and losartan per home regimen. Hydralazine PRN. Will increase losartan to 100mg daily and start adding Lasix daily in am. (4) Tobacco use: Plan: dips snuff, has on his person. (5) Morbid obesity: (6) Alcohol abuse: Plan: gabapentin/Lorazepam as needed. Aside from hypertension and intermittent anxiety that is reported there is no evidence of active withdrawl. (7) DVT prophylaxis: Plan: Lovenox Full Code Dispo-to PCU DO Marcello Shane Hospitalist Admission and Anticipated Discharge Date Admission Date: September 28, 2021 Subjective 55-year-old obese man with hypertension and history of alcohol abuse presents with Covid pneumonia. He is a readmission after being discharged with a couple days ago. Overnight he had an increased need for oxygen to 4 L/min Reports no changes in his breathing with intermittent cough that is not requiring medication Denies fevers or chills, snuff is on his side table Declines to prone Review of Systems Review of Systems: All systems reviewed and negative except as indicated above Physical Exam Physical Exam: CONSTITUTIONAL: obese, vitals as above, generally well- appearing, NAD EYES: pupils are round and equal bilaterally, normal conjunctivae, no scleral icterus ENT: external ear and nose normal, MMM NECK: trachea midline RESPIRATORY: coarse rhonchi and wheezing throughout all lung marie. Normal respiratory effort CARDIOVASCULAR: regular rate and rhythm, S1 and 2 heard without murmurs, gallops or rubs, no JVD, no peripheral edema CHEST: inspection of chest was normal GASTROINTESTINAL: soft, nontender, ND, no guarding MUSCULOSKELETAL: strength 5/5 throughout, head is normocephalic and atraumatic, ambulating independently SKIN: warm and dry NEUROLOGIC: CN 2-12 grossly intact, normal cognition, normal speech, no tremor, no gross focal deficits. PSYCHIATRIC: alert cooperative and oriented to person, place and time. Results & Data Results & Data ([facility]) Vital Signs (Past 12 Hours) Vital Signs Temp Pulse Pulse Resp BP Pulse Ox 09/30/21 19:39 36.9 C 61 22 132/77 87 L 09/30/21 16:17 37 C 59 L 16 142/81 H 89 L 09/30/21 15:36 62 09/30/21 11:26 36.7 C 57 L 18 142/86 H 90 09/30/21 08:00 36.8 C 65 22 150/90 H 91 Laboratory Results Short CBC 09/30/21 Range/Units 05:55 WBC 9.75 (4.8-10.8) K/uL Hgb 14.4 (14.0-18.0) g/dL Hct 43.0 (42-52) % Plt Count 268 (130-400) K/uL BMP 09/30/21 05:55 Sodium 136 Potassium 4.3 Chloride 102 Carbon Dioxide 24 BUN 24 H Creatinine 0.94 Glucose 138 H Calcium 8.1 L Medications Administered Current Inpatient Medications Acetaminophen (Acetaminophen 325 Mg Tab) 650 mg PO Q4H PRN PRN Reason: Pain or Fever Stop: 10/28/21 23:08 Albuterol (Albut/Ipratrop 3mg/0.5mg Neb 3 Ml Vial) 3 ml NEB Q4R PRN PRN Reason: SOB/wheezing Stop: 10/28/21 23:08 Carvedilol (Carvedilol 12.5 Mg Tab) 12.5 mg PO BID SUSAN Stop: 10/28/21 23:08 Last Admin: 09/30/21 09:33 Dose: 12.5 mg Documented by: Dexamethasone (Dexamethasone 4 Mg Tab) 6 mg PO DAILY@1100 SUSAN Stop: 10/31/21 10:59 Enoxaparin Sodium (Enoxaparin Inj 40 Mg/0.4 Ml Syr) 40 mg SQ HS SUSAN Stop: 10/28/21 23:29 Last Admin: 09/29/21 19:48 Dose: Not Given Documented by: Folic Acid (Folic Acid 1 Mg Tab) 1 mg PO DAILY SUSAN Stop: 10/29/21 08:59 Last Admin: 09/30/21 09:33 Dose: 1 mg Documented by: Furosemide (Furosemide Inj 20 Mg/2 Ml Vial) 20 mg IV DAILY SUSAN Stop: 10/30/21 08:59 Last Admin: 09/30/21 09:33 Dose: 20 mg Documented by: Gabapentin (Gabapentin 600 Mg Tab) 600 mg PO Q12H [facility] Stop: 10/01/21 12:01 Gabapentin (Gabapentin 600 Mg Tab) 600 mg PO Q24H SUSAN Stop: 10/02/21 05:16 Hydralazine HCl (Hydralazine Hcl 20 Mg/Ml Vial) 10 mg IV Q6H PRN PRN Reason: SBP>170 Stop: 10/28/21 19:14 Last Admin: 09/29/21 15:38 Dose: 10 mg Documented by: Lorazepam (Ativan) 1 mg in 2 mls @ 2 mls/min IV UD PRN; Protocol PRN Reason: EtOH Withdrawl AWSS Score 6,7 Stop: 10/28/21 23:08 Lorazepam (Ativan) 2 mg in 4 mls @ 4 mls/min IV UD PRN; Protocol PRN Reason: EtOH Withdrawl AWSS Score 8,9 Stop: 10/28/21 23:08 Lorazepam (Ativan) 3 mg in 6 mls @ 4 mls/min IV ONCE PRN; Protocol PRN Reason: EtOH Withdrawl AWSS Score >=10 Stop: 10/28/21 23:08 Losartan Potassium (Losartan Potassium 50 Mg Tab) 100 mg PO DAILY [facility] Stop: 10/30/21 08:59 Last Admin: 09/30/21 09:48 Dose: 100 mg Documented by: Thiamine HCl (Thiamine Hcl 100 Mg Tab) 100 mg PO DAILY SUSAN Stop: 10/29/21 08:59 Last Admin: 09/30/21 09:34 Dose: 100 mg Documented by:
[2021-09-30] MEDS: ENOXAPARIN INJ 40 MG/0.4 ML SYR SQ SCH (20:10)
[2021-10-01] MEDS: GABAPENTIN 600 MG TAB PO SCH ×2 (00:03→11:51)
[2021-10-01] MEDS: LOSARTAN POTASSIUM 50 MG TAB PO SCH (09:04)
[2021-10-01] MEDS: THIAMINE HCL 100 MG TAB PO SCH (09:04)
[2021-10-01] MEDS: FUROSEMIDE INJ 20 MG/2 ML VIAL IV SCH (09:04)
[2021-10-01] MEDS: carvediloL 12.5 MG TAB PO SCH ×2 (09:05→21:21)
[2021-10-01] MEDS: FOLIC ACID 1 MG TAB PO SCH (09:05)
[2021-10-01] MEDS: ALBUT/IPRATROP 3MG/0.5MG NEB 3 ML VIAL NEB PRN (10:57)
[2021-10-01] MEDS: dexAMETHasone 4 MG TAB PO SCH (11:51)
[2021-10-01] MEDS: ENOXAPARIN INJ 40 MG/0.4 ML SYR SQ SCH (21:18)
[2021-10-01] MEDS ORDERED: BENZONATATE 100 MG CAPSULE PO PRN (21:20)
[2021-10-01] MEDS ORDERED: MELATONIN 3 MG TAB PO PRN (21:21)
[2021-10-01] MEDS ORDERED: guaiFENesin/CODEINE 100MG/10MG 5ML UDC PO STA (21:22)
--- NOTE | 2021-10-01 21:26 | Hospitalist Progress Note ---
Date of Service October 01, 2021 Assessment & Plan (1) Pneumonia due to 2019 novel coronavirus: Plan: Diagnosed in early Nov, currently out of the window for treatment with remdesivir. Cont with decadron for total 10 days. Cont with supportive care. (2) Hypoxia: Plan: found to be oxygenating 83% at rest on arrival to the ER. Currently requiring 10 L/min continuously. Declines to prone. Starting Robitussin AC for cough. (3) Hypertensive urgency: Plan: Controlled on increased dose of losartan. Cont carvedilol per home regimen. Hydralazine PRN. Cont Lasix daily for now, trend BMP daily. (4) Tobacco use: Plan: dips snuff, has on his person. (5) Morbid obesity: (6) Alcohol abuse: Plan: gabapentin/Lorazepam as needed. No evidence of alcohol withdrawal. (7) DVT prophylaxis: Plan: Lovenox Full Code Dispo-to PCU DO Marcello Shane Hospitalist Admission and Anticipated Discharge Date Admission Date: September 28, 2021 Subjective 55-year-old obese man with hypertension and history of alcohol abuse presents with Covid pneumonia. He is a readmission after being discharged with a couple days ago. Overnight he had an increased need for oxygen to 10 L/min some persistent SOB and coughing Denies fevers or chills, snuff is on his side table Declines to prone Review of Systems Review of Systems: All systems reviewed and negative except as indicated above Physical Exam Physical Exam: CONSTITUTIONAL: obese, vitals as above, generally well- appearing, NAD EYES: pupils are round and equal bilaterally, normal conjunctivae, no scleral icterus ENT: external ear and nose normal, MMM NECK: trachea midline RESPIRATORY: coarse rhonchi and wheezing throughout all lung marie. Normal respiratory effort CARDIOVASCULAR: regular rate and rhythm, S1 and 2 heard without murmurs, gallops or rubs, no JVD, no peripheral edema CHEST: inspection of chest was normal GASTROINTESTINAL: soft, nontender, ND, no guarding MUSCULOSKELETAL: strength 5/5 throughout, head is normocephalic and atraumatic, ambulating independently SKIN: warm and dry NEUROLOGIC: CN 2-12 grossly intact, normal cognition, normal speech, no tremor, no gross focal deficits. PSYCHIATRIC: alert cooperative and oriented to person, place and time. Results & Data Results & Data ([facility]) Vital Signs (Past 12 Hours) Vital Signs Temp Pulse Pulse Resp BP Pulse Ox 10/01/21 19:13 36.6 C 63 19 150/83 H 94 10/01/21 16:40 36.6 C 62 19 150/85 H 90 10/01/21 11:35 36.6 C 60 20 121/64 90 10/01/21 10:58 85 18 91 Medications Administered Current Inpatient Medications Acetaminophen (Acetaminophen 325 Mg Tab) 650 mg PO Q4H PRN PRN Reason: Pain or Fever Stop: 10/28/21 23:08 Albuterol (Albut/Ipratrop 3mg/0.5mg Neb 3 Ml Vial) 3 ml NEB Q4R PRN PRN Reason: SOB/wheezing Stop: 10/28/21 23:08 Last Admin: 10/01/21 10:57 Dose: 3 ml Documented by: Benzonatate (Benzonatate 100 Mg Capsule) 100 mg PO TID PRN PRN Reason: Cough Stop: 10/31/21 21:19 Carvedilol (Carvedilol 12.5 Mg Tab) 12.5 mg PO BID SUSAN Stop: 10/28/21 23:08 Last Admin: 10/01/21 21:21 Dose: Not Given Documented by: Dexamethasone (Dexamethasone 4 Mg Tab) 6 mg PO DAILY@1100 SUSAN Stop: 10/31/21 10:59 Last Admin: 10/01/21 11:51 Dose: 6 mg Documented by: Enoxaparin Sodium (Enoxaparin Inj 40 Mg/0.4 Ml Syr) 40 mg SQ HS SUSAN Stop: 10/28/21 23:29 Last Admin: 10/01/21 21:18 Dose: 40 mg Documented by: Folic Acid (Folic Acid 1 Mg Tab) 1 mg PO DAILY SUSAN Stop: 10/29/21 08:59 Last Admin: 10/01/21 09:05 Dose: 1 mg Documented by: Furosemide (Furosemide Inj 20 Mg/2 Ml Vial) 20 mg IV DAILY SUSAN Stop: 10/30/21 08:59 Last Admin: 10/01/21 09:04 Dose: 20 mg Documented by: Gabapentin (Gabapentin 600 Mg Tab) 600 mg PO Q24H SUSAN Stop: 10/02/21 05:16 Guaifenesin/Codeine Phosphate (Guaifenesin/Codeine 200mg/20mg 10ml Udc) 10 ml PO Q6H PRN PRN Reason: Cough Stop: 10/31/21 21:21 Guaifenesin/Codeine Phosphate (Guaifenesin/Codeine 100mg/10mg 5ml Udc) 10 ml PO NOW STA Stop: 10/01/21 21:23 Hydralazine HCl (Hydralazine Hcl 20 Mg/Ml Vial) 10 mg IV Q6H PRN PRN Reason: SBP>170 Stop: 10/28/21 19:14 Last Admin: 09/29/21 15:38 Dose: 10 mg Documented by: Lorazepam (Ativan) 1 mg in 2 mls @ 2 mls/min IV UD PRN; Protocol PRN Reason: EtOH Withdrawl AWSS Score 6,7 Stop: 10/28/21 23:08 Lorazepam (Ativan) 2 mg in 4 mls @ 4 mls/min IV UD PRN; Protocol PRN Reason: EtOH Withdrawl AWSS Score 8,9 Stop: 10/28/21 23:08 Lorazepam (Ativan) 3 mg in 6 mls @ 4 mls/min IV ONCE PRN; Protocol PRN Reason: EtOH Withdrawl AWSS Score >=10 Stop: 10/28/21 23:08 Losartan Potassium (Losartan Potassium 50 Mg Tab) 100 mg PO DAILY SUSAN Stop: 10/30/21 08:59 Last Admin: 10/01/21 09:04 Dose: 100 mg Documented by: Melatonin (Melatonin 3 Mg Tab) 3 mg PO HS PRN PRN Reason: Sleep Stop: 10/31/21 21:20 Thiamine HCl (Thiamine Hcl 100 Mg Tab) 100 mg PO DAILY SUSAN Stop: 10/29/21 08:59 Last Admin: 10/01/21 09:04 Dose: 100 mg Documented by:
[2021-10-02] MEDS ORDERED: GABAPENTIN 600 MG TAB PO SCH (05:15)
[2021-10-02 07:18] LABS: Hemoglobin 14.3 g/dL (14.0-18.0); Mean Corpuscular Hemoglobin 31.8 pg (25-34); Mean Corpuscular Hgb Conc 33.3 g/dL (32-36); Mean Corpuscular Volume 95.6 fL (80-100); Platelet Count 259 K/uL (130-400); RDW Coefficient of Variation 13.2 % (11.5-14.5); RDW Standard Deviation 45.9 fL (36.4-46.3); White Blood Count 8.84 K/uL (4.8-10.8)
[2021-10-02 07:50] LABS: BUN Creatinine Ratio 26.7 (10-20); C Reactive Protein 1.87 mg/dl (0-0.29); Calcium 8.8 mg/dl (8.5-10.1); Creatinine Clr Calc Pharmacy 125.7 ml/min; Est GFR (African American) 101.4 ml/min; Est GFR (Non-African American) 87.5 ml/min; Potassium 4.2 mmol/L (3.5-5.1)
[2021-10-02] MEDS: THIAMINE HCL 100 MG TAB PO SCH (07:55)
[2021-10-02] MEDS: LOSARTAN POTASSIUM 50 MG TAB PO SCH (07:55)
[2021-10-02] MEDS: carvediloL 12.5 MG TAB PO SCH ×2 (07:55→20:22)
[2021-10-02] MEDS: FOLIC ACID 1 MG TAB PO SCH (07:56)
[2021-10-02] MEDS: FUROSEMIDE INJ 20 MG/2 ML VIAL IV SCH (07:56)
[2021-10-02] MEDS: dexAMETHasone 4 MG TAB PO SCH (11:11)
[2021-10-02] MEDS: ALBUT/IPRATROP 3MG/0.5MG NEB 3 ML VIAL NEB PRN (11:31)
--- NOTE | 2021-10-02 19:39 | Hospitalist Progress Note ---
Date of Service October 02, 2021 Assessment & Plan (1) Acute and chronic respiratory failure with hypoxia: Plan: Multifocal COVID-19 pneumonia CTA:No evidence of pulmonary embolism. Cardiomegaly, pulmonary hypertension, and heart failure. Multifocal groundglass opacities compatible with history of viral pneumonia. Continue dexamethasone Encouraged to prone Lasix as needed Continue oxygen support as needed Low threshold to consult pulmonology if clinically worsens Nebs as needed On Lovenox for DVT prophylaxis (2) Pneumonia due to 2019 novel coronavirus: Plan: Diagnosed in early Nov Management as above (3) Hypertensive urgency: Plan: In the setting of alcohol use, steroids Carvedilol, losartan Hydralazine PRN Also on lasix (4) Tobacco use: Plan: snuff [employer] to quit (5) Morbid obesity: Plan: BMI:47 (6) Alcohol abuse: Plan: Completed gabapentin protocol Continue thiamine, folic acid Monitor for withdrawal (7) DVT prophylaxis: Plan: Lovenox SQ Code Status Full Code Admission and Anticipated Discharge Date Admission Date: September 28, 2021 Subjective Patient is seen and examined at bedside Patient has persistent cough, shortness of breath Oxygen requirement increased to 30 L, 70% FiO2 Advised to prone Denies any chest pain, dizziness, nausea, abdominal pain Review of Systems Review of Systems: All systems reviewed & are unremarkable except as noted in Subjective Physical Exam Physical Exam: Physical Exam: Vitals signs as noted above General Appearance:Morbidly Obese, no apparent distress Head: normocephalic, Atraumatic Eyes: normal inspection, EOMI Neck: supple, Trachea midline Respiratory/Chest: Decreased breath sounds, Basal Crackles, No accessory muscle use Cardiovascular: S1, S2, No murmur Abdomen/GI:Soft, Non tender, Bowel sounds present Extremities/Musculoskeletal:normal inspection, no edema Neurologic/Psych:AAOX3, grossly no focal neurological deficits Skin: normal color, warm Results & Data Results & Data ([facility]) Vital Signs (Past 12 Hours) Vital Signs Temp Pulse Pulse Pulse Resp BP Pulse Ox 10/02/21 16:15 65 10/02/21 16:11 36.8 C 62 16 154/91 H 93 10/02/21 15:15 62 24 91 10/02/21 15:14 62 22 91 10/02/21 11:32 63 20 88 L 10/02/21 11:15 36.4 C L 69 20 122/79 88 L 10/02/21 07:50 60 Laboratory Results Short CBC 10/02/21 Range/Units 06:14 WBC 8.84 (4.8-10.8) K/uL Hgb 14.3 (14.0-18.0) g/dL Hct 43.0 (42-52) % Plt Count 259 (130-400) K/uL BMP 10/02/21 06:14 Sodium 134 L Potassium 4.2 Chloride 100 Carbon Dioxide 26 BUN 26 H Creatinine 0.97 Glucose 112 H Calcium 8.8
[2021-10-02] MEDS: ENOXAPARIN INJ 40 MG/0.4 ML SYR SQ SCH (20:22)
[2021-10-03] MEDS: ALBUT/IPRATROP 3MG/0.5MG NEB 3 ML VIAL NEB PRN (07:40)
--- NOTE | 2021-10-03 08:28 | XRay Report ---
XR chest 1V portable HISTORY: 56 years-old Male COVID acute shortness of breath. COVID Positive. COMPARISON: Chest radiograph and CTA chest 09/28/2021 TECHNIQUE: Portable AP view of the chest FINDINGS: Moderate enlargement of the cardiac silhouette. Interstitial coarsening with multifocal bilateral air space opacities, moderately worsened from comparison. No pneumothorax or large pleural effusion. No a cute fracture. IMPRESSION: Moderately worsened multifocal airspace opacities compatible with viral pneumonia. ACT 112: Negative or not required by law. The above report was generated using voice recognition software. It may contain grammatical, syntax o r spelling errors. Electronically signed by: Daniel Hutton M.D. 10/03/2021 8:27 AM
[2021-10-03] MEDS: FOLIC ACID 1 MG TAB PO SCH (09:15)
[2021-10-03] MEDS: dexAMETHasone 4 MG TAB PO SCH (09:15)
[2021-10-03] MEDS: THIAMINE HCL 100 MG TAB PO SCH (09:16)
[2021-10-03] MEDS: carvediloL 12.5 MG TAB PO SCH ×2 (09:16→20:08)
[2021-10-03] MEDS: LOSARTAN POTASSIUM 50 MG TAB PO SCH (09:16)
[2021-10-03] MEDS: FUROSEMIDE INJ 20 MG/2 ML VIAL IV SCH (09:17)
[2021-10-03] MEDS ORDERED: FUROSEMIDE INJ 20 MG/2 ML VIAL IV ONE ×2 (09:39→18:30)
[2021-10-03 09:41] LABS: BUN Creatinine Ratio 25.8 (10-20); Calcium 8.6 mg/dl (8.5-10.1); Creatinine Clr Calc Pharmacy 142.9 ml/min; Est GFR (African American) 113.7 ml/min; Est GFR (Non-African American) 98.1 ml/min; Magnesium 2.2 mg/dl (1.8-2.4); Potassium 4.5 mmol/L (3.5-5.1)
--- NOTE | 2021-10-03 12:18 | Hospitalist Progress Note ---
Date of Service October 03, 2021 Assessment & Plan (1) Acute and chronic respiratory failure with hypoxia: Plan: Multifocal COVID-19 pneumonia CTA:No evidence of pulmonary embolism. Cardiomegaly, pulmonary hypertension, and heart failure. Multifocal groundglass opacities compatible with history of viral pneumonia. Continue dexamethasone Encouraged to prone Lasix as needed Continue oxygen support as needed Nebs as needed On Lovenox for DVT prophylaxis (2) Pneumonia due to 2019 novel coronavirus: Plan: Diagnosed in early Sep, currently has had symptoms for approximately 14 days at this point. Management as above (3) Hypertensive urgency: Plan: In the setting of alcohol use, steroids Carvedilol, losartan which was increased this admission. BP is stable and at goal. Also getting Lasix regularly per plan above. Cont current therapy. (4) Tobacco use: Plan: snuff [employer] to quit but currently using this admission. (5) Morbid obesity: Plan: BMI:47 (6) Alcohol abuse: Plan: Completed gabapentin protocol Continue thiamine, folic acid Monitor for withdrawal (7) DVT prophylaxis: Plan: Lovenox SQ Full Code Dispo-cont PCU monitoring. As above, called at bedside and discussed guarded prognosis with her. Discussed steps that would be needed if he were to progress overnight. She verbalized understanding. They both thanked me prior to leaving the room. Luz Du DO [facility] Hospitalist Admission and Anticipated Discharge Date Admission Date: September 28, 2021 Subjective 55-year-old obese man with hypertension and history of alcohol abuse presents with Covid pneumonia. This is a readmission after being discharged with a couple days ago. He continues to escalate in oxygen supplementation needs and is now on hi flow O2 with a saturation around 88% Still refusing to prone. Expressed fear of intubation Tearful, anxious States his head was off this morning but he is "getting there" now. Called his at bedside and explained the situation Discussed that he may progress to needing BIPAP intermittently or even mechanical ventilation. She verbalized understanding. Otherwise denies any nausea, pain and having BMs. No other issues at this time. Review of Systems Review of Systems: All systems reviewed and negative except as indicated above Physical Exam Physical Exam: CONSTITUTIONAL: obese, vitals as above, generally well- appearing, NAD EYES: normal conjunctivae, no scleral icterus ENT: external ear and nose normal, MMM NECK: trachea midline RESPIRATORY: no wheezing, rhonchi or rales. Diminished breath sounds throughout. Normal respiratory effort on hi flow nasal canula ([id number]%, 30 LPM oxygenating 88%) CARDIOVASCULAR: regular rate and rhythm, S1 and 2 heard without murmurs, gallops or rubs, no JVD, no peripheral edema CHEST: inspection of chest was normal GASTROINTESTINAL: soft, nontender, ND, no guarding MUSCULOSKELETAL: strength 5/5 throughout, head is normocephalic and atraumatic, ambulating independently SKIN: warm and dry NEUROLOGIC: CN 2-12 grossly intact, normal cognition, normal speech, no tremor, no gross focal deficits. PSYCHIATRIC: alert cooperative and oriented to person, place and time. Results & Data Results & Data ([facility]) Vital Signs (Past 12 Hours) Vital Signs Temp Pulse Pulse Pulse Resp BP Pulse Ox 10/03/21 12:10 67 23 87 L 10/03/21 11:59 90 10/03/21 11:49 36.6 C 69 16 119/77 87 L 10/03/21 08:07 36.5 C 53 L 18 169/100 H 92 10/03/21 07:40 61 22 91 10/03/21 07:29 75 18 91 10/03/21 07:00 50 L 10/03/21 03:48 37.4 C 54 L 16 166/101 H 90 10/03/21 03:24 62 20 90 Laboratory Results [facility] 10/03/21 08:44 Sodium 134 L Potassium 4.5 Chloride 101 Carbon Dioxide 26 BUN 22 H Creatinine 0.85 Glucose 91 Calcium 8.6 Diagnostic Findings Chest X-Ray 10/03/21 07:00 XR chest 1V portable HISTORY: 56 years-old Male COVID acute shortness of breath. COVID Positive. COMPARISON: Chest radiograph and CTA chest 09/28/2021 TECHNIQUE: Portable AP view of the chest FINDINGS: Moderate enlargement of the cardiac silhouette. Interstitial coarsening with multifocal bilateral airspace opacities, moderately worsened from comparison. No pneumothorax or large pleural effusion. No acute fracture. IMPRESSION: Moderately worsened multifocal airspace opacities compatible with viral pneumonia. ACT 112: Negative or not required by law. The above report was generated using voice recognition software. It may contain grammatical, syntax or spelling errors. Electronically signed by: Daniel Hutton M.D. 10/03/2021 8:27 AM Medications Administered Current Inpatient Medications Acetaminophen (Acetaminophen 325 Mg Tab) 650 mg PO Q4H PRN PRN Reason: Pain or Fever Stop: 10/28/21 23:08 Albuterol (Albut/Ipratrop 3mg/0.5mg Neb 3 Ml Vial) 3 ml NEB Q4R PRN PRN Reason: SOB/wheezing Stop: 10/28/21 23:08 Last Admin: 10/03/21 07:40 Dose: 3 ml Documented by: Benzonatate (Benzonatate 100 Mg Capsule) 100 mg PO TID PRN PRN Reason: Cough Stop: 10/31/21 21:19 Carvedilol (Carvedilol 12.5 Mg Tab) 12.5 mg PO BID SUSAN Stop: 10/28/21 23:08 Last Admin: 10/03/21 09:16 Dose: 12.5 mg Documented by: Dexamethasone (Dexamethasone 4 Mg Tab) 6 mg PO DAILY@1100 SUSAN Stop: 10/31/21 10:59 Last Admin: 10/03/21 09:15 Dose: 6 mg Documented by: Enoxaparin Sodium (Enoxaparin Inj 40 Mg/0.4 Ml Syr) 40 mg SQ HS SUSAN Stop: 10/28/21 23:29 Last Admin: 10/02/21 20:22 Dose: 40 mg Documented by: Folic Acid (Folic Acid 1 Mg Tab) 1 mg PO DAILY SUSAN Stop: 10/29/21 08:59 Last Admin: 10/03/21 09:15 Dose: 1 mg Documented by: Furosemide (Furosemide 40 Mg/4 Ml Vial) 40 mg IV DAILY SUSAN Stop: 11/03/21 08:59 Guaifenesin/Codeine Phosphate (Guaifenesin/Codeine 200mg/20mg 10ml Udc) 10 ml PO Q6H PRN PRN Reason: Cough Stop: 10/31/21 21:21 Last Admin: 10/01/21 22:17 Dose: 10 ml Documented by: Hydralazine HCl (Hydralazine Hcl 20 Mg/Ml Vial) 10 mg IV Q6H PRN PRN Reason: SBP>170 Stop: 10/28/21 19:14 Last Admin: 09/29/21 15:38 Dose: 10 mg Documented by: Lorazepam (Ativan) 1 mg in 2 mls @ 2 mls/min IV UD PRN; Protocol PRN Reason: EtOH Withdrawl AWSS Score 6,7 Stop: 10/28/21 23:08 Lorazepam (Ativan) 2 mg in 4 mls @ 4 mls/min IV UD PRN; Protocol PRN Reason: EtOH Withdrawl AWSS Score 8,9 Stop: 10/28/21 23:08 Lorazepam (Ativan) 3 mg in 6 mls @ 4 mls/min IV ONCE PRN; Protocol PRN Reason: EtOH Withdrawl AWSS Score >=10 Stop: 10/28/21 23:08 Losartan Potassium (Losartan Potassium 50 Mg Tab) 100 mg PO DAILY SUSAN Stop: 10/30/21 08:59 Last Admin: 10/03/21 09:16 Dose: 100 mg Documented by: Melatonin (Melatonin 3 Mg Tab) 3 mg PO HS PRN PRN Reason: Sleep Stop: 10/31/21 21:20 Thiamine HCl (Thiamine Hcl 100 Mg Tab) 100 mg PO DAILY SUSAN Stop: 10/29/21 08:59 Last Admin: 10/03/21 09:16 Dose: 100 mg Documented by:
--- NOTE | 2021-10-03 14:52 | Pulmonary Consultation ---
Date of Consultation October 03, 2021 Assessment & Plan (1) Acute and chronic respiratory failure with hypoxia: (2) Morbid obesity: (3) Pneumonia due to 2019 novel coronavirus: CT chest 09/28/2021 personally reviewed: Diffuse groundglass opacities appreciated bilaterally upper and lower lobes No significant mediastinal lymphadenopathy Chest x-ray 10/03/2021 personally reviewed: Portable film, bilateral alveolar opacities appreciated seems to be worsened compared to 09/28/2021 --Acute hypoxic respiratory failure Secondary to multilobar COVID-19 pneumonia COVID-19 PCR positive 09/17/2021 CRP 1.87 Procalcitonin 0.06 Continue with O2 supplementation to keep oxygen saturation between 90-92%. Awake proning will be helpful Continue with incentive spirometry Continue with flutter valve. Recommend patient to be kept euvolemic to negative balance --Morbid obesity with probable ANI Plan: Patient is not a candidate for immunoglobulins given that his CRP is less than 7.5 and he is more than 72 hours in the hospital Given the patient had symptoms for more than 14 days. Need to close on superimposed infection. Procalcitonin was 0.06 Add guaifenesin and flutter valve Increase dexamethasone 10 mg on a daily basis give for total of 10 days. Low threshold to think about PE in future although initial CTA was negative Increase Lovenox to 60 mg twice daily Awake proning and CPAP/BiPAP nightly will be beneficial Keep the patient negative balance. Additional dose of 20 mg of Lasix given today Case was discussed with RN and RT Please note the above document was generated using voice recognition software. It may contain grammatical, syntax or spelling errors.Any formal questions or concerns about the content, text or information contained within the body of this dictation should be directly addressed to the provider for clarification. History of Present Illness Attending Physician: Luz Du DO History of Present Illness 56-year-old male with past history of alcohol abuse, hypertension presented to the hospital with complaints of shortness of breath progressively getting worse He was initially diagnosed with COVID-19 on 09/17/2021, He was discharged from the ER on Decadron but he had to come by because of worsening symptoms. Pulmonary consulted because of increasing oxygen requirement At the time of examination patient was on 30 L, 70% FiO2 high flow saturating 91-92% He was not in any respiratory distress He denies any chest pain, he does state that he is having cough but is not bringing up significant amount of phlegm. Denies any hemoptysis He has been trying to sleep on the side. He has been using incentive spirometry and going up to 2000 mL. Denies any dysuria, no diarrhea. Fair appetite. He is unsure if he has sleep apnea but he does state that he is snores at night. No headache. No nausea vomiting Social history: Lifetime non-smoker Allergies Allergy/AdvReac Type Severity Reaction Status Date / Time morphine AdvReac Intermediate ITCHING Verified 09/28/21 14:42 Home Medications Medication Instructions Recorded Confirmed Type folic acid 1 mg tablet 1 mg PO DAILY 07/19/20 09/28/21 History thiamine HCl (vitamin B1) 100 mg 100 mg PO DAILY 07/19/20 09/28/21 History tablet carvedilol 12.5 mg tablet 12.5 mg PO BID 09/17/21 09/28/21 History losartan 50 mg tablet 50 mg PO DAILY 09/17/21 09/28/21 History guaifenesin 600 mg tablet, 600 mg PO BID PRN #30 tab 09/25/21 09/28/21 Rx extended release 12 hr (Mucinex) dexamethasone 6 mg tablet 6 mg PO QAM 09/28/21 09/28/21 History (Decadron) Patient History Medical History Alcohol abuse Hypertension Surgical History No significant past surgical history S/P cardiac cath 07/2020-normal coronary arteries Family History Father Coronary heart disease Mother Coronary heart disease Social History Smoking Status: Never smoker Tobacco Type: Smokeless Tobacco (Dip or Chew) Hx Alcohol Use: Yes Alcohol type: hard liquor Alcohol type Comment: 1 bottle whiskey/2 days Hx Substance Use: No Preferred Language: Mongolian Communication Ability: Effective [employer] Required: No Beliefs That Will Affect Care: None marital status: Current Living Situation: Spouse Other Information That Helps Us Care for You: No Feels Safe at Home: Yes Safety Concerns: Feels Safe At This Time Assistive Devices: Oxygen - Continuous Review of Systems Review of Systems: All systems reviewed & are unremarkable except as noted in HPI & below Physical Exam Physical Exam: Constitutional: No acute distress HEENT: EOMI, PERRLA Respiratory system: Decreased antibiotic, no wheeze, rhonchi, positive breath bilaterally CVS: S1-S2 positive, no murmurs or gallops Abdomen: Soft, nontender, nondistended, positive bowel sounds x4, obese Extremities: +2 pulses bilaterally radialis/ dorsalis pedis, no cyanosis, +1 pitting edema bilateral lower extremity Neuro: Awake alert oriented x3 Psych: Normal mood and affect G/U: No Chua Skin: no rashes, warm and dry Lymphatic: no cervical or axillary lymphadenopathy Results & Data Results & Data ([facility]) Vital Signs (Past 12 Hours) Vital Signs Temp Pulse Pulse Pulse Resp BP Pulse Ox 10/03/21 12:10 67 23 87 L 10/03/21 11:59 90 10/03/21 11:49 36.6 C 69 16 119/77 87 L 10/03/21 08:07 36.5 C 53 L 18 169/100 H 92 10/03/21 07:40 61 22 91 10/03/21 07:29 75 18 91 10/03/21 07:00 50 L 10/03/21 03:48 37.4 C 54 L 16 166/101 H 90 10/03/21 03:24 62 20 90 10/02/21 06:14 10/03/21 08:44 PG Care Time/CCT Total # of Minutes Spent Total Time Spent with Patient: Total time spent is greater than 50% in coordination of care (as documented) at patient's floor/unit and/or counseling patient: Coding Level of Care Code 87360 Initial Inpt Care Lvl 3 Diagnoses Acute and chronic respiratory failure with hypoxia J96.21 Morbid obesity E66.01 Pneumonia due to 2019 novel coronavirus U07.1; J12.82
[2021-10-03] MEDS ORDERED: dexAMETHasone 4 MG in SYRINGE 0 ML IV ONE (15:00)
[2021-10-03] MEDS: guaiFENesin 600 MG TABCR PO SCH (20:08)
[2021-10-03] MEDS: ENOXAPARIN INJ 60 MG/0.6 ML SYR SQ SCH (20:32)
[2021-10-03] MEDS ORDERED: ENOXAPARIN INJ 40 MG/0.4 ML SYR SQ SCH (21:00)
[2021-10-04] MEDS ORDERED: SODIUM CHLORIDE 0.65% NA SOLN 45 ML (OCEAN) ONE (05:49)
[2021-10-04 07:43] LABS: Hematocrit (blood only) 42.8 % (42-52); Hemoglobin 14.8 g/dL (14.0-18.0); Mean Corpuscular Hgb Conc 34.6 g/dL (32-36); Mean Corpuscular Volume 92.4 fL (80-100); Mean Platelet Volume 9.7 fL (7.4-10.4); Platelet Count 254 K/uL (130-400); RDW Coefficient of Variation 13.2 % (11.5-14.5); RDW Standard Deviation 44.8 fL (36.4-46.3); Red Blood Count 4.63 M/uL (4.7-6.1); White Blood Count 8.53 K/uL (4.8-10.8)
[2021-10-04] MEDS: ENOXAPARIN INJ 60 MG/0.6 ML SYR SQ SCH ×2 (08:04→20:48)
[2021-10-04 08:05] LABS: BUN Creatinine Ratio 32.4 (10-20); C Reactive Protein 4.09 mg/dl (0-0.29); Calcium 8.3 mg/dl (8.5-10.1); Creatinine Clr Calc Pharmacy 149.4 ml/min; Est GFR (Non-African American) 100.1 ml/min
[2021-10-04] MEDS: LOSARTAN POTASSIUM 50 MG TAB PO SCH (08:05)
[2021-10-04] MEDS: carvediloL 12.5 MG TAB PO SCH ×2 (08:06→20:48)
[2021-10-04] MEDS: FUROSEMIDE 40 MG/4 ML VIAL IV SCH (08:06)
[2021-10-04] MEDS: FOLIC ACID 1 MG TAB PO SCH (08:07)
[2021-10-04] MEDS: guaiFENesin 600 MG TABCR PO SCH ×2 (08:07→20:48)
[2021-10-04] MEDS: THIAMINE HCL 100 MG TAB PO SCH (08:07)
[2021-10-04] MEDS ORDERED: dexAMETHasone 10 MG in SYRINGE 0 ML IV SCH (09:00)
[2021-10-04] MEDS: amLODIPine BESYLATE 5 MG TAB PO SCH (10:27)
--- NOTE | 2021-10-04 14:48 | Pulmonology Progress Note ---
Date of Service October 04, 2021 Assessment & Plan (1) Acute and chronic respiratory failure with hypoxia: (2) Tobacco use: (3) Pneumonia due to 2019 novel coronavirus: Plan: Impression: 56-year-old male with past history of alcohol abuse, hypertension presented to the hospital with complaints of shortness of breath progressively getting worse He was initially diagnosed with COVID-19 on 09/17/2021, He was discharged from the ER on Decadron but he had to come by because of worsening symptoms. Recommendations: 1. Acute hypoxemic respiratory failure: Continue high flow oxygen as tolerated. The patient was advised to try and self proning is much as possible. May consider transitioning to BiPAP should he fail. His BMI and duration of illness exclude him from ECMO. No evidence of PE on CT angio 2. Covid pneumonitis: Agree with dexamethasone 6 mg daily. No indication for escalation of steroids. 3. Management of the patient's other medical issues per the primary service. The patient is at risk for clinical deterioration and . Hopefully his oxygenation will stabilize without need for more aggressive interventions. 35 min CC time evaluating and managing patient. Admission and Anticipated Discharge Date Admission Date: September 28, 2021 Subjective Patient seen and examined. He is awake alert and eating on high flow. Thinks he is breathing somewhat better. Minimal cough. No chest pain Review of Systems Review of Systems: All systems reviewed & are unremarkable except as noted in Subjective Physical Exam Constitutional: WD/WN, vitals as above Neck: trachea midline, no thyromegaly Respiratory: normal respiratory effort; no respiratory distress, no labored breathing and not tachypneic Auscultation: + wheezes Cardiovascular: RRR, no murmur, no edema Gastrointestinal (Abdomen): normal bowel sounds, soft, nontender, no hepatosplenomegaly Musculoskeletal: Extremities: extremities normal to inspection Skin: no rashes, warm and dry Neurologic: Nonfocal exam Lymphatic: no cervical lymphadenopathy Results & Data Results & Data ([facility]) Vital Signs (Past 12 Hours) Vital Signs Temp Pulse Pulse Resp BP Pulse Ox 10/04/21 12:00 36.7 C 62 20 136/82 91 10/04/21 11:12 20 89 L 10/04/21 10:27 66 133/84 89 L 10/04/21 08:22 73 20 92 10/04/21 07:37 179/109 H 94 10/04/21 07:23 36.5 C 73 18 168/123 H 94 10/04/21 07:00 97 H 10/04/21 05:15 59 L 10/04/21 04:19 36.6 C 57 L 16 146/84 H 92 10/04/21 03:38 61 20 93 Laboratory Results 10/04/21 07:07 10/04/21 08:15 BNP 136 Procalcitonin 0.06 PG Care Time/CCT Total # of Minutes Spent Total Time Spent with Patient: Total time spent is greater than 50% in coordination of care (as documented) at patient's floor/unit and/or counseling patient: Coding Level of Care Code Critical Care 1st 30-74 mins Diagnoses Acute and chronic respiratory failure with hypoxia J96.21 Tobacco use Z72.0 Pneumonia due to 2019 novel coronavirus U07.1; J12.82 Time Spent (min) 35
[2021-10-05] MEDS: ALBUT/IPRATROP 3MG/0.5MG NEB 3 ML VIAL NEB PRN (07:40)
[2021-10-05] MEDS: FOLIC ACID 1 MG TAB PO SCH (07:44)
[2021-10-05] MEDS: LOSARTAN POTASSIUM 50 MG TAB PO SCH (07:44)
[2021-10-05] MEDS: THIAMINE HCL 100 MG TAB PO SCH (07:45)
[2021-10-05] MEDS: amLODIPine BESYLATE 5 MG TAB PO SCH (07:45)
[2021-10-05] MEDS: carvediloL 12.5 MG TAB PO SCH ×2 (07:45→20:07)
[2021-10-05] MEDS: FUROSEMIDE 40 MG/4 ML VIAL IV SCH (07:46)
[2021-10-05] MEDS: guaiFENesin 600 MG TABCR PO SCH ×2 (07:46→20:06)
[2021-10-05] MEDS: ENOXAPARIN INJ 60 MG/0.6 ML SYR SQ SCH ×2 (07:46→20:06)
--- NOTE | 2021-10-05 08:43 | Pulmonology Progress Note ---
Date of Service October 05, 2021 Assessment & Plan (1) Acute and chronic respiratory failure with hypoxia: (2) Tobacco use: (3) Pneumonia due to 2019 novel coronavirus: Plan: Impression: 56-year-old male with past history of alcohol abuse, hypertension presented to the hospital with complaints of shortness of breath progressively getting worse He was initially diagnosed with COVID-19 on 09/17/2021, He was discharged from the ER on [place] but he had to come back because of worsening symptoms. He was then admitted 09/24/21 and discharged home 09/25/21. He then presented to the emergency department again on 09/28/2021 with hypoxia with desaturation down to 83% on room air. Otherwise, he seemed to be stable. Home oxygen was being arranged and then patient decided to be admitted. He has been here since that date. Pulmonary consultation was placed 10/03/2021 and patient was seen by Dr. Jha. Patient was started on Mucinex and flutter valve and his dexamethasone was increased to 10 mg IV daily. He also increase Lovenox to 60 mg twice daily for prophylaxis. Recommendations: 1. Acute hypoxemic respiratory failure: Patient continues to require high flow supplemental oxygen. He also continues on dexamethasone with the dose reduced again to 6 mg IV daily. Patient did not qualify for remdesivir or immunoglobulins. The patient reports that he continues to self prone as much as possible. Patient may require escalation of care. His BMI and duration of illness exclude him from ECMO. No evidence of PE on CT angio completed 09/28/2021 2. Covid pneumonitis: Agree with dexamethasone 6 mg daily. No indication for escalation of steroids. Continue negative balance fluid if possible. Continue incentive spirometer and flutter valve as tolerated. 3. Tobacco abuse: Patient uses smokeless tobacco. It is noted to be at bedside. Advised patient this could exacerbate cough and pneumonitis. Continue work on complete abstention of tobacco use. 4. Obesity: Patient with BMI of 46.1 kg/m. Patient should focus on weight loss with discharge. Advised him to discuss with his primary care physician. 5. DVT prophylaxis: Patient currently receiving 60 mg subcutaneously twice daily. CTA of the chest 09/28/2021 negative for pulmonary emboli. No asymmetrical edema or calf pain noted on examination Thank you for including us in the care of this patient. Please refer to Dr. Nunn's note for further recommendations. Admission and Anticipated Discharge Date Admission Date: September 28, 2021 Supervising Physician Co-Signing Physician Notes Discussed with the critical care ISABELLA and agree with assessment plan as noted. His oxygenation status remains stable. Continue to try and maintain on the dry side. Continue dexamethasone. CRP not high enough to justify additional immune suppression and the patient is likely outside the window. Has been stable but prognosis remains guarded Subjective Attending: Dr. Nunn Patient seen and examined in the [facility] unit room 208. He continues on high flow supplemental oxygen. He is in no acute distress. He is sitting upright in bed watching TV. He is saturating well at rest. He states that when he has any kind of activity he desaturates quickly. This includes going to the bedside com mode where he can desaturate down the 80s. When this occurs, he has no acute distress and he has no chest pain. He recovers quickly. He reports that he self pronates and then alternates sleeping on his sides. Sputum production is decreasing. He has no fever or chills. He denies any significant back pain. He has had no diarrhea. He has no other acute complaints at this time. Review of Systems Review of Systems: All systems reviewed & are unremarkable except as noted in Subjective Physical Exam Physical Exam: GENERAL : No acute distress EYES: No icterus, gaze conjugate NOSE: No evidence of epistaxis MOUTH: No lesions or candidiasis NECK: Supple LUNGS: Some bronchospasms in the upper posterior marie. Induced cough with deep inspiration. HEART: Regular, rate controlled ABDOMEN: Soft, NT, ND, BS Present EXTREMITIES: No LE edema, pedal pulses intact NEURO: A&OX3 Results & Data Results & Data ([facility]) Vital Signs (Past 12 Hours) Vital Signs Temp Pulse Pulse Pulse Resp BP Pulse Ox 10/05/21 07:41 61 16 96 10/05/21 07:19 36.5 C 56 L 21 147/87 H 95 10/05/21 04:00 36.5 C 57 L 12 137/83 92 10/05/21 03:13 54 L 21 92 10/05/21 00:00 58 L 10/04/21 23:15 36.6 C 63 16 140/84 90 10/04/21 23:06 20 89 L Laboratory Results 10/04/21 07:07 10/04/21 08:15 Diagnostic Findings No further diagnostic imaging since 10/03/2021 PG Care Time/CCT Total # of Minutes Spent Total Time Spent with Patient: Total time spent is greater than 50% in coordination of care (as documented) at patient's floor/unit and/or counseling patient: 30 minutes Coding Level of Care Code 87808 Subseq Hosp Care Lvl 2 Diagnoses Acute and chronic respiratory failure with hypoxia J96.21 Tobacco use Z72.0 Pneumonia due to 2019 novel coronavirus U07.1; J12.82 Time Spent (min) 30
[2021-10-05] MEDS: dexAMETHasone 6 MG in SYRINGE 0 ML IV SCH (09:16)
[2021-10-05 11:37] LABS: BUN Creatinine Ratio 29.6 (10-20); Calcium 9.1 mg/dl (8.5-10.1); Creatinine Clr Calc Pharmacy 112.7 ml/min; Est GFR (African American) 90.1 ml/min; Est GFR (Non-African American) 77.7 ml/min; Magnesium 2.2 mg/dl (1.8-2.4); Potassium 4.3 mmol/L (3.5-5.1)
--- NOTE | 2021-10-05 15:48 | Hospitalist Progress Note ---
Date of Service October 04, 2021 This is the bill for October 04, 2021 Assessment & Plan (1) Acute and chronic respiratory failure with hypoxia: Plan: Multifocal COVID-19 pneumonia CTA:No evidence of pulmonary embolism. Cardiomegaly, pulmonary hypertension, and heart failure. Multifocal groundglass opacities compatible with history of viral pneumonia. Continue dexamethasone Encouraged to prone and he has been doing it Lasix as needed Continue oxygen support as needed Nebs as needed Stable clinically (2) Pneumonia due to 2019 novel coronavirus: Plan: Diagnosed in early Sep, currently has had symptoms for approximately 14 days at this point. Management as above Still requiring high flow oxygen Appreciate pulmonary input and recommendation (3) Hypertensive urgency: Plan: In the setting of alcohol use, steroids Carvedilol, losartan which was increased this admission. BP is stable and at goal. Also getting Lasix regularly per plan above. Cont current therapy. 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 (5) Morbid obesity: Plan: BMI:47 (6) Alcohol abuse: Plan: Completed gabapentin protocol Continue thiamine, folic acid Monitor for withdrawal (7) DVT prophylaxis: Plan: Lovenox SQ Full Code Admission and Anticipated Discharge Date Admission Date: September 28, 2021 Subjective 10/04/2021 The patient was seen and examined in telemetry unit and in the Covid room He feels better but is still requiring very high flow oxygen to maintain saturation Review of Systems Review of Systems: All systems reviewed and are unremarkable except as noted below Respiratory: Mild to moderate shortness of breath at rest Physical Exam Physical Exam: Lying in bed comfortably Constitutional: well developed, well nourished, + ill appearing and + obese Eyes: PERRL, conjunctivae normal, anicteric sclerae ENMT: external ear and nose normal, oropharynx normal Neck: trachea midline, no thyromegaly Respiratory: + respiratory distress (Mild distress at rest) and + cough Auscultation: + diminished lung sounds and + crackles (At the bases) Cardiovascular: Rate/Rhythm: regular rate and regular rhythm; not tachycardic Heart Sounds: normal S1 and normal S2; no murmur Extremities: + edema (Trace edema bilaterally) Gastrointestinal (Abdomen): Inspection/Auscultation: normal bowel sounds; abdomen not distended Percussion/Palpation: abdomen soft; abdomen nontender Musculoskeletal: No acute arthritis in any joint Neurologic: Alert, awake and oriented x3 Results & Data Results & Data ([facility]) Vital Signs (Past 12 Hours) Vital Signs Temp Pulse Pulse Resp BP Pulse Ox 10/05/21 14:44 62 14 91 10/05/21 11:47 36.6 C 60 19 135/91 90 10/05/21 10:56 70 16 91 10/05/21 07:41 61 16 96 10/05/21 07:19 36.5 C 56 L 21 147/87 H 95 10/05/21 04:00 36.5 C 57 L 12 137/83 92
--- NOTE | 2021-10-05 15:52 | Hospitalist Progress Note ---
Date of Service October 05, 2021 Assessment & Plan (1) Acute and chronic respiratory failure with hypoxia: Plan: Multifocal COVID-19 pneumonia CTA:No evidence of pulmonary embolism. Cardiomegaly, pulmonary hypertension, and heart failure. Multifocal groundglass opacities compatible with history of viral pneumonia. Continue dexamethasone Encouraged to prone and he has been doing it Lasix as needed-remains cumulative negative of more than 5000 mL as of 10/05/2021 Continue oxygen support as needed Nebs as needed Still requiring 30 L of oxygen at 65% to maintain saturation Appreciate pulmonary input and recommendation Hyponatremia Likely secondary to use of alcohol Has been improving Sodium is 132 as of 10/05/2021 (2) Pneumonia due to 2019 novel coronavirus: Plan: Diagnosed in early Sep, currently has had symptoms for approximately 14 days at this point. Management as above Still requiring high flow oxygen Appreciate pulmonary input and recommendation (3) Hypertensive urgency: Plan: In the setting of alcohol use, steroids Carvedilol, losartan which was increased this admission. BP is stable and at goal. Also getting Lasix regularly per plan above. Cont current therapy. 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 (5) Morbid obesity: Plan: BMI:47 (6) Alcohol abuse: Plan: Completed gabapentin protocol Continue thiamine, folic acid Monitor for withdrawal (7) DVT prophylaxis: Plan: Lovenox SQ Full Code Admission and Anticipated Discharge Date Admission Date: September 28, 2021 Subjective 10/04/2021 The patient was seen and examined in telemetry unit and in the Covid room He feels better but is still requiring very high flow oxygen to maintain saturation 10/05/2021 The patient was seen and examined in telemetry unit and in the Covid room He feels much better but has been requiring 30 L oxygen at a rate of 60% FiO2 to maintain saturation Has minimal cough and generally weak Review of Systems Review of Systems: All systems reviewed and are unremarkable except as noted below Respiratory: Mild to moderate shortness of breath at rest Physical Exam Physical Exam: Lying in bed comfortably Constitutional: well developed, well nourished, + ill appearing and + obese Eyes: PERRL, conjunctivae normal, anicteric sclerae ENMT: external ear and nose normal, oropharynx normal Neck: trachea midline, no thyromegaly Respiratory: + respiratory distress (Mild distress at rest) and + cough Auscultation: + diminished lung sounds and + crackles (At the bases) Cardiovascular: Rate/Rhythm: regular rate and regular rhythm; not tachycardic Heart Sounds: normal S1 and normal S2; no murmur Extremities: + edema (Trace edema bilaterally) Gastrointestinal (Abdomen): Inspection/Auscultation: normal bowel sounds; abdomen not distended Percussion/Palpation: abdomen soft; abdomen nontender Musculoskeletal: No acute arthritis in any joint Neurologic: Alert, awake and oriented x3. No focal sensory and motor deficit appreciated Psychiatric: A+Ox3, euthymic affect Lymphatic: no cervical or axillary lymphadenopathy Results & Data Results & Data ([facility]) Vital Signs (Past 12 Hours) Vital Signs Temp Pulse Pulse Resp BP Pulse Ox 10/05/21 14:44 62 14 91 10/05/21 11:47 36.6 C 60 19 135/91 90 10/05/21 10:56 70 16 91 10/05/21 07:41 61 16 96 10/05/21 07:19 36.5 C 56 L 21 147/87 H 95 10/05/21 04:00 36.5 C 57 L 12 137/83 92 Laboratory Results [facility] 10/05/21 10:44 Sodium 132 L Potassium 4.3 Chloride 98 Carbon Dioxide 26 BUN 32 H Creatinine 1.07 Glucose 113 H Calcium 9.1 Medications Administered Current Inpatient Medications Acetaminophen (Acetaminophen 325 Mg Tab) 650 mg PO Q4H PRN PRN Reason: Pain or Fever Stop: 10/28/21 23:08 Albuterol (Albut/Ipratrop 3mg/0.5mg Neb 3 Ml Vial) 3 ml NEB Q4R PRN PRN Reason: SOB/wheezing Stop: 10/28/21 23:08 Last Admin: 10/05/21 07:40 Dose: 3 ml Documented by: Amlodipine Besylate (Amlodipine Besylate 5 Mg Tab) 5 mg PO QAM SUSAN Stop: 11/03/21 09:29 Last Admin: 10/05/21 07:45 Dose: 5 mg Documented by: Benzonatate (Benzonatate 100 Mg Capsule) 100 mg PO TID PRN PRN Reason: Cough Stop: 10/31/21 21:19 Carvedilol (Carvedilol 12.5 Mg Tab) 12.5 mg PO BID [facility] Stop: 10/28/21 23:08 Last Admin: 10/05/21 07:45 Dose: 12.5 mg Documented by: Enoxaparin Sodium (Enoxaparin Inj 60 Mg/0.6 Ml Syr) 60 mg SQ BID [facility] Stop: 11/02/21 20:59 Last Admin: 10/05/21 07:46 Dose: 60 mg Documented by: Folic Acid (Folic Acid 1 Mg Tab) 1 mg PO DAILY SUSAN Stop: 10/29/21 08:59 Last Admin: 10/05/21 07:44 Dose: 1 mg Documented by: Furosemide (Furosemide 40 Mg/4 Ml Vial) 40 mg IV DAILY [facility] Stop: 11/03/21 08:59 Last Admin: 10/05/21 07:46 Dose: 40 mg Documented by: Guaifenesin (Guaifenesin 600 Mg Tabcr) 600 mg PO Q12 [facility] Stop: 11/02/21 20:59 Last Admin: 10/05/21 07:46 Dose: 600 mg Documented by: Guaifenesin/Codeine Phosphate (Guaifenesin/Codeine 200mg/20mg 10ml Udc) 10 ml PO Q6H PRN PRN Reason: Cough Stop: 10/31/21 21:21 Last Admin: 10/01/21 22:17 Dose: 10 ml Documented by: Hydralazine HCl (Hydralazine Hcl 20 Mg/Ml Vial) 10 mg IV Q6H PRN PRN Reason: SBP>170 Stop: 10/28/21 19:14 Last Admin: 09/29/21 15:38 Dose: 10 mg Documented by: Lorazepam (Ativan) 1 mg in 2 mls @ 2 mls/min IV UD PRN; Protocol PRN Reason: EtOH Withdrawl AWSS Score 6,7 Stop: 10/28/21 23:08 Lorazepam (Ativan) 2 mg in 4 mls @ 4 mls/min IV UD PRN; Protocol PRN Reason: EtOH Withdrawl AWSS Score 8,9 Stop: 10/28/21 23:08 Lorazepam (Ativan) 3 mg in 6 mls @ 4 mls/min IV ONCE PRN; Protocol PRN Reason: EtOH Withdrawl AWSS Score >=10 Stop: 10/28/21 23:08 Dexamethasone 6 mg/ Syringe 1.5 mls @ 1 mls/min IV Q24H SUSAN Stop: 11/04/21 09:59 Last Admin: 10/05/21 09:16 Dose: 1 mls/min Documented by: Losartan Potassium (Losartan Potassium 50 Mg Tab) 100 mg PO DAILY SUSAN Stop: 10/30/21 08:59 Last Admin: 10/05/21 07:44 Dose: 100 mg Documented by: Melatonin (Melatonin 3 Mg Tab) 3 mg PO HS PRN PRN Reason: Sleep Stop: 10/31/21 21:20 Thiamine HCl (Thiamine Hcl 100 Mg Tab) 100 mg PO DAILY SUSAN Stop: 10/29/21 08:59 Last Admin: 10/05/21 07:45 Dose: 100 mg Documented by:
[2021-10-06 06:37] LABS: Hematocrit (blood only) 44.6 % (42-52); Hemoglobin 15.1 g/dL (14.0-18.0); Mean Corpuscular Hemoglobin 31.7 pg (25-34); Mean Corpuscular Hgb Conc 33.9 g/dL (32-36); Mean Corpuscular Volume 93.7 fL (80-100); Mean Platelet Volume 9.9 fL (7.4-10.4); Platelet Count 254 K/uL (130-400); RDW Coefficient of Variation 13.2 % (11.5-14.5); RDW Standard Deviation 45.3 fL (36.4-46.3); Red Blood Count 4.76 M/uL (4.7-6.1); White Blood Count 9.22 K/uL (4.8-10.8)
[2021-10-06 07:15] LABS: BUN Creatinine Ratio 32.2 (10-20); C Reactive Protein 1.42 mg/dl (0-0.29); Calcium 9.3 mg/dl (8.5-10.1); Creatinine Clr Calc Pharmacy 113.6 ml/min; Est GFR (African American) 91.1 ml/min; Est GFR (Non-African American) 78.6 ml/min; Magnesium 2.3 mg/dl (1.8-2.4); Phosphorus 3.4 mg/dl (2.5-4.9)
[2021-10-06] MEDS: amLODIPine BESYLATE 5 MG TAB PO SCH (08:09)
[2021-10-06] MEDS: ENOXAPARIN INJ 60 MG/0.6 ML SYR SQ SCH ×2 (08:09→20:07)
[2021-10-06] MEDS: carvediloL 12.5 MG TAB PO SCH ×2 (08:09→20:07)
[2021-10-06] MEDS: FUROSEMIDE 40 MG/4 ML VIAL IV SCH (08:10)
[2021-10-06] MEDS: FOLIC ACID 1 MG TAB PO SCH (08:10)
[2021-10-06] MEDS: guaiFENesin 600 MG TABCR PO SCH ×2 (08:12→20:07)
[2021-10-06] MEDS: THIAMINE HCL 100 MG TAB PO SCH (08:12)
[2021-10-06] MEDS: LOSARTAN POTASSIUM 50 MG TAB PO SCH (08:12)
[2021-10-06] MEDS: dexAMETHasone 6 MG in SYRINGE 0 ML IV SCH (08:51)
--- NOTE | 2021-10-06 12:31 | Pulmonology Progress Note ---
Date of Service October 06, 2021 Assessment & Plan (1) Acute and chronic respiratory failure with hypoxia: (2) Tobacco use: (3) Pneumonia due to 2019 novel coronavirus: Plan: Impression: 56-year-old male with past history of alcohol abuse, hypertension presented to the hospital with complaints of shortness of breath progressively getting worse and COVID infection. He is stable to slowly improving. Recommendations: 1. Acute hypoxemic respiratory failure: Patient continues to require high flow supplemental oxygen however his requirement has decreased and he appears clinically improved today. He also continues on dexamethasone with the dose at 6 mg IV daily. Recommend 10 days of therapy or until clinically improved, whichever comes first. Patient did not qualify for remdesivir or other immune suppression. The patient reports that he continues to self prone as much as possible. No evidence of PE on CT angio completed 09/28/2021. 2. Covid pneumonitis: Agree with dexamethasone 6 mg daily. No indication for escalation of steroids. Continue negative balance fluid if possible. Continue incentive spirometer and flutter valve as tolerated. 3. Tobacco abuse: Patient uses smokeless tobacco. It is noted to be at bedside. Advised patient this could exacerbate cough and pneumonitis. Continue work on complete abstention of tobacco use. 4. Obesity: Patient with BMI of 46.1 kg/m. Patient should focus on weight loss with discharge. Advised him to discuss with his primary care physician. 5. DVT prophylaxis: Patient currently receiving 60 mg subcutaneously twice daily. CTA of the chest 09/28/2021 negative for pulmonary emboli. No asymmetrical edema or calf pain noted on examination. Can likely decrease to 40 mg once a day per [employer] guidelines. Patient's respiratory status appears stable to slightly improved. Pulmonary will sign off. Please contact us should the patient's clinical condition deteriorate. Admission and Anticipated Discharge Date Admission Date: September 28, 2021 Subjective Patient seen and examined. Discussed with bedside nurse. He appears better today. His work of breathing is definitely less. He is tolerating a diet and we have been able to come down slightly on his FiO2. He reports feeling a little rattly in his right chest. He is not wheezing. Minimal sputum production. Review of Systems Review of Systems: All systems reviewed & are unremarkable except as noted in Subjective Physical Exam Constitutional: WD/WN, vitals as above Neck: trachea midline, no thyromegaly Respiratory: normal respiratory effort; no respiratory distress, no labored breathing and not tachypneic Auscultation: + wheezes Cardiovascular: RRR, no murmur, no edema Gastrointestinal (Abdomen): normal bowel sounds, soft, nontender, no hepatosplenomegaly Musculoskeletal: Extremities: extremities normal to inspection Skin: no rashes, warm and dry Lymphatic: no cervical lymphadenopathy Results & Data Results & Data ([facility]) Vital Signs (Past 12 Hours) Vital Signs Temp Pulse Pulse Resp BP BP Pulse Ox 10/06/21 11:28 66 16 92 10/06/21 11:16 36.6 C 67 22 117/83 95 10/06/21 08:35 70 20 95 10/06/21 07:13 36.5 C 60 12 135/80 92 10/06/21 04:14 36.5 C 68 20 132/86 91 10/06/21 01:09 57 L 20 85 L Laboratory Results 10/06/21 06:04 10/06/21 06:04 Diagnostic Findings No new imaging PG Care Time/CCT Total # of Minutes Spent Total Time Spent with Patient: Total time spent is greater than 50% in coordination of care (as documented) at patient's floor/unit and/or counseling patient: Coding Level of Care Code 05678 Subseq Hosp Care Lvl 2 Diagnoses Acute and chronic respiratory failure with hypoxia J96.21 Tobacco use Z72.0 Pneumonia due to 2019 novel coronavirus U07.1; J12.82
--- NOTE | 2021-10-06 16:12 | Hospitalist Progress Note ---
Date of Service October 06, 2021 Assessment & Plan (1) Acute and chronic respiratory failure with hypoxia: Plan: Multifocal COVID-19 pneumonia CTA:No evidence of pulmonary embolism. Cardiomegaly, pulmonary hypertension, and heart failure. Multifocal groundglass opacities compatible with history of viral pneumonia. Continue dexamethasone Encouraged to prone and he has been doing it Lasix as needed-remains cumulative negative of more than 5000 mL as of 10/05/2021 Continue oxygen support as needed Nebs as needed Still requiring 30 L of oxygen at 65% to maintain saturation Appreciate pulmonary input and recommendation Has been proning as much as possible Remains stable Hyponatremia Likely secondary to use of alcohol Has been improving Sodium is 132 as of 10/05/2021 Sodium level is down to 129 today (2) Pneumonia due to 2019 novel coronavirus: Plan: Diagnosed in early Sep, currently has had symptoms for approximately 14 days at this point. Management as above Still requiring high flow oxygen Appreciate pulmonary input and recommendation (3) Hypertensive urgency: Plan: In the setting of alcohol use, steroids Carvedilol, losartan which was increased this admission. BP is stable and at goal. Also getting Lasix regularly per plan above. Cont current therapy. 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 (5) Morbid obesity: Plan: BMI:47 (6) Alcohol abuse: Plan: Completed gabapentin protocol Continue thiamine, folic acid Monitor for withdrawal -no withdrawal symptoms (7) DVT prophylaxis: Plan: Lovenox SQ Full Code Admission and Anticipated Discharge Date Admission Date: September 28, 2021 Subjective 10/04/2021 The patient was seen and examined in telemetry unit and in the Covid room He feels better but is still requiring very high flow oxygen to maintain saturation 10/05/2021 The patient was seen and examined in telemetry unit and in the Covid room He feels much better but has been requiring 30 L oxygen at a rate of 60% FiO2 to maintain saturation Has minimal cough and generally weak 10/06/2021 The patient was seen and examined in telemetry unit and in the Covid room He feels better but is still requiring high flow oxygen Denies any other symptoms Review of Systems Review of Systems: All systems reviewed and are unremarkable except as noted below Respiratory: Mild to moderate shortness of breath at rest Physical Exam Physical Exam: Lying in bed comfortably Constitutional: well developed, well nourished, + ill appearing and + obese Eyes: PERRL, conjunctivae normal, anicteric sclerae ENMT: external ear and nose normal, oropharynx normal Neck: trachea midline, no thyromegaly Respiratory: + respiratory distress (Mild distress at rest) and + cough Auscultation: + diminished lung sounds and + crackles (At the bases) Cardiovascular: Rate/Rhythm: regular rate and regular rhythm; not tachycardic Heart Sounds: normal S1 and normal S2; no murmur Extremities: + edema (Trac e edema bilaterally) Gastrointestinal (Abdomen): Inspection/Auscultation: normal bowel sounds; abdomen not distended Percussion/Palpation: abdomen soft; abdomen nontender Musculoskeletal: No acute arthritis in any joint Psychiatric: A+Ox3, euthymic affect Lymphatic: no cervical or axillary lymphadenopathy Results & Data Results & Data ([facility]) Vital Signs (Past 12 Hours) Vital Signs Temp Pulse Pulse Resp BP BP Pulse Ox 10/06/21 15:30 36.6 C 59 L 22 121/71 91 10/06/21 14:08 60 18 91 10/06/21 11:28 66 16 92 10/06/21 11:16 36.6 C 67 22 117/83 95 10/06/21 08:35 70 20 95 10/06/21 07:13 36.5 C 60 12 135/80 92 10/06/21 04:14 36.5 C 68 20 132/86 91 Laboratory Results Short CBC 10/06/21 Range/Units 06:04 WBC 9.22 (4.8-10.8) K/uL Hgb 15.1 (14.0-18.0) g/dL Hct 44.6 (42-52) % Plt Count 254 (130-400) K/uL BMP 10/06/21 06:04 Sodium 129 L Potassium 5.0 D Chloride 98 Carbon Dioxide 27 BUN 34 H Creatinine 1.06 Glucose 92 Calcium 9.3 Medications Administered Current Inpatient Medications Acetaminophen (Acetaminophen 325 Mg Tab) 650 mg PO Q4H PRN PRN Reason: Pain or Fever Stop: 10/28/21 23:08 Albuterol (Albut/Ipratrop 3mg/0.5mg Neb 3 Ml Vial) 3 ml NEB Q4R PRN PRN Reason: SOB/wheezing Stop: 10/28/21 23:08 Last Admin: 10/05/21 07:40 Dose: 3 ml Documented by: Amlodipine Besylate (Amlodipine Besylate 5 Mg Tab) 5 mg PO QAM [facility] Stop: 11/03/21 09:29 Last Admin: 10/06/21 08:09 Dose: 5 mg Documented by: Benzonatate (Benzonatate 100 Mg Capsule) 100 mg PO TID PRN PRN Reason: Cough Stop: 10/31/21 21:19 Carvedilol (Carvedilol 12.5 Mg Tab) 12.5 mg PO BID SUSAN Stop: 10/28/21 23:08 Last Admin: 10/06/21 08:09 Dose: 12.5 mg Documented by: Enoxaparin Sodium (Enoxaparin Inj 60 Mg/0.6 Ml Syr) 60 mg SQ BID [facility] Stop: 11/02/21 20:59 Last Admin: 10/06/21 08:09 Dose: 60 mg Documented by: Folic Acid (Folic Acid 1 Mg Tab) 1 mg PO DAILY [facility] Stop: 10/29/21 08:59 Last Admin: 10/06/21 08:10 Dose: 1 mg Documented by: Furosemide (Furosemide 40 Mg/4 Ml Vial) 40 mg IV DAILY SUSAN Stop: 11/03/21 08:59 Last Admin: 10/06/21 08:10 Dose: 40 mg Documented by: Guaifenesin (Guaifenesin 600 Mg Tabcr) 600 mg PO Q12 SUSAN Stop: 11/02/21 20:59 Last Admin: 10/06/21 08:12 Dose: 600 mg Documented by: Guaifenesin/Codeine Phosphate (Guaifenesin/Codeine 200mg/20mg 10ml Udc) 10 ml PO Q6H PRN PRN Reason: Cough Stop: 10/31/21 21:21 Last Admin: 10/01/21 22:17 Dose: 10 ml Documented by: Hydralazine HCl (Hydralazine Hcl 20 Mg/Ml Vial) 10 mg IV Q6H PRN PRN Reason: SBP>170 Stop: 10/28/21 19:14 Last Admin: 09/29/21 15:38 Dose: 10 mg Documented by: Lorazepam (Ativan) 1 mg in 2 mls @ 2 mls/min IV UD PRN; Protocol PRN Reason: EtOH Withdrawl AWSS Score 6,7 Stop: 10/28/21 23:08 Lorazepam (Ativan) 2 mg in 4 mls @ 4 mls/min IV UD PRN; Protocol PRN Reason: EtOH Withdrawl AWSS Score 8,9 Stop: 10/28/21 23:08 Lorazepam (Ativan) 3 mg in 6 mls @ 4 mls/min IV ONCE PRN; Protocol PRN Reason: EtOH Withdrawl AWSS Score >=10 Stop: 10/28/21 23:08 Dexamethasone 6 mg/ Syringe 1.5 mls @ 1 mls/min IV Q24H SUSAN Stop: 11/04/21 09:59 Last Admin: 10/06/21 08:51 Dose: 1 mls/min Documented by: Losartan Potassium (Losartan Potassium 50 Mg Tab) 100 mg PO DAILY SUSAN Stop: 10/30/21 08:59 Last Admin: 10/06/21 08:12 Dose: 100 mg Documented by: Melatonin (Melatonin 3 Mg Tab) 3 mg PO HS PRN PRN Reason: Sleep Stop: 10/31/21 21:20 Thiamine HCl (Thiamine Hcl 100 Mg Tab) 100 mg PO DAILY SUSAN Stop: 10/29/21 08:59 Last Admin: 10/06/21 08:12 Dose: 100 mg Documented by:
[2021-10-07 07:33] LABS: BUN Creatinine Ratio 35.6 (10-20); Calcium 8.6 mg/dl (8.5-10.1); Est GFR (African American) 109.6 ml/min; Est GFR (Non-African American) 94.5 ml/min; Magnesium 2.5 mg/dl (1.8-2.4); Potassium 4.2 mmol/L (3.5-5.1)
[2021-10-07] MEDS: amLODIPine BESYLATE 5 MG TAB PO SCH (08:03)
[2021-10-07] MEDS: FOLIC ACID 1 MG TAB PO SCH (08:04)
[2021-10-07] MEDS: ENOXAPARIN INJ 60 MG/0.6 ML SYR SQ SCH ×2 (08:04→21:03)
[2021-10-07] MEDS: carvediloL 12.5 MG TAB PO SCH ×2 (08:04→21:03)
[2021-10-07] MEDS: FUROSEMIDE 40 MG/4 ML VIAL IV SCH (08:05)
[2021-10-07] MEDS: LOSARTAN POTASSIUM 50 MG TAB PO SCH (08:05)
[2021-10-07] MEDS: guaiFENesin 600 MG TABCR PO SCH ×2 (08:05→21:03)
[2021-10-07] MEDS: THIAMINE HCL 100 MG TAB PO SCH (08:06)
[2021-10-07] MEDS: dexAMETHasone 6 MG in SYRINGE 0 ML IV SCH (10:00)
--- NOTE | 2021-10-07 14:29 | Hospitalist Progress Note ---
Date of Service October 07, 2021 Assessment & Plan (1) Acute and chronic respiratory failure with hypoxia: Plan: Multifocal COVID-19 pneumonia CTA:No evidence of pulmonary embolism. Cardiomegaly, pulmonary hypertension, and heart failure. Multifocal groundglass opacities compatible with history of viral pneumonia. Continue dexamethasone Encouraged to prone and he has been doing it Lasix as needed-remains cumulative negative of more than 5000 mL as of 10/05/2021 Continue oxygen support as needed Nebs as needed Still requiring 30 L of oxygen at 65% to maintain saturation Appreciate pulmonary input and recommendation Has been proning as much as possible Clinically a little better and oxygen requirements is a little down We will continue current management Hyponatremia Likely secondary to use of alcohol Has been improving Sodium is 132 as of 10/05/2021 Sodium level is 132 as of 10/07/2021 (2) Pneumonia due to 2019 novel coronavirus: Plan: Diagnosed in early Sep, currently has had symptoms for approximately 14 days at this point. Management as above Still requiring high flow oxygen Appreciate pulmonary input and recommendation (3) Hypertensive urgency: Plan: In the setting of alcohol use, steroids Carvedilol, losartan which was increased this admission. BP is stable and at goal. Also getting Lasix regularly per plan above. Cont current therapy. 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 (5) Morbid obesity: Plan: BMI:47 (6) Alcohol abuse: Plan: Completed gabapentin protocol Continue thiamine, folic acid Monitor for withdrawal -no withdrawal symptoms (7) DVT prophylaxis: Plan: Lovenox SQ Full Code Admission and Anticipated Discharge Date Admission Date: September 28, 2021 Subjective 10/04/2021 The patient was seen and examined in telemetry unit and in the Covid room He feels better but is still requiring very high flow oxygen to maintain saturation 10/05/2021 The patient was seen and examined in telemetry unit and in the Covid room He feels much better but has been requiring 30 L oxygen at a rate of 60% FiO2 to maintain saturation Has minimal cough and generally weak 10/06/2021 The patient was seen and examined in telemetry unit and in the Covid room He feels better but is still requiring high flow oxygen Denies any other symptoms 10/07/2021 The patient was seen and examined in telemetry unit and in the Covid room He has been feeling better and is requiring a little less oxygen to maintain saturation Otherwise remains stable Review of Systems Review of Systems: All systems reviewed and are unremarkable except as noted below Respiratory: Mild to moderate shortness of breath at rest Physical Exam Physical Exam: Lying in bed comfortably Constitutional: well developed, well nourished, + ill appearing and + obese Eyes: PERRL, conjunctivae normal, anicteric sclerae ENMT: external ear and nose normal, oropharynx normal Neck: trachea midline, no thyromegaly Respiratory: + respiratory distress (Mild distress at rest) and + cough Auscultation: + diminished lung sounds and + crackles (At the bases) Cardiovascular: Rate/Rhythm: regular rate and regular rhythm; not tachycardic Heart Sounds: normal S1 and normal S2; no murmur Extremities: + edema (Trace edema bilaterally) Gastrointestinal (Abdomen): Inspection/Auscultation: normal bowel sounds; abdomen not distended Percussion/Palpation: abdomen soft; abdomen nontender Musculoskeletal: No acute arthritis in any joint Neurologic: Alert, awake and oriented x3. No focal sensory and motor deficit appreciated Psychiatric: A+Ox3, euthymic affect Lymphatic: no cervical or axillary lymphadenopathy Results & Data Results & Data ([facility]) Vital Signs (Past 12 Hours) Vital Signs Temp Pulse Pulse Resp BP Pulse Ox 10/07/21 11:56 36.8 C 57 L 18 104/62 92 10/07/21 10:58 58 L 16 93 10/07/21 07:25 36.6 C 66 18 150/92 H 96 10/07/21 07:21 60 14 96 10/07/21 03:07 53 L 14 89 L Laboratory Results [facility] 10/07/21 06:28 Sodium 132 L Potassium 4.2 D Chloride 101 Carbon Dioxide 22 BUN 32 H Creatinine 0.91 Glucose 92 Calcium 8.6 Medications Administered Current Inpatient Medications Acetaminophen (Acetaminophen 325 Mg Tab) 650 mg PO Q4H PRN PRN Reason: Pain or Fever Stop: 10/28/21 23:08 Albuterol (Albut/Ipratrop 3mg/0.5mg Neb 3 Ml Vial) 3 ml NEB Q4R PRN PRN Reason: SOB/wheezing Stop: 10/28/21 23:08 Last Admin: 10/05/21 07:40 Dose: 3 ml Documented by: Amlodipine Besylate (Amlodipine Besylate 5 Mg Tab) 5 mg PO QAM [facility] Stop: 11/03/21 09:29 Last Admin: 10/07/21 08:03 Dose: 5 mg Documented by: Benzonatate (Benzonatate 100 Mg Capsule) 100 mg PO TID PRN PRN Reason: Cough Stop: 10/31/21 21:19 Carvedilol (Carvedilol 12.5 Mg Tab) 12.5 mg PO BID SUSAN Stop: 10/28/21 23:08 Last Admin: 10/07/21 08:04 Dose: 12.5 mg Documented by: Enoxaparin Sodium (Enoxaparin Inj 60 Mg/0.6 Ml Syr) 60 mg SQ BID [facility]USAN Stop: 11/02/21 20:59 Last Admin: 10/07/21 08:04 Dose: 60 mg Documented by: Folic Acid (Folic Acid 1 Mg Tab) 1 mg PO DAILY [facility]AN Stop: 10/29/21 08:59 Last Admin: 10/07/21 08:04 Dose: 1 mg Documented by: Furosemide (Furosemide 40 Mg/4 Ml Vial) 40 mg IV DAILY SUSAN Stop: 11/03/21 08:59 Last Admin: 10/07/21 08:05 Dose: 40 mg Documented by: Guaifenesin (Guaifenesin 600 Mg Tabcr) 600 mg PO Q12 [facility] Stop: 11/02/21 20:59 Last Admin: 10/07/21 08:05 Dose: 600 mg Documented by: Guaifenesin/Codeine Phosphate (Guaifenesin/Codeine 200mg/20mg 10ml Udc) 10 ml PO Q6H PRN PRN Reason: Cough Stop: 10/31/21 21:21 Last Admin: 10/01/21 22:17 Dose: 10 ml Documented by: Hydralazine HCl (Hydralazine Hcl 20 Mg/Ml Vial) 10 mg IV Q6H PRN PRN Reason: SBP>170 Stop: 10/28/21 19:14 Last Admin: 09/29/21 15:38 Dose: 10 mg Documented by: Lorazepam (Ativan) 1 mg in 2 mls @ 2 mls/min IV UD PRN; Protocol PRN Reason: EtOH Withdrawl AWSS Score 6,7 Stop: 10/28/21 23:08 Lorazepam (Ativan) 2 mg in 4 mls @ 4 mls/min IV UD PRN; Protocol PRN Reason: EtOH Withdrawl AWSS Score 8,9 Stop: 10/28/21 23:08 Lorazepam (Ativan) 3 mg in 6 mls @ 4 mls/min IV ONCE PRN; Protocol PRN Reason: EtOH Withdrawl AWSS Score >=10 Stop: 10/28/21 23:08 Dexamethasone 6 mg/ Syringe 1.5 mls @ 1 mls/min IV Q24H [facility] Stop: 11/04/21 09:59 Last Admin: 10/07/21 10:00 Dose: 1 mls/min Documented by: Losartan Potassium (Losartan Potassium 50 Mg Tab) 100 mg PO DAILY [facility] Stop: 10/30/21 08:59 Last Admin: 10/07/21 08:05 Dose: 100 mg Documented by: Melatonin (Melatonin 3 Mg Tab) 3 mg PO HS PRN PRN Reason: Sleep Stop: 10/31/21 21:20 Thiamine HCl (Thiamine Hcl 100 Mg Tab) 100 mg PO DAILY [facility]AN Stop: 10/29/21 08:59 Last Admin: 10/07/21 08:06 Dose: 100 mg Documented by:
[2021-10-08 08:58] LABS: BUN Creatinine Ratio 30.7 (10-20); Calcium 8.6 mg/dl (8.5-10.1); Creatinine Clr Calc Pharmacy 113.9 ml/min; Est GFR (African American) 91.1 ml/min; Est GFR (Non-African American) 78.6 ml/min; Magnesium 2.5 mg/dl (1.8-2.4); Phosphorus 3.3 mg/dl (2.5-4.9); Potassium 4.7 mmol/L (3.5-5.1)
[2021-10-08] MEDS: dexAMETHasone 6 MG in SYRINGE 0 ML IV SCH (09:53)
[2021-10-08] MEDS: ENOXAPARIN INJ 60 MG/0.6 ML SYR SQ SCH ×2 (09:53→21:51)
[2021-10-08] MEDS: guaiFENesin 600 MG TABCR PO SCH ×2 (09:54→21:52)
[2021-10-08] MEDS: carvediloL 12.5 MG TAB PO SCH ×2 (09:54→21:51)
[2021-10-08] MEDS: amLODIPine BESYLATE 5 MG TAB PO SCH (09:54)
[2021-10-08] MEDS: LOSARTAN POTASSIUM 50 MG TAB PO SCH (09:55)
[2021-10-08] MEDS: FOLIC ACID 1 MG TAB PO SCH (09:55)
[2021-10-08] MEDS: THIAMINE HCL 100 MG TAB PO SCH (09:55)
[2021-10-08] MEDS: FUROSEMIDE 40 MG/4 ML VIAL IV SCH (09:56)
--- NOTE | 2021-10-08 18:01 | Hospitalist Progress Note ---
Date of Service October 08, 2021 Assessment & Plan (1) Acute and chronic respiratory failure with hypoxia: Plan: Multifocal COVID-19 pneumonia CTA:No evidence of pulmonary embolism. Cardiomegaly, pulmonary hypertension, and heart failure. Multifocal groundglass opacities compatible with history of viral pneumonia. Continue dexamethasone Encouraged to prone and he has been doing it Lasix as needed-remains cumulative negative of more than 5000 mL as of 10/05/2021 Lasix held this evening for some hypotension Continue oxygen support as needed Nebs as needed (2) Pneumonia due to 2019 novel coronavirus: Plan: plan as above. OK to come off isolation per Dr. Wilkinson from infection control. (3) Hypertensive urgency: Plan: In the setting of alcohol use, steroids Carvedilol, losartan which was increased this admission. Slight hypotension noted today, held Lasix and changed Losartan back to his home dose. 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 (5) Morbid obesity: Plan: BMI:47 (6) Alcohol abuse: Plan: Completed gabapentin protocol Continue thiamine, folic acid Monitor for withdrawal -no withdrawal symptoms (7) DVT prophylaxis: Plan: Lovenox SQ Full Code Dispo-to home when medically stable. Luz Du DO [facility] Hospitalist Admission and Anticipated Discharge Date Admission Date: September 28, 2021 Subjective 55-year-old obese man with hypertension and history of alcohol abuse presents with Covid pneumonia. denies any issues proning currently feels he is improving tolerating PO denies diarrhea, pain or other issues Review of Systems Review of Systems: All systems reviewed & are unremarkable except as noted in Subjective Physical Exam Physical Exam: CONSTITUTIONAL: obese, vitals as above, generally well- appearing, NAD, proned position EYES: normal conjunctivae, no scleral icterus ENT: external ear and nose normal, MMM NECK: could not visualize/examine as patient was proned. RESPIRATORY: no wheezing, rhonchi or rales. Diminished breath sounds throughout. Normal respiratory effort on hi flow nasal canula CARDIOVASCULAR: could not visualize/examine as patient was proned, no peripheral edema CHEST: could not visualize/examine as patient was proned. GASTROINTESTINAL: could not visualize/examine as patient was proned. MUSCULOSKELETAL: strength 5/5 throughout, head is normocephalic and atraumatic SKIN: warm and dry NEUROLOGIC: CN 2-12 grossly intact, normal cognition, normal speech, no tremor, no gross focal deficits. PSYCHIATRIC: alert cooperative and oriented to person, place and time. Results & Data Results & Data ([facility]) Vital Signs (Past 12 Hours) Vital Signs Temp Pulse Resp BP Pulse Ox 10/08/21 15:46 36.6 C 54 L 20 103/64 94 10/08/21 14:13 85 20 96 10/08/21 12:10 36.8 C 69 17 129/80 93 10/08/21 08:10 70 22 92 10/08/21 07:53 36.5 C 52 L 13 129/71 96 Laboratory Results BMP 10/08/21 07:12 Sodium 132 L Potassium 4.7 Chloride 100 Carbon Dioxide 25 BUN 33 H Creatinine 1.06 Glucose 96 Calcium 8.6 Medications Administered Current Inpatient Medications Acetaminophen (Acetaminophen 325 Mg Tab) 650 mg PO Q4H PRN PRN Reason: Pain or Fever Stop: 10/28/21 23:08 Albuterol (Albut/Ipratrop 3mg/0.5mg Neb 3 Ml Vial) 3 ml NEB Q4R PRN PRN Reason: SOB/wheezing Stop: 10/28/21 23:08 Last Admin: 10/05/21 07:40 Dose: 3 ml Documented by: Amlodipine Besylate (Amlodipine Besylate 5 Mg Tab) 5 mg PO QAM [facility] Stop: 11/03/21 09:29 Last Admin: 10/08/21 09:54 Dose: 5 mg Documented by: Benzonatate (Benzonatate 100 Mg Capsule) 100 mg PO TID PRN PRN Reason: Cough Stop: 10/31/21 21:19 Carvedilol (Carvedilol 12.5 Mg Tab) 12.5 mg PO BID [facility]USAN Stop: 10/28/21 23:08 Last Admin: 10/08/21 09:54 Dose: 12.5 mg Documented by: Enoxaparin Sodium (Enoxaparin Inj 60 Mg/0.6 Ml Syr) 60 mg SQ BID [facility] Stop: 11/02/21 20:59 Last Admin: 10/08/21 09:53 Dose: 60 mg Documented by: Folic Acid (Folic Acid 1 Mg Tab) 1 mg PO DAILY [facility] Stop: 10/29/21 08:59 Last Admin: 10/08/21 09:55 Dose: 1 mg Documented by: Furosemide (Furosemide 40 Mg/4 Ml Vial) 40 mg IV DAILY [facility] Stop: 11/03/21 08:59 Last Admin: 10/08/21 09:56 Dose: 40 mg Documented by: Guaifenesin (Guaifenesin 600 Mg Tabcr) 600 mg PO Q12 [facility] Stop: 11/02/21 20:59 Last Admin: 10/08/21 09:54 Dose: 600 mg Documented by: Guaifenesin/Codeine Phosphate (Guaifenesin/Codeine 200mg/20mg 10ml Udc) 10 ml PO Q6H PRN PRN Reason: Cough Stop: 10/31/21 21:21 Last Admin: 10/01/21 22:17 Dose: 10 ml Documented by: Hydralazine HCl (Hydralazine Hcl 20 Mg/Ml Vial) 10 mg IV Q6H PRN PRN Reason: SBP>170 Stop: 10/28/21 19:14 Last Admin: 09/29/21 15:38 Dose: 10 mg Documented by: Lorazepam (Ativan) 1 mg in 2 mls @ 2 mls/min IV UD PRN; Protocol PRN Reason: EtOH Withdrawl AWSS Score 6,7 Stop: 10/28/21 23:08 Lorazepam (Ativan) 2 mg in 4 mls @ 4 mls/min IV UD PRN; Protocol PRN Reason: EtOH Withdrawl AWSS Score 8,9 Stop: 10/28/21 23:08 Lorazepam (Ativan) 3 mg in 6 mls @ 4 mls/min IV ONCE PRN; Protocol PRN Reason: EtOH Withdrawl AWSS Score >=10 Stop: 10/28/21 23:08 Dexamethasone 6 mg/ Syringe 1.5 mls @ 1 mls/min IV Q24H [facility] Stop: 11/04/21 09:59 Last Admin: 10/08/21 09:53 Dose: 1 mls/min Documented by: Losartan Potassium (Losartan Potassium 50 Mg Tab) 100 mg PO DAILY [facility] Stop: 10/30/21 08:59 Last Admin: 10/08/21 09:55 Dose: 100 mg Documented by: Melatonin (Melatonin 3 Mg Tab) 3 mg PO HS PRN PRN Reason: Sleep Stop: 10/31/21 21:20 Thiamine HCl (Thiamine Hcl 100 Mg Tab) 100 mg PO DAILY [facility]AN Stop: 10/29/21 08:59 Last Admin: 10/08/21 09:55 Dose: 100 mg Documented by:
[2021-10-09] MEDS: guaiFENesin 600 MG TABCR PO SCH ×2 (08:07→20:45)
[2021-10-09] MEDS: LOSARTAN POTASSIUM 50 MG TAB PO SCH (08:07)
[2021-10-09] MEDS: amLODIPine BESYLATE 5 MG TAB PO SCH (08:08)
[2021-10-09] MEDS: THIAMINE HCL 100 MG TAB PO SCH (08:08)
[2021-10-09] MEDS: carvediloL 12.5 MG TAB PO SCH ×2 (08:09→20:45)
[2021-10-09] MEDS: FOLIC ACID 1 MG TAB PO SCH (08:10)
[2021-10-09] MEDS: ENOXAPARIN INJ 60 MG/0.6 ML SYR SQ SCH ×2 (08:10→20:45)
[2021-10-09] MEDS: dexAMETHasone 6 MG in SYRINGE 0 ML IV SCH (09:34)
--- NOTE | 2021-10-09 14:27 | Hospitalist Progress Note ---
Date of Service October 09, 2021 Assessment & Plan (1) Acute and chronic respiratory failure with hypoxia: Plan: Multifocal COVID-19 pneumonia CTA:No evidence of pulmonary embolism. Cardiomegaly, pulmonary hypertension, and heart failure. Multifocal groundglass opacities compatible with history of viral pneumonia. Continue dexamethasone Encouraged to prone and he has been doing it Lasix as needed-remains cumulative negative of more than 5000 mL as of 10/05/2021 Lasix held this evening for some hypotension Continue oxygen support as needed Nebs as needed Clinically much better and oxygen requirements has gone down to almost 0 He will be moved out of isolation and will get PT and OT evaluation Possible discharge tomorrow (2) Pneumonia due to 2019 novel coronavirus: Plan: plan as above. OK to come off isolation per Dr. Wilkinson from infection control. (3) Hypertensive urgency: Plan: In the setting of alcohol use, steroids Carvedilol, losartan which was increased this admission. Slight hypotension noted today, held Lasix and changed Losartan back to his home dose. 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 (5) Morbid obesity: Plan: BMI:47 (6) Alcohol abuse: Plan: Completed gabapentin protocol Continue thiamine, folic acid Monitor for withdrawal -no withdrawal symptoms (7) DVT prophylaxis: Plan: Lovenox SQ Full Code Dispo-to home when medically stable. [facility] Admission and Anticipated Discharge Date Admission Date: September 28, 2021 Subjective 10/04/2021 The patient was seen and examined in telemetry unit and in the Covid room He feels better but is still requiring very high flow oxygen to maintain saturation 10/05/2021 The patient was seen and examined in telemetry unit and in the Covid room He feels much better but has been requiring 30 L oxygen at a rate of 60% FiO2 to maintain saturation Has minimal cough and generally weak 10/06/2021 The patient was seen and examined in telemetry unit and in the Covid room He feels better but is still requiring high flow oxygen Denies any other symptoms 10/07/2021 The patient was seen and examined in telemetry unit and in the Covid room He has been feeling better and is requiring a little less oxygen to maintain saturation Otherwise remains stable 10/09/2021 The patient was seen and examined in telemetry unit and in the Covid room He has been feeling much better and is requiring up to 2 L of oxygen to maintain saturation He will removed of isolation and likely home tomorrow Review of Systems Review of Systems: All systems reviewed and are unremarkable except as noted below Respiratory: Mild to moderate shortness of breath at rest Physical Exam Physical Exam: Lying in bed comfortably Constitutional: well developed, well nourished, + ill appearing and + obese Eyes: PERRL, conjunctivae normal, anicteric sclerae ENMT: external ear and nose normal, oropharynx normal Neck: trachea midline, no thyromegaly Respiratory: + respiratory distress (Mild distress at rest) and + cough Auscultation: + diminished lung sounds and + crackles (At the bases) Cardiovascular: Rate/Rhythm: regular rate and regular rhythm; not tachycardic Heart Sounds: normal S1 and normal S2; no murmur Extremities: + edema (Trace edema bilaterally) Gastrointestinal (Abdomen): Inspection/Auscultation: normal bowel sounds; abdomen not distended Percussion/Palpation: abdomen soft; abdomen nontender Musculoskeletal: No acute arthritis in any joint Neurologic: Alert, awake and oriented x3. No focal sensory and motor are appreciated Psychiatric: A+Ox3, euthymic affect Lymphatic: no cervical or axillary lymphadenopathy Results & Data Results & Data ([facility]) Vital Signs (Past 12 Hours) Vital Signs Temp Pulse Pulse Resp BP BP Pulse Ox 10/09/21 11:17 36.8 C 61 27 H 126/72 90 10/09/21 07:56 55 L 10/09/21 07:47 36.8 C 54 L 24 113/70 98 10/09/21 02:59 36.6 C 50 L 20 132/82 97 Medications Administered Current Inpatient Medications Acetaminophen (Acetaminophen 325 Mg Tab) 650 mg PO Q4H PRN PRN Reason: Pain or Fever Stop: 10/28/21 23:08 Albuterol (Albut/Ipratrop 3mg/0.5mg Neb 3 Ml Vial) 3 ml NEB Q4R PRN PRN Reason: SOB/wheezing Stop: 10/28/21 23:08 Last Admin: 10/05/21 07:40 Dose: 3 ml Documented by: Amlodipine Besylate (Amlodipine Besylate 5 Mg Tab) 5 mg PO QAM SUSAN Stop: 11/03/21 09:29 Last Admin: 10/09/21 08:08 Dose: 5 mg Documented by: Benzonatate (Benzonatate 100 Mg Capsule) 100 mg PO TID PRN PRN Reason: Cough Stop: 10/31/21 21:19 Carvedilol (Carvedilol 12.5 Mg Tab) 12.5 mg PO BID SUSAN Stop: 10/28/21 23:08 Last Admin: 10/09/21 08:09 Dose: Not Given Documented by: Enoxaparin Sodium (Enoxaparin Inj 60 Mg/0.6 Ml Syr) 60 mg SQ BID SUSAN Stop: 11/02/21 20:59 Last Admin: 10/09/21 08:10 Dose: 60 mg Documented by: Folic Acid (Folic Acid 1 Mg Tab) 1 mg PO DAILY SUSAN Stop: 10/29/21 08:59 Last Admin: 10/09/21 08:10 Dose: 1 mg Documented by: Guaifenesin (Guaifenesin 600 Mg Tabcr) 600 mg PO Q12 SUSAN Stop: 11/02/21 20:59 Last Admin: 10/09/21 08:07 Dose: 600 mg Documented by: Guaifenesin/Codeine Phosphate (Guaifenesin/Codeine 200mg/20mg 10ml Udc) 10 ml PO Q6H PRN PRN Reason: Cough Stop: 10/31/21 21:21 Last Admin: 10/01/21 22:17 Dose: 10 ml Documented by: Lorazepam (Ativan) 1 mg in 2 mls @ 2 mls/min IV UD PRN; Protocol PRN Reason: EtOH Withdrawl AWSS Score 6,7 Stop: 10/28/21 23:08 Dexamethasone 6 mg/ Syringe 1.5 mls @ 1 mls/min IV Q24H SUSAN Stop: 11/04/21 09:59 Last Admin: 10/09/21 09:34 Dose: 1 mls/min Documented by: Losartan Potassium (Losartan Potassium 50 Mg Tab) 50 mg PO DAILY SUSAN Stop: 11/08/21 08:59 Last Admin: 10/09/21 08:07 Dose: 50 mg Documented by: Melatonin (Melatonin 3 Mg Tab) 3 mg PO HS PRN PRN Reason: Sleep Stop: 10/31/21 21:20 Thiamine HCl (Thiamine Hcl 100 Mg Tab) 100 mg PO DAILY SUSAN Stop: 10/29/21 08:59 Last Admin: 10/09/21 08:08 Dose: 100 mg Documented by:
--- NOTE | 2021-10-10 10:16 | Hospitalist Progress Note ---
Date of Service October 10, 2021 Assessment & Plan (1) Acute and chronic respiratory failure with hypoxia: Plan: Multifocal COVID-19 pneumonia CTA:No evidence of pulmonary embolism. Cardiomegaly, pulmonary hypertension, and heart failure. Multifocal groundglass opacities compatible with history of viral pneumonia. Continue dexamethasone Encouraged to prone and he has been doing it Lasix as needed-remains cumulative negative of more than 5000 mL as of 10/05/2021 Lasix held this evening for some hypotension Continue oxygen support as needed Nebs as needed Clinically much better and oxygen requirements has gone down to almost 0 He will be moved out of isolation and will get PT and OT evaluation Much improved and is saturating normally on room air Has minimal cough and he passed 2 step O2 saturation test and he does not require any oxygen Be discharged home this morning (2) Pneumonia due to 2019 novel coronavirus: Plan: plan as above. OK to come off isolation per Dr. Wilkinson from infection control. Repeat chest x-ray showed much improvement of the pneumonia Will take up to 6 to 8 weeks for total clearance (3) Hypertensive urgency: Plan: In the setting of alcohol use, steroids Carvedilol, losartan which was increased this admission. Slight hypotension noted today, held Lasix and changed Losartan back to his home dose. Blood pressure remains controlled (4) Tobacco use: Plan: snuff [employer] to quit but currently using this admission. (5) Morbid obesity: Plan: BMI:47 (6) Alcohol abuse: Plan: Completed gabapentin protocol Continue thiamine, folic acid Monitor for withdrawal -no withdrawal symptoms Advised to quit drinking (7) DVT prophylaxis: Plan: Lovenox SQ Full Code Dispo-to home when medically stable. Discharge home today Admission and Anticipated Discharge Date Admission Date: September 28, 2021 Subjective 10/04/2021 The patient was seen and examined in telemetry unit and in the Covid room He feels better but is still requiring very high flow oxygen to maintain saturation 10/05/2021 The patient was seen and examined in telemetry unit and in the Covid room He feels much better but has been requiring 30 L oxygen at a rate of 60% FiO2 to maintain saturation Has minimal cough and generally weak 10/06/2021 The patient was seen and examined in telemetry unit and in the Covid room He feels better but is still requiring high flow oxygen Denies any other symptoms 10/07/2021 The patient was seen and examined in telemetry unit and in the Covid room He has been feeling better and is requiring a little less oxygen to maintain saturation Otherwise remains stable 10/09/2021 The patient was seen and examined in telemetry unit and in the Covid room He has been feeling much better and is requiring up to 2 L of oxygen to maintain saturation He will removed of isolation and likely home tomorrow 10/10/2021 The patient was seen and examined in medical telemetry unit He has been feeling much better and has been saturating normally on room air He denies any symptoms except minimal cough He passed the 2 Step O2 saturation test and does not require any oxygen Review of Systems Review of Systems: All systems reviewed and are unremarkable except as noted below Respiratory: Mild to moderate shortness of breath at rest Physical Exam Physical Exam: Lying in bed comfortably Constitutional: well developed, well nourished, + ill appearing and + obese Eyes: PERRL, conjunctivae normal, anicteric sclerae ENMT: external ear and nose normal, oropharynx normal Neck: trachea midline, no thyromegaly Respiratory: + cough; no respiratory distress (Mild distress at rest) Auscultation: + diminished lung sounds and + crackles (At the bases) Cardiovascular: Rate/Rhythm: regular rate and regular rhythm; not tachycardic Heart Sounds: normal S1 and normal S2; no murmur Extremities: + edema (Trace edema bilaterally) Gastrointestinal (Abdomen): Inspection/Auscultation: normal bowel sounds; abdomen not distended Percussion/Palpation: abdomen soft; abdomen nontender Musculoskeletal: No acute arthritis in any joint Neurologic: Alert, awake and oriented x3. No focal sensory and motor deficit appreciated Psychiatric: A+Ox3, euthymic affect Lymphatic: no cervical or axillary lymphadenopathy Results & Data Results & Data ([facility]) Vital Signs (Past 12 Hours) Vital Signs Temp Pulse Pulse Pulse Pulse Pulse Resp 10/10/21 09:36 102 H 95 H 89 10/10/21 07:27 36.4 C L 60 17 10/09/21 23:55 36.6 C 59 L 20 10/09/21 22:31 36.8 C 50 L 20 Resp Resp Resp BP Pulse Ox Pulse Ox Pulse Ox 10/10/21 09:36 18 18 18 90 91 10/10/21 07:27 116/75 93 10/09/21 23:55 151/93 H 94 11/27/21 22:31 112/72 91 Pulse Ox 10/10/21 09:36 92 10/10/21 07:27 10/09/21 23:55 10/09/21 22:31 Medications Administered Current Inpatient Medications Acetaminophen (Acetaminophen 325 Mg Tab) 650 mg PO Q4H PRN PRN Reason: Pain or Fever Stop: 10/28/21 23:08 Albuterol (Albut/Ipratrop 3mg/0.5mg Neb 3 Ml Vial) 3 ml NEB Q4R PRN PRN Reason: SOB/wheezing Stop: 10/28/21 23:08 Last Admin: 10/05/21 07:40 Dose: 3 ml Documented by: Amlodipine Besylate (Amlodipine Besylate 5 Mg Tab) 5 mg PO QAM SUSAN Stop: 11/03/21 09:29 Last Admin: 10/09/21 08:08 Dose: 5 mg Documented by: Benzonatate (Benzonatate 100 Mg Capsule) 100 mg PO TID PRN PRN Reason: Cough Stop: 10/31/21 21:19 Carvedilol (Carvedilol 12.5 Mg Tab) 12.5 mg PO BID SUSAN Stop: 10/28/21 23:08 Last Admin: 10/09/21 20:45 Dose: 12.5 mg Documented by: Enoxaparin Sodium (Enoxaparin Inj 60 Mg/0.6 Ml Syr) 60 mg SQ BID SUSAN Stop: 11/02/21 20:59 Last Admin: 10/09/21 20:45 Dose: 60 mg Documented by: Folic Acid (Folic Acid 1 Mg Tab) 1 mg PO DAILY SUSAN Stop: 10/29/21 08:59 Last Admin: 10/09/21 08:10 Dose: 1 mg Documented by: Guaifenesin (Guaifenesin 600 Mg Tabcr) 600 mg PO Q12 SUSAN Stop: 11/02/21 20:59 Last Admin: 10/09/21 20:45 Dose: 600 mg Documented by: Guaifenesin/Codeine Phosphate (Guaifenesin/Codeine 200mg/20mg 10ml Udc) 10 ml PO Q6H PRN PRN Reason: Cough Stop: 10/31/21 21:21 Last Admin: 10/01/21 22:17 Dose: 10 ml Documented by: Lorazepam (Ativan) 1 mg in 2 mls @ 2 mls/min IV UD PRN; Protocol PRN Reason: EtOH Withdrawl AWSS Score 6,7 Stop: 10/28/21 23:08 Dexamethasone 6 mg/ Syringe 1.5 mls @ 1 mls/min IV Q24H SUSAN Stop: 11/04/21 09:59 Last Admin: 10/09/21 09:34 Dose: 1 mls/min Documented by: Losartan Potassium (Losartan Potassium 50 Mg Tab) 50 mg PO DAILY SUSAN Stop: 11/08/21 08:59 Last Admin: 10/09/21 08:07 Dose: 50 mg Documented by: Melatonin (Melatonin 3 Mg Tab) 3 mg PO HS PRN PRN Reason: Sleep Stop: 10/31/21 21:20 Thiamine HCl (Thiamine Hcl 100 Mg Tab) 100 mg PO DAILY SUSAN Stop: 10/29/21 08:59 Last Admin: 10/09/21 08:08 Dose: 100 mg Documented by:
[2021-10-10] MEDS: amLODIPine BESYLATE 5 MG TAB PO SCH (10:49)
[2021-10-10] MEDS: FOLIC ACID 1 MG TAB PO SCH (10:50)
[2021-10-10] MEDS: LOSARTAN POTASSIUM 50 MG TAB PO SCH (10:50)
[2021-10-10] MEDS: carvediloL 12.5 MG TAB PO SCH (10:50)
[2021-10-10] MEDS: THIAMINE HCL 100 MG TAB PO SCH (10:51)
[2021-10-10] MEDS: dexAMETHasone 6 MG in SYRINGE 0 ML IV SCH (10:51)
[2021-10-10] MEDS: guaiFENesin 600 MG TABCR PO SCH (10:51)
[2021-10-10] MEDS: ENOXAPARIN INJ 60 MG/0.6 ML SYR SQ SCH (10:52)
--- NOTE | 2021-10-10 11:22 | XRay Report ---
XR chest 1V portable CLINICAL HISTORY: Covid pneumonia. Difficulty breathing COMPARISON STUDY: 10/03/2021 TECHNIQUE: 1 view of the chest FINDINGS: Single frontal view of the chest demonstrates the heart to again be enlarged. Compared to previous ex amination, there has been slight interval improvement of bilateral interstitial and alveolar opacitie s characteristic of Covid pneumonia. There is no evidence for pleural effusion. There is no evidence for vascular congestion. There is no acute osseous pathology. IMPRESSION: Slight interval improvement of bilateral interstitial and alveolar opacities characterist ic of Covid pneumonia. ACT 112: Negative or not required by law. Electronically signed by: Julio Cesar Garcia M.D. 10/10/2021 11:21 AM
--- NOTE | 2021-10-11 08:25 | Discharge Summary ---
Date of Service October 11, 2021 Admission HPI Per Admitting Provider 55 yo obese man with recent admission for covid pneumonia returns for worsening shortness of breath and hypoxia. He is obese with a history of alcohol abuse and tobacco use. He is coughing and wheezing with covid-19 diagnosed on 09/17. He was recently admitted for 2 days and was given decadron and remdesivir. He was discharged on decadron and returns with worsened respiratory symptoms. He denies diarrhea or other GI side effects. He does admit to continued liquor use and using snuff since returning home. He denies chest pain, fever, or chills. Admission Exam Per Admitting Provider Physical Exam: CONSTITUTIONAL: obese, vitals as above, generally well- appearing, NAD EYES: pupils are round and equal bilaterally, normal conjunctivae, no scleral icterus ENT: external ear and nose normal, MMM NECK: trachea midline RESPIRATORY: coarse rhonchi and wheezing throughout all lung marie. Normal respiratory effort CARDIOVASCULAR: regular rate and rhythm, S1 and 2 heard without murmurs, gallops or rubs, no JVD, no peripheral edema CHEST: inspection of chest was normal GASTROINTESTINAL: soft, nontender, ND, no guarding MUSCULOSKELETAL: strength 5/5 throughout, head is normocephalic and atraumatic, ambulating independently SKIN: warm and dry NEUROLOGIC: CN 2-12 grossly intact, normal cognition, normal speech, no tremor, no gross focal deficits. PSYCHIATRIC: alert cooperative and oriented to person, place and time. Principal Diagnosis Acute respiratory failure with hypoxia, COVID-19 pneumonia, alcohol abuse Discharge Exam Lying in bed comfortably Constitutional well developed, well nourished, + ill appearing and + obese Eyes PERRL, conjunctivae normal, anicteric sclerae ENMT external ear and nose normal, oropharynx normal Neck trachea midline, no thyromegaly Respiratory + cough; no respiratory distress (Mild distress at rest) Auscultation: + diminished lung sounds and + crackles (At the bases) Cardiovascular Rate/Rhythm: regular rate and regular rhythm; not tachycardic Heart Sounds: normal S1 and normal S2; no murmur Extremities: + edema (Trace edema bilaterally) Gastrointestinal (Abdomen) Inspection/Auscultation: normal bowel sounds; abdomen not distended Percussion/Palpation: abdomen soft; abdomen nontender Psychiatric A+Ox3, euthymic affect Lymphatic no cervical or axillary lymphadenopathy Discharge Data Allergies Allergy/AdvReac Type Severity Reaction Status Date / Time morphine AdvReac Intermediate ITCHING Verified 09/28/21 14:42 Consultations 09/28/21 16:12 ED Decision to Admit Stat 10/03/21 14:36 Consult Pulmonology Routine Ordered Studies 09/28/21 14:11 CT angio chest PE protocol Stat Hospital Course (1) Acute and chronic respiratory failure with hypoxia: Multifocal COVID-19 pneumonia CTA:No evidence of pulmonary embolism. Cardiomegaly, pulmonary hypertension, and heart failure. Multifocal groundglass opacities compatible with history of viral pneumonia. Continue dexamethasone Encouraged to prone and he has been doing it Lasix as needed-remains cumulative negative of more than 5000 mL as of 10/05/2021 Lasix held this evening for some hypotension Continue oxygen support as needed Nebs as needed Clinically much better and oxygen requirements has gone down to almost 0 He will be moved out of isolation and will get PT and OT evaluation Much improved and is saturating normally on room air Has minimal cough and he passed 2 step O2 saturation test and he does not require any oxygen Be discharged home this morning (2) Pneumonia due to 2019 novel coronavirus: plan as above. OK to come off isolation per Dr. Wilkinson from infection control. Repeat chest x-ray showed much improvement of the pneumonia Will take up to 6 to 8 weeks for total clearance (3) Hypertensive urgency: In the setting of alcohol use, steroids Carvedilol, losartan which was increased this admission. Slight hypotension noted today, held Lasix and changed Losartan back to his home dose. Blood pressure remains controlled (4) Tobacco use: snuff [employer] to quit but currently using this admission. (5) Morbid obesity: BMI:47 (6) Alcohol abuse: Completed gabapentin protocol Continue thiamine, folic acid Monitor for withdrawal -no withdrawal symptoms Advised to quit drinking (7) DVT prophylaxis: Lovenox SQ Full Code Dispo-to home when medically stable. Discharge home today Total Time Total Time Spent Total Time Spent (In Minutes): 40 minutes Discharge Plan Discharge Items Patient Disposition: Home - Self-Care Reason For Visit: COVID PNEUMONIA Discharge Diagnosis: Acute respiratory failure with hypoxia, COVID-19 pneumonia, alcohol abuse Condition on Discharge: Fair Activity: Resume your previous activity Activity Comment: Take it easy for the next few days Non-emergency contact: Primary Care Provider Call non-emergency contact if: you have any medication questions and your symptoms worsen Follow-up/Referrals: Toro Reyes MD [Primary Care Provider] - (Your doctor's office will call you on Monday with an appointment within 7 days) Diet: Heart Healthy Addtl Attending Provider Instructions: Please take precautions to avoid fall Take it easy for the next few days Your new blood pressure medicine will be amlodipine 5 mg daily Advised to quit drinking of alcohol Keep appointments with your healthcare provider Can go back to work after being evaluated by primary care provider within 7 days Pending Studies at Discharge: No Stand-Alone Forms: My [facility], Smoking Cessation Medications and DC Order Prescriptions: New amlodipine [Norvasc] 5 mg Tablet 5 mg PO QAM 30 Days Qty: 30 RF: 0 Continued thiamine HCl (vitamin B1) 100 mg tablet 100 mg PO DAILY RF: 0 folic acid 1 mg tablet 1 mg PO DAILY RF: 0 losartan 50 mg tablet 50 mg PO DAILY RF: 0 carvedilol 12.5 mg tablet 12.5 mg PO BID RF: 0 guaifenesin [Mucinex] 600 mg tablet extended release 12hr 600 mg PO BID PRN (Reason: congestion) Qty: 30 RF: 0 Discontinued dexamethasone [Decadron] 6 mg tablet 6 mg PO QAM RF: 0 Discharge Orders: Discharge Order (Routine); Ordered 10/10/21 Ordered By: Mehrdad Duarte/Other Patient Handouts: COVID-19 Home Care Admission Data Admit Date/Time: 09/28/21 16:57 Attending Provider: Mehrdad Limon Admit Provider: Luz Du Primary Care Provider: Toro Reyes Other Providers: Luz Du ; Roseline Jha Other Interventions: Discharge Summary Assessment (RN) Last Done: 10/10/21 11:42
== END 2021-10-10 12:45 | disposition home or self-care (01) | DRG 177 ==
LOC: ED 13:38 → 2E 16:57 → SUATTDRO 16:57 → 2E 22:43 → 3W 10-09 23:48